=== PATIENT | female | born 2000 | race Caucasian/White ===

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

== ENCOUNTER 2023-08-15 12:39 | Inpatient (IN) | payer OTHER ==
--- NOTE | 2023-08-15 13:18 | ED ---
General Adult HPI - General Chief complaint: Psychiatric Symptoms Stated complaint: Mental Health Petition Time Seen by Provider: 08/15/23 12:48 Source: patient, police, RN notes reviewed Mode of arrival: ambulatory Limitations: no limitations - History of Present Illness Initial comments: Patient is a pleasant 23-year-old female presenting to the emergency department with concerns for mental health evaluation. Patient has petition. Patient admits to being depressed and has suicidal thoughts. Patient did have a sword under her bed, she is unclear what type of sort this was. No homicidal thoughts. No new physical complaints. Patient states she was forced to take time off her medication a month ago. She states the person she lives with would not give her money to get her medications because they thought the medications were making things worse. No alcohol or street drug use. - Related Data Previous Rx's Medication Instructions Recorded Ibuprofen 400 mg PO Q6H PRN #20 tablet 08/21/17 Allergies Allergy/AdvReac Type Severity Reaction Status Date / Time No Known Allergies Allergy Verified 08/21/17 21:32 Review of Systems ROS Statement: Those systems with pertinent positive or pertinent negative responses have been documented in the HPI. ROS Other: All systems not noted in ROS Statement are negative. 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 Absent: tenderness Extremities exam: Present: normal inspection Neurological exam: Present: alert Psychiatric exam: Present: flat affect Skin exam: Present: normal color Course Vital Signs 08/15/23 12:45 Temperature 99.0 F Pulse Rate 103 H Respiratory 18 Rate Blood Pressure 125/87 O2 Sat by Pulse 98 Oximetry Medical Decision Making - Medical Decision Making Was pt. sent in by a medical professional or institution ([facility] Vega, HAND SCREEN PRINTER, urgent care, hospital, or halfway...) When possible be specific @ -No Did you speak to anyone other than the patient for history (EMS, parent, family, police, friend...)? What history was obtained from this source @ -No Did you review nursing and triage notes (agree or disagree)? Why? @ -I reviewed and agree with nursing and triage notes Were old charts reviewed (outside hosp., previous admission, EMS record, old EKG, old radiological studies, urgent care reports/EKG's, halfway records)? Report findings @ -No old charts were reviewed Differential Diagnosis (chest pain, altered mental status, abdominal pain women, abdominal pain men, vaginal bleeding, weakness, fever, dyspnea, syncope, headache, dizziness, GI bleed, back pain, seizure, CVA, palpatations, mental health, musculoskeletal)? @ -Differential Mental Health Depression, anxiety, bipolar, psychosis, schizophrenia, borderline personality, situational depression, adjustment disorder, behavioral disorder, brain tumor, malingering, substance abuse, encephalopathy, medication reaction, dementia, hypothyroidism, degenerative neurologic disorder, lupus.... This is not meant to be all-inclusive list EKG interpreted by me (3pts min.). @ -As above X-rays interpreted by me (1pt min.). @ -None done CT interpreted by me (1pt min.). @ -None done U/S interpreted by me (1pt. min.). @ -None done What testing was considered but not performed or refused? (CT, X-rays, U/S, labs)? Why? @ -None What meds were considered but not given or refused? Why? @ -None Did you discuss the management of the patient with other professionals (professionals i.e. [facility] Vega, HAND SCREEN PRINTER, lab, RT, psych nurse, director social, textile technical officer, teacher, sheriff officer, telephonic case manager)? Give summary @ -Case was discussed with mental health worker with plans for admission. Was smoking cessation discussed for >3mins.? @ -No Was critical care preformed (if so, how long)? @ -No Were there social determinants of health that impacted care today? How? (Homelessness, low income, unemployed, alcoholism, drug addiction, transportation, low edu. Level, literacy, decrease access to med. care, [place] [facility], rehab)? @ -No Was there de-escalation of care discussed even if they declined (Discuss DNR or withdrawal of care, Hospice)? DNR status @ -No What co-morbidities impacted this encounter? (DM, HTN, Smoking, COPD, CAD, Cancer, CVA, ARF, Chemo, Hep., AIDS, mental health diagnosis, sleep apnea, morbid obesity)? @ -None Was patient admitted / discharged? Hospital course, mention meds given and route, prescriptions, significant lab abnormalities, going to OR and other pertinent info. @ -Patient presents with depression and suicidal thoughts. Sleeping with a sword under her bed. Patient seen by mental health with plans for admission Positive clinical certificate completed Undiagnosed new problem with uncertain prognosis? @ -No Drug Therapy requiring intensive monitoring for toxicity (Heparin, Nitro, Insulin, Cardizem)? @ -No Were any procedures done? @ -No Diagnosis/symptom? @ -Depression, suicidal ideation Acute, or Chronic, or Acute on Chronic? @ -Acute, acute Uncomplicated (without systemic symptoms) or Complicated (systemic symptoms)? @ -Default Side effects of treatment? @ -No Exacerbation, Progression, or Severe Exacerbation? @ -No Poses a threat to life or bodily function? How? (Chest pain, [place], [place], pneumonia, PE, COPD, DKA, ARF, appy, cholecystitis, CVA, Diverticulitis, Homicidal, Suicidal, threat to staff... and all critical care pts) @ -No Disposition Clinical Impression: Depression, Suicidal ideation Disposition: TRANSFER TO PSYCH HOSP/UNIT Is patient prescribed a controlled substance at d/c from ED?: No Referrals: Geovanni Augustin MD [Primary Care Provider] - 1-2 days Time of Disposition: 14:57
[2023-08-15 15:13] LABS: Amphetamine Screen,Urine Not Detected (NotDetected); Barbiturate Screen,Urine Not Detected (NotDetected); Benzodiazepines Screen,Urine Not Detected (NotDetected); Cocaine Screen,Urine Not Detected (NotDetected); Methadone Screen, Urine Not Detected (NotDetected); Opiate Screen,Urine Not Detected (NotDetected); Oxycodone Screen, Urine Not Detected (NotDetected); Phencyclidine Screen,Urine Not Detected (NotDetected); Tricyclic Antidepressant,Urine Not Detected (NotDetected); Urn Cannabinoid Scrn Not Detected (NotDetected)
[2023-08-15] MEDS ORDERED: MAGNESIUM HYDROXIDE 2,400 MG/30 ML CUP PO PRN (17:37)
[2023-08-15] MEDS ORDERED: LORazepam 1 MG TAB PO PRN (17:37)
[2023-08-15] MEDS ORDERED: IBUPROFEN 600 MG TAB PO PRN (17:37)
[2023-08-15] MEDS ORDERED: LORazepam 2 MG/ML INJ IM PRN (17:37)
[2023-08-15] MEDS ORDERED: MAG HYDROX/AL HYDROX/SIMETH 355 ML BOTTLE PO PRN (17:37)
[2023-08-15] MEDS ORDERED: haloperidoL 5 MG TAB PO PRN (17:37)
[2023-08-15] MEDS ORDERED: HALOPERIDOL LACTATE 5 MG/ML 1 ML VIAL IM PRN (17:37)
[2023-08-15 21:33] LABS: Appearance,Urine Cloudy (Clear); Bilirubin,Urine Negative (Negative); Blood,Urine Negative (Negative); Color,Urine Light Yellow; Glucose,Urine (UA) Negative (Negative); Ketones,Urine Negative (Negative); Leukocyte Esterase,Urine Negative (Negative); Mucus,Urine Occasional /hpf; Nitrite,Urine Negative (Negative); Protein,Urine Negative (Negative); Squamous Epithelial Cell,Urine 6 /hpf (0-4); Urobilinogen,Urine <2.0 mg/dL (<2.0); WBC,Urine 1 /hpf (0-5)
[2023-08-16 06:37] LABS: Basophils # (A) 0.1 k/uL (0-0.2); Basophils % (A) 2 %; Eosinophils # (A) 0.2 k/uL (0-0.7); Eosinophils % (A) 4 %; HCT 39.8 % (34.0-46.0); HGB 13.1 gm/dL (11.4-16.0); Lymphocytes # (A) 1.4 k/uL (1.0-4.8); Lymphocytes % (A) 29 %; MCH 30.1 pg (25.0-35.0); MCHC 32.9 g/dL (31.0-37.0); MCV 91.4 fL (80.0-100.0); Mean Platelet Volume 6.9; Monocytes # (A) 0.4 k/uL (0-1.0); Monocytes % (A) 7 %; Neutrophils # (A) 2.8 k/uL (1.3-7.7); Neutrophils % (A) 57 %; Platelet Count 308 k/uL (150-450); RBC 4.35 m/uL (3.80-5.40); RDW 12.8 % (11.5-15.5); WBC 4.9 k/uL (3.8-10.6)
[2023-08-16 07:00] LABS: ALT 13 U/L (4-34); AST 21 U/L (14-36); African American GFR (CKD) >90 (>60 ml/min/1.73 sqM); Albumin 3.8 g/dL (3.5-5.0); Alkaline Phosphatase 66 U/L (38-126); Anion Gap 7 mmol/L; Blood Urea Nitrogen 7 mg/dL (7-17); Calcium 9.2 mg/dL (8.4-10.2); Carbon Dioxide 21 mmol/L (22-30); Chloride 111 mmol/L (98-107); Glucose 86 mg/dL (74-99); Non-African American GFR(CKD) >90 (>60 ml/min/1.73 sqM); Potassium 4.6 mmol/L (3.5-5.1); Sodium 139 mmol/L (137-145); Total Bilirubin 0.7 mg/dL (0.2-1.3); Total Protein 6.5 g/dL (6.3-8.2)
[2023-08-16 13:28] LABS: Chol/HDL Ratio 2.34 Ratio; LDL Cholesterol,Calculated 56.1 mg/dL (0.0-131.0); VLDL Calculation 7.52 mg/dL (5.00-40.00)
--- NOTE | 2023-08-16 14:13 | P.MDCNMH ---
History of Present Illness H&P Date: 08/16/23 Chief Complaint: Mental health evaluation * 23-year-old patient with past medical history significant for depression presents to the emergency department for evaluation. Patient has been having suicidal thoughts and has been depressed. Patient has been complaining of interpersonal stressors and financial issues. Patient denies use of alcohol or illicit drugs * Workup at the time of presentation in ER included CBC which showed WBC of 4.9 hemoglobin 13.1 platelet count of 308 * serum chemistry obtained showed sodium 139 potassium 4.6 chloride 111, dioxide 21 BUN 7 creatinine 0.62 TSH of 2.250 * Urine analysis showed cloudy urine, negative for WBC * Urine toxicology negative for any illicit drugs * Patient tested negative for influenza COVID and RSV REVIEW OF SYSTEMS: Depressed mood suicidal ideation CONSTITUTIONAL: No fever, no malaise, no fatigue. HEENT: No recent visual problems or hearing problems. Denied any sore throat. CARDIOVASCULAR: No chest pain, orthopnea, PND, no palpitations, no syncope. PULMONARY: No shortness of breath, no cough, no hemoptysis. GASTROINTESTINAL: No diarrhea, no nausea, no vomiting, no abdominal pain. NEUROLOGICAL: No headaches, no weakness, no numbness. HEMATOLOGICAL: Denies any bleeding or petechiae. GENITOURINARY: Denies any burning micturition, frequency, or urgency. MUSCULOSKELETAL/RHEUMATOLOGICAL: Denies any joint pain, swelling, or any muscle pain. ENDOCRINE: Denies any polyuria or polydipsia. PHYSICAL EXAMINATION: GENERAL: The patient is alert and oriented x3, not in any acute distress. Well developed, well nourished. HEENT: Pupils are round and equally reacting to light. EOMI. CARDIOVASCULAR: S1 and S2 present. Tachycardia noted PULMONARY: Chest is clear to auscultation, no wheezing or crackles. ABDOMEN: Soft, nontender, nondistended, normoactive bowel sounds. No palpable organomegaly. MUSCULOSKELETAL: No joint swelling or deformity. EXTREMITIES: No cyanosis, clubbing, or pedal edema. NEUROLOGICAL: Gross neurological examination did not reveal any focal deficits. SKIN: No rashes. 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 History of Any Multi-Drug Resistant Organisms: None Reported Past Surgical History: No Surgical Hx Reported Smoking Status: Never smoker Past Alcohol Use History: None Reported Past Drug Use History: None Reported Medications and Allergies Home Medications Medication Instructions Recorded Confirmed Type No Known Home Medications 08/15/23 08/15/23 History Allergies Allergy/AdvReac Type Severity Reaction Status Date / Time No Known Allergies Allergy Verified 08/15/23 16:50 Physical Exam Vitals: Vital Signs Temp Pulse Pulse Resp BP BP Pulse Ox 08/15/23 18:41 98.4 F 115 H 20 131/72 98 08/15/23 12:45 99.0 F 103 H 18 125/87 98 Intake and Output 08/15/23 08/16/23 08/16/23 22:59 06:59 14:59 Other: Weight 54.686 kg Cranial Nerve Examination - Cranial Nerves Cranial Nerve I- Olfactory: Intact Cranial Nerve II- Optic: Intact Cranial Nerve III- Oculomotor: Intact Cranial Nerve IV- Trochlear: Intact Cranial Nerve V- Trigeminal: Intact Cranial Nerve - Abducens: Intact Cranial Nerve VII- Facial: Intact Cranial Nerve VIII- Auditory: Intact Cranial Nerve IX- Glossopharyngeal: Intact Cranial Nerve X- Vagus: Intact Cranial Nerve XI- Accessory: Intact Cranial Nerve XII- Hypoglossal: Intact Results CBC & Chem 7: 08/16/23 06:19 08/16/23 06:19 Labs: Abnormal Lab Results - Last 24 Hours (Table) 08/15/23 08/16/23 Range/Units 14:53 06:19 Chloride 111 H (98-107) mmol/L Carbon Dioxide 21 L (22-30) mmol/L Urine Appearance Cloudy H (Clear) Ur Squamous Epith Cells 6 H (0-4) /hpf Urine Mucus Occasional H (None) /hpf Assessment and Plan Assessment: Assessment and plan * Depression with suicidal ideation * Tachycardia rule out arrhythmia * Continue to maintain maximum safety precautions while admitted in behavioral health unit, management per psychiatry team * Internal medicine team will continue to follow along, blood work reviewed including TSH serum chemistry urinalysis toxicology * Continue to monitor vitals, noted to have tachycardia likely secondary to anxiety * Regards to tachycardia EKG ordered * CODE STATUS is full code Time with Patient: Greater than 30
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
[2023-08-16] MEDS: PALIPERIDONE 3 MG TAB.ER.24 PO SCH (20:33)
[2023-08-17] MEDS: DULoxetine HCL 30 MG CAPSULE.DR PO SCH (08:34)
--- NOTE | 2023-08-17 17:50 | P.PN ---
Progress Note - Text Progress Note Date: 08/17/23 Interval history: Patient was seen sitting in TV lounge but keeping to herself. She was directable and agreeable to speak with fiction writer, but appears somewhat guarded and withdrawn. She reports her mood is a "bit better" today. She slept 6+ hours last night and took a nap. Regarding hear eating habits and her weight loss, she denies binging or purging and denies intentionally restricting food for weight loss. She reports she lost weight because she lost her appetite due to depression and there was not much food in the house (lives with mother and uncle) due to finances. She states she has been eating since she was admitted and has reports she has gained 4 pounds. She denies any suicidal or homicidal ideation, intent or plan. She denies any auditory or visual hallucinations today, but there is concern she may be minimizing her symptoms. Patient denies any side effects from the medications and has been compliant with meds. Mental status exam: General Appearance: Patient appears to be stated age, underweight female. Behavior: No agitated behavior. Patient is calm and directable, appears guarded and withdrawn. Speech: Patient's speech is fluent and non-pressured. Mood/Affect: Mood is improving mildly, affect is congruent and constricted. Suicidality/Homicidality: Patient denies having any suicidal or homicidal ideation intent or plan. Perceptions: Patient denies any auditory or visual hallucinations, but there is concern she may be minimizing her symptoms. Though content/process: There is no evidence of any delusional thought content and thought process is linear and goal-directed. Memory and concentration: AOX3, grossly intact for the purposes of this session Judgment and insight: Improving mildly Assessment/Plan: Continue with current diagnosis. Patient continues to meet criteria for inpatient psychiatric admission for symptom stabilization and safety. Cymbalta 30 mg daily started this morning for depression/anxiety. Consider increasing as tolerated. Continue Invega 3 mg QHS for psychosis. Consider increasing as tolerated for psychosis. Monitor for medication compliance and for any psychotropic medication side effects. Will continue to monitor ongoing response to treatment. Encouraged participation in milieu.
[2023-08-18 10:35] VITALS: BMI 16.8
--- NOTE | 2023-08-18 12:03 | P.PN ---
Progress Note - Text Progress Note Date: 08/18/23 Interval history: Patient was seen in the hallway. She was directable and agreeable to speak with ticket writer if the office. She reports her mood is "stabilizing a bit" today. Patient is having a flight of ideas, rambling on about many different topics. Patient is going to groups, and she is sleeping well. Appetite is good. Patient was endorsing paranoia, illogical thought process. She denies any suicidal or homicidal ideation, intent or plan. She denies any auditory or visual hallucinations today, but there is concern she may be minimizing her symptoms. Patient denies any side effects from the medications and has been compliant with meds. Mental status exam: General Appearance: Patient appears to be stated age, underweight female. Behavior: No agitated behavior. Patient is calm and directable, appears guarded and withdrawn. Speech: Patient's speech is fluent and non-pressured. Mood/Affect: Mood is improving mildly, affect is congruent and constricted. Suicidality/Homicidality: Patient denies having any suicidal or homicidal ideation intent or plan. Perceptions: Patient denies any auditory or visual hallucinations, but there is concern she may be minimizing her symptoms. Though content/process: Patient is fairly delusional, endorsing paranoia, multiple loosely formed delusions. Disorganized at times. Memory and concentration: AOX3, grossly intact for the purposes of this session Judgment and insight: Improving mildly IMPRESSIONS: Schizoaffective disorder, depressive type Autism spectrum disorder r/o PTSD Charcot Monalisa Tooth disease by history Plan: -Patient continues to meet criteria for inpatient psychiatric admission for symptom stabilization and safety. Patient has signed adult voluntary form and medication consent and was placed in patient's chart. -Medications: increase Cymbalta 60 mg qd for depression/anxiety, d/c Invega, Risperdal 2mg qhs for psychosis/mood stabilization. -When necessary Ativan and Haldol for agitation/aggression. -NRT - not needed as patient does not smoke. -SW on board for discharge planning. Encouraged the patient to participate in milieu. []
[2023-08-18] MEDS: risperiDONE 2 MG TAB PO SCH (20:26)
[2023-08-19 07:16] VITALS: RESP 16
[2023-08-19] MEDS: DULoxetine HCL 60 MG CAPSULE.DR PO SCH (07:59)
[2023-08-19] MEDS ORDERED: ONDANSETRON 4 MG TAB PO PRN (10:26)
[2023-08-19] MEDS: ZIPRASIDONE 20 MG CAP PO SCH (11:02)
[2023-08-19] MEDS: FLUTICASONE 50MCG/SPRAY NASAL 16GM EA NOSTRIL SCH (11:03)
--- NOTE | 2023-08-19 11:29 | P.PN ---
Progress Note - Text Progress Note Date: 08/19/23 Interval history: Patient was seen in the hallway. She was directable and agreeable to speak with resume writer if the office. She states that she was feeling nauseated and states that she was having difficulty with the medication and was requesting to have it changed. She claims her mood and anxiety are "going up". Patient is going to groups, and she did not sleep well last night, and was awoken by nausea. Patient was asking for antinausea medication. We spoke about trying a different antipsychotic with mood stabilizing properties including Geodon and patient was agreeable to start this today. Appetite is good. Patient appears fairly guarded and withdrawn. She denies any suicidal or homicidal ideation, intent or plan. Patient was mildly less focused today on delusions and paranoia. she denies any auditory or visual hallucinations today, but there is concern she may be minimizing her symptoms. Patient denies any side effects from the medications and has been compliant with meds. Mental status exam: General Appearance: Patient appears to be stated age, underweight female. Behavior: No agitated behavior. Patient is calm and directable, appears guarded and withdrawn. Speech: Patient's speech is fluent and non-pressured. quiet tone. Mood/Affect: Mood is improving mildly, affect is congruent and constricted. Suicidality/Homicidality: Patient denies having any suicidal or homicidal ideation intent or plan. Perceptions: Patient denies any auditory or visual hallucinations, but there is concern she may be minimizing her symptoms. Though content/process: Today, there is no evidence of any delusional thought content and thought process is linear and goal-directed. Memory and concentration: AOX3, grossly intact for the purposes of this session Judgment and insight: Improving mildly IMPRESSIONS: Schizoaffective disorder, depressive type Autism spectrum disorder r/o PTSD Charcot Monalisa Tooth disease by history Plan: -Patient continues to meet criteria for inpatient psychiatric admission for symptom stabilization and safety. Patient has signed adult voluntary form and medication consent and was placed in patient's chart. -Medications: Cymbalta 60 mg qd for depression/anxiety, d/c Risperdal, replace with geodon 20 mg bid for psychosis/mood stabilization, zofran prn for nausea -When necessary Ativan and Haldol for agitation/aggression. -NRT - not needed as patient does not smoke. -SW on board for discharge planning. Encouraged the patient to participate in m ilieu. Likely discharge either versus Friday if patient improves psychiatrically. Will be discharged home.
--- NOTE | 2023-08-20 11:41 | P.PN ---
Progress Note - Text Progress Note Date: 08/20/23 Interval history: Patient was seen in the hallway. She was directable and agreeable to speak with show card writer if the office. She states she is feeling a bit better today. Her anxiety is a little bit present today, and her mood is more stable than yesterday. Appetite is good. Patient claims she slept very well last night. She states that the Geodon has been helping her feel more stable today. Patient still seems mildly guarded. She denies any suicidal or homicidal ideation, intent or plan. Patient was mildly less focused today on delusions and paranoia, improving. she denies any auditory or visual hallucinations today, but there is concern she may be minimizing her symptoms. Patient denies any side effects from the medications and has been compliant with meds. Mental status exam: General Appearance: Patient appears to be stated age, underweight female. Tall, wearing glasses, short hair. Behavior: No agitated behavior. Patient is calm and directable, appears guarded, mildly improving Speech: Patient's speech is fluent and non-pressured. quiet tone. Mood/Affect: Mood is improving mildly, affect is congruent and constricted. Suicidality/Homicidality: Patient denies having any suicidal or homicidal ideation intent or plan. Perceptions: Patient denies any auditory or visual hallucinations. Though content/process: Today, there is no evidence of any delusional thought content and thought process is linear and goal-directed. Less concrete today. Memory and concentration: AOX3, grossly intact for the purposes of this session Judgment and insight: Improving mildly IMPRESSIONS: Schizoaffective disorder, depressive type Autism spectrum disorder r/o PTSD Charcot Monalisa Tooth disease by history Plan: -Patient continues to meet criteria for inpatient psychiatric admission for symptom stabilization and safety. Patient has signed adult voluntary form and medication consent and was placed in patient's chart. -Medications: Cymbalta 60 mg qd for depression/anxiety, geodon 20 mg bid for psychosis/mood stabilization, consider increasing tomorrow if needed. zofran prn for nausea -Collision Worker reviewed EKG. -When necessary Ativan and Haldol for agitation/aggression. -NRT - not needed as patient does not smoke. -SW on board for discharge planning. Encouraged the patient to participate in milieu. Likely discharge Friday if patient continues to improve psychiatrically. Will be discharged home.
--- NOTE | 2023-08-21 10:01 | P.PN ---
Progress Note - Text Progress Note Date: 08/21/23 Interval history: Patient was seen in group. She was directable and agreeable to speak with magnetic tape typewriter operator if the office. She states she is feeling a bit a little financially anxious because of tax season right now. Patient claims her mood has been stable, and besides financial stresses, she feels good. She states that she is eating well, and sleeping well. She denies any suicidal or homicidal ideation, intent or plan. Spoke with patient about the discharge plan for tomorrow, patient agreeable. She denies any auditory or visual hallucinations today, but there is concern she may be minimizing her symptoms. Patient denies any side effects from the medications and has been compliant with meds. Mental status exam: General Appearance: Patient appears to be stated age, underweight female. Tall, wearing glasses, short hair. Behavior: No agitated behavior. Patient is calm and directable, appears guarded, improving Speech: Patient's speech is fluent and non-pressured. quiet tone. Improving mildly Mood/Affect: Mood is improving, affect is congruent and constricted. Improving mildly Suicidality/Homicidality: Patient denies having any suicidal or homicidal ideation intent or plan. Perceptions: Patient denies any auditory or visual hallucinations. Though content/process: Today, there is no evidence of any delusional thought content and thought process is linear and goal-directed. Memory and concentration: AOX3, grossly intact for the purposes of this session Judgment and insight: Improving mildly IMPRESSIONS: Schizoaffective disorder, depressive type Autism spectrum disorder r/o PTSD Charcot Monalisa Tooth disease by history Plan: -Patient continues to meet criteria for inpatient psychiatric admission for symptom stabilization and safety. Patient has signed adult voluntary form and medication consent and was placed in patient's chart. -Medications: Cymbalta 60 mg qd for depression/anxiety, geodon 20 mg bid for psychosis/mood stabilization, zofran prn for nausea -When necessary Ativan and Haldol for agitation/aggression. -NRT - not needed as patient does not smoke. -SW on board for discharge planning. Encouraged the patient to participate in milieu. Likely discharge tomorrow if patient continues to improve psychiatrically. Will be discharged home.
[2023-08-22 07:43] VITALS: BP 108/52; PULSE 85; TEMP 99.3
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
== END 2023-08-22 12:40 | disposition home or self-care (01) | DRG 885 ==
LOC: EC 12:39 → 3MHU 17:34
PROVIDERS: ADMIT Psychiatry & Neurology Psychiatry; ATTEND Psychiatry & Neurology Psychiatry
DX: F25.1 Schizoaffective disorder, depressive type (principal); R45.851 Suicidal ideations; Z68.1 Body mass index [BMI] 19.9 or less, adult; F43.10 Post-traumatic stress disorder, unspecified; G60.0 Hereditary motor and sensory neuropathy; F84.0 Autistic disorder; Z11.52 Encounter for screening for COVID-19; G89.29 Other chronic pain; R63.6 Underweight; Z91.51 Personal history of suicidal behavior; Z56.0 Unemployment, unspecified; Z71.51 Drug abuse counseling and surveillance of drug abuser; Z71.41 Alcohol abuse counseling and surveillance of alcoholic; Z63.72 Alcoholism and drug addiction in family; Z81.3 Family history of other psychoactive substance abuse and dependence; Z81.8 Family history of other mental and behavioral disorders
CPT/HCPCS: 80053; 80061; 80306; 81001; 81025; 82075; 83036; 84443; 85025; 87636; 93005; 99285

== ENCOUNTER 2023-10-19 20:37 | Emergency (ER) | payer MEDICAID, OTHER ==
[2023-10-19 21:22] VITALS: TEMP 98.6
--- NOTE | 2023-10-19 21:23 | ED ---
General Adult HPI - General Chief complaint: Allergic Reaction Stated complaint: possible allergic reaction Time Seen by Provider: 10/19/23 21:06 Source: patient Mode of arrival: ambulatory Limitations: no limitations - History of Present Illness Initial comments: Dictation was produced using [employer] dictation software. please excuse any grammatical, word or spelling errors. Chief Complaint: 23-year-old female presents to the emergency department with multiple complaints History of Present Illness: Patient 23-year-old female she has past medical hi story of psychiatric illness. Patient was admitted to psychiatric floor in July of this year. Patient has history of schizophrenia spectrum disorder, major depressive disorder. Patient after being admitted for few days was started on outpatient Geodon that she takes twice daily. Patient states that she started on this medication a month ago by her psychiatrist. Patient states that she has not followed up with a psychiatrist due to insurance change issues. States that since starting the medication she has had symptoms of photophobia, blurred vision and nausea. Patient also complains of nasal congestion and chest pain. Patient has no cardiac history. States pain does not radiate. Describes it as a sharp pain. The ROS documented in this emergency department record has been reviewed and confirmed by me. Those systems with pertinent positive or negative responses have been documented in the HPI. All other systems are other negative and/or noncontributory. - Related Data Previous Rx's Medication Instructions Recorded DULoxetine HCL [Cymbalta] 60 mg PO DAILY 30 Days #30 cap 08/22/23 Fluticasone Nasal [place] [Flonase 2 spray EA NOSTRIL DAILY #0 ml 08/22/23 Nasal [place]] Ibuprofen [Motrin] 600 mg PO Q6HR PRN tab 08/22/23 Ziprasidone [Geodon] 20 mg PO BID 30 Days #60 cap 08/22/23 Allergies Allergy/AdvReac Type Severity Reaction Status Date / Time No Known Allergies Allergy Verified 10/19/23 20:57 Review of Systems ROS Statement: Those systems with pertinent positive or pertinent negative responses have been documented in the HPI. ROS Other: All systems not noted in ROS Statement are negative. 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 History of Any Multi-Drug Resistant Organisms: None Reported Past Surgical History: No Surgical Hx Reported Past Anesthesia/Blood Transfusion Reactions: No Reported Reaction Past Psychological History: PTSD Smoking Status: Never smoker Past Alcohol Use History: None Reported Past Drug Use History: None Reported General Exam - General Exam Comments Initial Comments: PHYSICAL EXAM: General Impression: Alert and oriented x3, not in acute distress HEENT: Normocephalic atraumatic, extra-ocular movements intact, pupils equal and reactive to light bilaterally, mucous membranes moist. Cardiovascular: Heart regular rate and rhythm Chest: Able to complete full sentences, no retractions, no tachypnea Abdomen: abdomen soft, non-tender, non-distended, no organomegaly Musculoskeletal: Pulses present and equal in all extremities, no peripheral edema Motor: no focal deficits noted Neurological: CN II-XII grossly intact, no focal motor or sensory deficits noted Skin: Intact with no visualized rashes Psych: Normal affect and mood Limitations: no limitations Course Vital Signs 10/19/23 20:53 Temperature 98.6 F Pulse Rate 79 Respiratory 20 Rate Blood Pressure 127/75 O2 Sat by Pulse 99 Oximetry - Reevaluation(s) Reevaluation #1: 10/19/23 22:12 I requested that EPS evaluate the patient and make recommendations on patient's medications. Our EPS nurse stated that she did speak with her psychiatrist who recommended patient hold her nighttime dose and restart her medications tomorrow and follow-up. Medical Decision Making - Medical Decision Making Was pt. sent in by a medical professional or institution ([facility], [facility], urgent care, hospital, or long term...) When possible be specific @ -No Did you speak to anyone other than the patient for history (EMS, parent, family, police, friend...)? What history was obtained from this source @ -No Did you review nursing and triage notes (agree or disagree)? Why? @ -I reviewed and agree with nursing and triage notes Were old charts reviewed (outside hosp., previous admission, EMS record, old EKG, old radiological studies, urgent care reports/EKG's, long term records)? Report findings @ -No old charts were reviewed Differential Diagnosis (chest pain, altered mental status, abdominal pain women, abdominal pain men, vaginal bleeding, musculoskeletal, weakness, fever, dyspnea, syncope, headache, dizziness, GI bleed, back pain, seizure, CVA, palpatations, mental health)? @ -Differential Weakness: Hypoglycemia, shock, sepsis, hyponatremia, anemia, infection, [place], ETOH, adverse medicine reaction, overdose, stroke, this is not meant to be an all-inclusive list. EKG interpreted by me (3pts min.). @ -None done X-rays interpreted by me (1pt min.). @ -Two-view chest x-ray is nonacute CT interpreted by me (1pt min.). @ -None done U/S interpreted by me (1pt. min.). @ -None done What testing was considered but not performed or refused? (CT, X-rays, U/S, labs)? Why? @ -None What meds were considered but not given or refused? Why? @ -None Did you discuss the management of the patient with other professionals (professionals i.e. , PA, EN[employer] PATTERNMAKER, lab, RT, psych nurse, social and political studies professor, laundry presser, teacher, enforcement safety officer, casework specialist)? Give summary @ -See above Was smoking cessation discussed for >3mins.? @ -No Was critical care preformed (if so, how long)? @ -No Were there social determinants of health that impacted care today? How? (Homelessness, low income, unemployed, alcoholism, drug addiction, transportation, low edu. Level, literacy, decrease access to med. care, penitentiary, rehab)? @ -No Was there de-escalation of care discussed even if they declined (Discuss DNR or withdrawal of care, Hospice)? DNR status @ -No What co-morbidities impacted this encounter? (DM, HTN, Smoking, COPD, CAD, Cancer, CVA, ARF, Chemo, Hep., AIDS, mental health diagnosis, sleep apnea, morbid obesity)? @ -None Was patient admitted / discharged? Hospital course, mention meds given and route, prescriptions, significant lab abnormalities, going to OR and other pertinent info. @ -23-year-old female presents emergency department suspicious of adverse reactions to Geodon medications. Vital signs stable. Patient well-appearing at bedside. Labs unremarkable except for some mild hyperglycemia with a level 71. Patient denies any symptoms of hypoglycemia. She is well-appearing at the bedside. Patient given oral intake with improvement of glucose to 98. Testing negative. Patient evaluated EPS who spoke with psychiatrist recommended to her to hold her Geodon night dose today and to resume tomorrow. Patient otherwise discharged with follow-up with outpatient psychiatry. Undiagnosed new problem with uncertain prognosis? @ -No Drug Therapy requiring intensive monitoring for toxicity (Heparin, Nitro, Insulin, Cardizem)? @ -No Were any procedures done? @ -No Diagnosis/symptom? Acute, or Chronic, or Acute on Chronic? Uncomplicated (without systemic symptoms) or Complicated (systemic symptoms)? @ -Adverse reaction to medication Side effects of treatment? @ -No Exacerbation, Progression, or Severe Exacerbation? @ -No Poses a threat to life or bodily function? How? (Chest pain, [place], [place], pneumonia, PE, COPD, DKA, ARF, appy, cholecystitis, CVA, Diverticulitis, Homicidal, Suicidal, threat to staff... and all critical care pts) @ -No - Lab Data Result diagrams: 10/19/23 21:51 10/19/23 21:51 Lab Results 10/19/23 10/19/23 10/19/23 Range/Units 21:51 21:51 21:51 WBC 7.5 (3.8-10.6) k/uL RBC 4.71 (3.80-5.40) m/uL Hgb 13.9 (11.4-16.0) gm/dL Hct 42.9 (34.0-46.0) % MCV 91.2 (80.0-100.0) fL MCH 29.5 (25.0-35.0) pg MCHC 32.4 (31.0-37.0) g/dL RDW 12.3 (11.5-15.5) % Plt Count 321 (150-450) k/uL MPV 7.1 Neutrophils % 60 % Lymphocytes % 29 % Monocytes % 7 % Eosinophils % 2 % Basophils % 1 % Neutrophils # 4.5 (1.3-7.7) k/uL Lymphocytes # 2.1 (1.0-4.8) k/uL Monocytes # 0.5 (0-1.0) k/uL Eosinophils # 0.1 (0-0.7) k/uL Basophils # 0.1 (0-0.2) k/uL Sodium 143 (137-145) mmol/L Potassium 4.1 (3.5-5.1) mmol/L Chloride 108 H (98-107) mmol/L Carbon Dioxide 28 (22-30) mmol/L Anion Gap 7 mmol/L BUN 16 (7-17) mg/dL Creatinine 1.03 (0.52-1.04) mg/dL Est GFR (CKD-EPI)AfAm 88 (>60 ml/min/1.73 sqM) Est GFR (CKD-EPI)NonAf 76 (>60 ml/min/1.73 sqM) Glucose 71 L (74-99) mg/dL POC Glucose (mg/dL) (70-110) mg/dL POC Glu Digital Media Director ID Calcium 9.7 (8.4-10.2) mg/dL Influenza Type A (PCR) Not Detected (Not Detectd) Influenza Type B (PCR) Not Detected (Not Detectd) RSV (PCR) Not Detected (Not Detectd) SARS-CoV-2 (PCR) Not Detected (Not Detectd) 10/19/23 Range/Units 23:48 WBC (3.8-10.6) k/uL RBC (3.80-5.40) m/uL Hgb (11.4-16.0) gm/dL Hct (34.0-46.0) % MCV (80.0-100.0) fL MCH (25.0-35.0) pg MCHC (31.0-37.0) g/dL RDW (11.5-15.5) % Plt Count (150-450) k/uL MPV Neutrophils % % Lymphocytes % % Monocytes % % Eosinophils % % Basophils % % Neutrophils # (1.3-7.7) k/uL Lymphocytes # (1.0-4.8) k/uL Monocytes # (0-1.0) k/uL Eosinophils # (0-0.7) k/uL Basophils # (0-0.2) k/uL Sodium (137-145) mmol/L Potassium (3.5-5.1) mmol/L Chloride (98-107) mmol/L Carbon Dioxide (22-30) mmol/L Anion Gap mmol/L BUN (7-17) mg/dL Creatinine (0.52-1.04) mg/dL Est GFR (CKD-EPI)AfAm (>60 ml/min/1.73 sqM) Est GFR (CKD-EPI)NonAf (>60 ml/min/1.73 sqM) Glucose (74-99) mg/dL POC Glucose (mg/dL) 98 (70-110) mg/dL POC Glu Digital Media Director ID Calcium (8.4-10.2) mg/dL Influenza Type A (PCR) (Not Detectd) Influenza Type B (PCR) (Not Detectd) RSV (PCR) (Not Detectd) SARS-CoV-2 (PCR) (Not Detectd) Disposition Clinical Impression: Reaction, drug, adverse Disposition: HOME SELF-CARE Condition: Fair Instructions (If sedation given, give patient instructions): Non-diabetic Hypoglycemia (ED) Additional Instructions: follow up w psychiatrist Is patient prescribed a controlled substance at d/c from ED?: No Referrals: Geovanni Augustin MD [Primary Care Provider] - 1-2 days Time of Disposition: 00:03
--- NOTE | 2023-10-19 22:05 | XR ---
EXAMINATION TYPE: XR chest 2V DATE OF EXAM: 10/19/2023 COMPARISON: Chest x-ray March 16, 2016 HISTORY: Chest pain TECHNIQUE: Frontal and lateral views of the chest are obtained. FINDINGS: There is no suspicious focal air space opacity, pleural effusion, or pneumothorax seen. The cardiac silhouette size is stab le and within normal limits. The osseous structures are intact. Distended stomach with air-fluid le debbie noted. IMPRESSION: No acute cardiopulmonary process.
[2023-10-19 22:16] LABS: African American GFR (CKD) 88 (>60 ml/min/1.73 sqM); Anion Gap 7 mmol/L; Blood Urea Nitrogen 16 mg/dL (7-17); Calcium 9.7 mg/dL (8.4-10.2); Carbon Dioxide 28 mmol/L (22-30); Chloride 108 mmol/L (98-107); Glucose 71 mg/dL (74-99); Non-African American GFR(CKD) 76 (>60 ml/min/1.73 sqM); Potassium 4.1 mmol/L (3.5-5.1); Sodium 143 mmol/L (137-145)
[2023-10-19 22:30] LABS: Basophils # (A) 0.1 k/uL (0-0.2); Basophils % (A) 1 %; Eosinophils # (A) 0.1 k/uL (0-0.7); Eosinophils % (A) 2 %; HCT 42.9 % (34.0-46.0); HGB 13.9 gm/dL (11.4-16.0); Lymphocytes # (A) 2.1 k/uL (1.0-4.8); Lymphocytes % (A) 29 %; MCH 29.5 pg (25.0-35.0); MCHC 32.4 g/dL (31.0-37.0); MCV 91.2 fL (80.0-100.0); Mean Platelet Volume 7.1; Monocytes # (A) 0.5 k/uL (0-1.0); Monocytes % (A) 7 %; Neutrophils # (A) 4.5 k/uL (1.3-7.7); Neutrophils % (A) 60 %; Platelet Count 321 k/uL (150-450); RBC 4.71 m/uL (3.80-5.40); RDW 12.3 % (11.5-15.5); WBC 7.5 k/uL (3.8-10.6)
[2023-10-19 23:50] LABS: Glucose,Whole Blood 98 mg/dL (70-110)
[2023-10-20 02:11] VITALS: BP 117/76; PULSE 90; RESP 18
== END 2023-10-20 00:20 | disposition home or self-care (01) ==
LOC: EC 20:37
DX: H53.149 Visual discomfort, unspecified (principal); H53.8 Other visual disturbances; R11.0 Nausea; R09.81 Nasal congestion; R07.9 Chest pain, unspecified; T43.595A Adverse effect of other antipsychotics and neuroleptics, initial encounter; Z11.52 Encounter for screening for COVID-19
CPT/HCPCS: 36415; 71046; 80048; 85025; 87636; 93005; 99284

== ENCOUNTER 2023-10-25 11:50 | Inpatient (IN) | payer MEDICAID, OTHER ==
--- NOTE | 2023-10-25 12:38 | ED ---
General Adult HPI - General Chief complaint: Psychiatric Symptoms Stated complaint: Mental health eval Time Seen by Provider: 10/25/23 12:02 Source: patient, RN notes reviewed, old records reviewed Mode of arrival: ambulatory - History of Present Illness Initial comments: 23-year-old female presenting for psychiatric evaluation. Patient is not currently on any medication. She states she has racing thoughts and is unable to sleep. She is also having hallucination. Patient is accompanied by her mother. No suicidal or homicidal ideation. - Related Data Previous Rx's Medication Instructions Recorded DULoxetine HCL [Cymbalta] 60 mg PO DAILY 30 Days #30 cap 08/22/23 Fluticasone Nasal [place] [Flonase 2 spray EA NOSTRIL DAILY #0 ml 08/22/23 Nasal [place]] Ibuprofen [Motrin] 600 mg PO Q6HR PRN tab 08/22/23 Ziprasidone [Geodon] 20 mg PO BID 30 Days #60 cap 08/22/23 Allergies Allergy/AdvReac Type Severity Reaction Status Date / Time No Known Allergies Allergy Verified 10/19/23 20:57 Review of Systems ROS Statement: Those systems with pertinent positive or pertinent negative responses have been documented in the HPI. ROS Other: All systems not noted in ROS Statement are negative. 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 History of Any Multi-Drug Resistant Organisms: None Reported Past Surgical History: No Surgical Hx Reported, EPS Additional Past Surgical History / Comment(s): hx of suicidal thoughts, none recent Past Anesthesia/Blood Transfusion Reactions: No Reported Reaction Past Psychological History: PTSD Smoking Status: Never smoker Past Alcohol Use History: None Reported Past Drug Use History: None Reported General Exam General appearance: alert, in no apparent distress Head exam: Present: atraumatic, normocephalic Eye exam: Present: normal appearance, PERRL Respiratory exam: Present: normal lung sounds bilaterally. Absent: respiratory distress, wheezes Cardiovascular Exam: Present: regular rate, normal rhythm GI/Abdominal exam: Present: soft. Absent: distended, tenderness Extremities exam: Present: normal inspection, normal capillary refill Neurological exam: Present: alert, oriented X3, CN II-XII intact. Absent: motor sensory deficit Psychiatric exam: Present: flat affect, other (Patient standing in the room, paranoid, racing thoughts) Skin exam: Present: warm, dry, intact Course Vital Signs 10/25/23 11:51 Temperature 98 F Pulse Rate 89 Respiratory 18 Rate Blood Pressure 121/81 O2 Sat by Pulse 97 Oximetry Medical Decision Making - Medical Decision Making Was pt. sent in by a medical professional or institution ([facility], RECORDINGS LIBRARIAN, urgent care, hospital, or long-term...) When possible be specific @ -No Did you speak to anyone other than the patient for history (EMS, parent, family, police, friend...)? What history was obtained from this source @ -No Did you review nursing and triage notes (agree or disagree)? Why? @ -I reviewed and agree with nursing and triage notes Were old charts reviewed (outside hosp., previous admission, EMS record, old EKG, old radiological studies, urgent care reports/EKG's, long-term records)? Report findings @ -No old charts were reviewed Differential Mental Health Depression, anxiety, bipolar, psychosis, schizophrenia, borderline personality, situational depression, adjustment disorder, behavioral disorder, brain tumor, malingering, substance abuse, encephalopathy, medication reaction, dementia, hypothyroidism, degenerative neurologic disorder, lupus.... This is not meant to be all-inclusive list EKG interpreted by me (3pts min.). @ -As above X-rays interpreted by me (1pt min.). @ -None done CT interpreted by me (1pt min.). @ -None done U/S interpreted by me (1pt. min.). @ -None done What testing was considered but not performed or refused? (CT, X-rays, U/S, labs)? Why? @ -None What meds were considered but not given or refused? Why? @ -None Did you discuss the management of the patient with other professionals (professionals i.e. [facility], RECORDINGS LIBRARIAN, lab, RT, psych nurse, delinquency prevention social worker, senior instructional designer, teacher, medical officer, case work aide)? Give summary @ -No Was smoking cessation discussed for >3mins.? @ -No Was critical care preformed (if so, how long)? @ -No Were there social determinants of health that impacted care today? How? (Homelessness, low income, unemployed, alcoholism, drug addiction, transportation, low edu. Level, literacy, decrease access to med. care, shelter, rehab)? @ -No Was there de-escalation of care discussed even if they declined (Discuss DNR or withdrawal of care, Hospice)? DNR status @ -No What co-morbidities impacted this encounter? (DM, HTN, Smoking, COPD, CAD, Cancer, CVA, ARF, Chemo, Hep., AIDS, mental health diagnosis, sleep apnea, morbid obesity)? @ -None Was patient admitted / discharged? Hospital course, mention meds given and route, prescriptions, significant lab abnormalities, going to OR and other pertinent info. @Cleared for EPS awaiting disposition at 1230 Patient evaluated by EPS and will be admitted for further psychiatric care Undiagnosed new problem with uncertain prognosis? @ -No Drug Therapy requiring intensive monitoring for toxicity (Heparin, Nitro, Insulin, Cardizem)? @ -No Were any procedures done? @ -No Diagnosis/symptom? @Acute psychosis Acute, or Chronic, or Acute on Chronic? @ -Acute Uncomplicated (without systemic symptoms) or Complicated (systemic symptoms)? @ -Default Side effects of treatment? @ -No Exacerbation, Progression, or Severe Exacerbation? @ -No Poses a threat to life or bodily function? How? (Chest pain, [place], [place], pneumonia, PE, COPD, DKA, ARF, appy, cholecystitis, CVA, Diverticulitis, Homicidal, Suicidal, threat to staff... and all critical care pts) @ -No Disposition Clinical Impression: Acute psychosis Disposition: ADMITTED IP TO THIS HOSP Condition: Stable Is patient prescribed a controlled substance at d/c from ED?: No Referrals: None,Stated [Primary Care Provider] - 1-2 days Time of Disposition: 13:49
[2023-10-25] MEDS ORDERED: MAG HYDROX/AL HYDROX/SIMETH 355 ML BOTTLE PO PRN (15:02)
[2023-10-25] MEDS ORDERED: ACETAMINOPHEN TAB 325 MG TAB PO PRN (15:02)
[2023-10-25] MEDS ORDERED: MAGNESIUM HYDROXIDE 2,400 MG/30 ML CUP PO PRN (15:02)
[2023-10-25] MEDS ORDERED: IBUPROFEN 600 MG TAB PO PRN (15:02)
--- NOTE | 2023-10-25 18:49 | P.PN ---
Progress Note - Text Progress Note Date: 10/25/23 I did attempt to see this patient today, however, nursing informed me that upon informing the patient that I was there to evaluate the patient, patient refused to be seen by medical services at this time.
[2023-10-25 19:54] LABS: Appearance,Urine Cloudy (Clear); Bacteria,Urine Rare /hpf; Bilirubin,Urine Negative (Negative); Blood,Urine Negative (Negative); Calcium Oxalate Crystals,Urine Occasional /hpf; Color,Urine Light Yellow; Glucose,Urine (UA) Negative (Negative); Ketones,Urine Negative (Negative); Leukocyte Esterase,Urine Negative (Negative); Mucus,Urine Rare /hpf; Nitrite,Urine Negative (Negative); PH, Urine 5.5 (5.0-8.0); Protein,Urine Negative (Negative); Specific Gravity,Urine 1.026 (1.001-1.035); Squamous Epithelial Cell,Urine 12 /hpf (0-4); Urobilinogen,Urine <2.0 mg/dL (<2.0); WBC,Urine 8 /hpf (0-5)
[2023-10-25 20:03] LABS: Amphetamine Screen,Urine Not Detected (NotDetected); Barbiturate Screen,Urine Not Detected (NotDetected); Benzodiazepines Screen,Urine Not Detected (NotDetected); Cocaine Screen,Urine Not Detected (NotDetected); Methadone Screen, Urine Not Detected (NotDetected); Opiate Screen,Urine Not Detected (NotDetected); Oxycodone Screen, Urine Not Detected (NotDetected); Phencyclidine Screen,Urine Not Detected (NotDetected); Tricyclic Antidepressant,Urine Not Detected (NotDetected); Urn Cannabinoid Scrn Not Detected (NotDetected)
[2023-10-26] MEDS: LORazepam 1 MG TAB PO PRN (02:20)
[2023-10-26] MEDS: haloperidoL 5 MG TAB PO PRN (02:20)
[2023-10-26 07:25] LABS: Basophils # (A) 0.1 k/uL (0-0.2); Basophils % (A) 1 %; Eosinophils # (A) 0.2 k/uL (0-0.7); Eosinophils % (A) 3 %; HCT 40.5 % (34.0-46.0); HGB 13.1 gm/dL (11.4-16.0); Lymphocytes # (A) 1.9 k/uL (1.0-4.8); Lymphocytes % (A) 28 %; MCH 29.9 pg (25.0-35.0); MCHC 32.3 g/dL (31.0-37.0); MCV 92.4 fL (80.0-100.0); Mean Platelet Volume 6.9; Monocytes # (A) 0.4 k/uL (0-1.0); Monocytes % (A) 7 %; Neutrophils # (A) 3.9 k/uL (1.3-7.7); Neutrophils % (A) 60 %; Platelet Count 328 k/uL (150-450); RBC 4.38 m/uL (3.80-5.40); RDW 12.1 % (11.5-15.5); WBC 6.6 k/uL (3.8-10.6)
[2023-10-26 07:41] LABS: ALT 21 U/L (4-34); AST 38 U/L (14-36); African American GFR (CKD) >90 (>60 ml/min/1.73 sqM); Albumin 3.8 g/dL (3.5-5.0); Alkaline Phosphatase 60 U/L (38-126); Anion Gap 4 mmol/L; Bilirubin, Delta 0.3 mg/dL (0.0-0.2); Bilirubin,Unconjugated 0.6 mg/dL (0.0-1.1); Blood Urea Nitrogen 12 mg/dL (7-17); Calcium 9.4 mg/dL (8.4-10.2); Carbon Dioxide 28 mmol/L (22-30); Chloride 106 mmol/L (98-107); Glucose 80 mg/dL (74-99); Non-African American GFR(CKD) >90 (>60 ml/min/1.73 sqM); Potassium 4.6 mmol/L (3.5-5.1); Sodium 138 mmol/L (137-145); Total Bilirubin 0.9 mg/dL (0.2-1.3); Total Protein 6.3 g/dL (6.3-8.2)
[2023-10-26 13:29] VITALS: BMI 17.1
--- NOTE | 2023-10-26 14:22 | P.HP ---
Psychiatric H&P - . H&P Date: 10/26/23 History & Physical: IDENTIFYING DATA: Patient is a 23 year old female with history of Charcot-Monalisa Tooth Disease. HPI: Patient presented to the hospital on 10/25/23 and per ER note, "Patient is not currently on any medication. She states she has racing thoughts and is unable to sleep. She is also having hallucination. Patient is accompanied by her mother.". Per EPS note from 10/25/23, "Pt standing in the ED room pacing the entire assessment. Pts mother Tiffany in in the room with the pt. Pt agreeable to have mother present during the assessment. Pt alert and oriented able to state name, address and phone number and aware she is at [facility]. Pt reports she sees a virtual therapist who advised her 2 days ago to stop taking Geodon due to racing thoughts, light sensitivity and not being able to concentrate. Pt reports taking no other medications. Reports she has not slept in 2 days and has very high anxiety. Pt denies SI or HI. Reports hallucination this morning of being at a construction site. Pt feels she needs admission to the hospital for medications. Per Pts mother Tiffany, the pt needs admission and is concerned since pt has had suicidal thoughts in August of 2023. The mother states pt has been pacing for one week and is very concerned about safety due to decompensation, impulsivity, past suicidal thoughts and concern over keeping pt safe. 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 [address] called guardian p [phone] who advised they are guardians of pt. Jakob reports pt has been struggling and he is agreeable if pt is admitted to the [facility]." On my assessment, patient reports feeling restless, anxious, racing thoughts. On the morning of admission she was having auditory hallucinations of being at a construction site and there were two other people in her room doing construction. 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 Patient denies any suicidal or homicidal ideation, intent or plan. At this time patient denies any auditory or visual hallucinations. She denies paranoid ideations currently. She reports poor sleep last night, was awake at 2am pacing in the hallways, very anxious. She was given Haldol 5 mg po x 1 and Ativan 1 mg po x 1 and was able to return to sleep after that. She reports difficulty falling asleep and staying asleep at home because she "can't sit still". She stopped the Geodon 20 mg BID two days before presenting to the ER due to akathisia, double vision and light sensativity. The double vision and light sensativity have resolved since stopping the Geodon, however she still feels anxious and restless, feels "very anxious like a live wire" making it difficult to sleep and had several breakdowns. She reports she also stopped the Cymbalta a week after her last hospital discharge in 08/2023 due to insurance problems and not being able to afford the co-pay. Patient denies any flight of ideas, racing thoughts, and increased in goal directed behavior. Patient denies alcohol, drug or tobacco use. PAST PSYCHIATRIC HISTORY: Patient states that she is diagnosed with depression, PTSD, autism, psychosis, schizoaffective disorder-depressive type. Psychiatric medications: Invega, Risperdal, Geodon, Prestiq 100 mg daily (almost a year), Intuniv (?) (almost a year), Outpatient psychiatrist: [facility] (Yess[facility] ROBB); [facility] no longer accepts her insurance so she needs to find another provider; Daniel for therapy at [facility], EMDR Previous psychiatric hospitalizations: [facility] 08/2023 for psychosis and suicide attempt; [facility] in January 2020 for depression, suicide attempt (threw self down the stairs) Suicide attempts in the past: More than 5 times by throwing self down the stairs in 2019 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 SOCIAL HISTORY: Patient was born and raised in [place], [place]. Parents when she was 5 yo. Has a maternal half-brother and paternal step-brother. Not close with father. Lives with mother. Unemployed, trying to find another job. MENTAL STATUS EXAM: General Appearance: Patient appears to be stated age, tall slender female, acne, dressed in bright orange sweatshirt and black pants. Fair hygiene and grooming. Behavior: Patient is seated without any agitated behavior. Speech: Patient's speech is fluent and non-pressured. Mood/Affect: Patient reports their mood is "very anxious", affect is congruent and constricted. Suicidality/Homicidality: Patient denies having any homicidal ideation intent or plan. Denies any suicidal ideation, intent or plan. Perceptions: Patient denies any visual hallucinations and denies any auditory hallucinations now, but have AVH in the morning of admission.. Though content/process: There is no evidence of any delusional thought content and thought process is linear and goal-directed. Memory and concentration: AOX3, grossly intact for the purposes of this session. Can spell "WORLD" backwards Judgment and insight: fair STRENGTHS/WEAKNESSES: Strength is that patient is resilient. Weakness is that patient problems with insurance coverage. INTELLECT: Average IMPRESSIONS: Schizoaffective disorder, depressed type (provisional) Autism spectrum disorder PTSD PLAN: -Patient is admitted under voluntary status to MHU for stabilization of psychiatric symptoms and safety. Patient has signed adult voluntary form and medication consent and is placed in patient's chart. -Medications: Start Prestiq 50 mg daily in the morning for depression/anxiety. Start Seroquel 50 mg QHS for augmentation/psychosis/sleep. -Ativan and Haldol PRN for agitation/aggression -Patient was informed of the risks, benefits and side effects of the medication and patient verbally consented to taking the medications. Patient signed med consent form and was placed in chart. -Internal Medicine consult to perform medical evaluation and physical. -NRT - not needed - on board for discharge planning. Encourage patient to participate in groups to work on coping skills. Allergies Allergy/AdvReac Type Severity Reaction Status Date / Time No Known Allergies Allergy Verified 10/25/23 15:11 Vital Signs Temp 98.1 F 10/26/23 06:24 Pulse 92 10/26/23 06:24 Resp 18 10/26/23 06:24 BP 118/61 10/26/23 06:24 Pulse Ox 99 10/26/23 06:24 FiO2 Intake & Output 10/25/23 10/26/23 10/26/23 18:59 06:59 18:59 Weight 57.198 kg 57.198 kg Laboratory Last Values WBC 6.6 k/uL (3.8-10.6) 10/26/23 06:55 RBC 4.38 m/uL (3.80-5.40) 10/26/23 06:55 Hgb 13.1 gm/dL (11.4-16.0) 10/26/23 06:55 Hct 40.5 % (34.0-46.0) 10/26/23 06:55 MCV 92.4 fL (80.0-100.0) 10/26/23 06:55 MCH 29.9 pg (25.0-35.0) 10/26/23 06:55 MCHC 32.3 g/dL (31.0-37.0) 10/26/23 06:55 RDW 12.1 % (11.5-15.5) 10/26/23 06:55 Plt Count 328 k/uL (150-450) 10/26/23 06:55 MPV 6.9 10/26/23 06:55 Neutrophils % 60 % 10/26/23 06:55 Lymphocytes % 28 % 10/26/23 06:55 Monocytes % 7 % 10/26/23 06:55 Eosinophils % 3 % 10/26/23 06:55 Basophils % 1 % 10/26/23 06:55 Neutrophils # 3.9 k/uL (1.3-7.7) 10/26/23 06:55 Lymphocytes # 1.9 k/uL (1.0-4.8) 10/26/23 06:55 Monocytes # 0.4 k/uL (0-1.0) 10/26/23 06:55 Eosinophils # 0.2 k/uL (0-0.7) 10/26/23 06:55 Basophils # 0.1 k/uL (0-0.2) 10/26/23 06:55 Sodium 138 mmol/L (137-145) 10/26/23 06:55 Potassium 4.6 mmol/L (3.5-5.1) 10/26/23 06:55 Chloride 106 mmol/L (98-107) 10/26/23 06:55 Carbon Dioxide 28 mmol/L (22-30) 10/26/23 06:55 Anion Gap 4 mmol/L 10/26/23 06:55 BUN 12 mg/dL (7-17) 10/26/23 06:55 Creatinine 0.63 mg/dL (0.52-1.04) 10/26/23 06:55 Est GFR (CKD-EPI)AfAm >90 (>60 ml/min/1.73 sqM) 10/26/23 06:55 Est GFR (CKD-EPI)NonAf >90 (>60 ml/min/1.73 sqM) 10/26/23 06:55 Glucose 80 mg/dL (74-99) 10/26/23 06:55 Calcium 9.4 mg/dL (8.4-10.2) 10/26/23 06:55 Total Bilirubin 0.9 mg/dL (0.2-1.3) 10/26/23 06:55 Conjugated Bilirubin 0.0 mg/dL (0.0-0.3) 10/26/23 06:55 Unconjugated Bilirubin 0.6 mg/dL (0.0-1.1) 10/26/23 06:55 Delta Bilirubin 0.3 mg/dL (0.0-0.2) H 10/26/23 06:55 AST 38 U/L (14-36) H 10/26/23 06:55 ALT 21 U/L (4-34) 10/26/23 06:55 Alkaline Phosphatase 60 U/L (38-126) 10/26/23 06:55 Total Protein 6.3 g/dL (6.3-8.2) 10/26/23 06:55 Albumin 3.8 g/dL (3.5-5.0) 10/26/23 06:55 TSH 3.710 mIU/L (0.465-4.680) 10/26/23 06:55 Urine Color Light Yellow 10/25/23 19:43 Urine Appearance Cloudy (Clear) H 10/25/23 19:43 Urine pH 5.5 (5.0-8.0) 10/25/23 19:43 Ur Specific [place] 1.026 (1.001-1.035) 10/25/23 19:43 Urine Protein Negative (Negative) 10/25/23 19:43 Urine Glucose (UA) Negative (Negative) 10/25/23 19:43 Urine Ketones Negative (Negative) 10/25/23 19:43 Urine Blood Negative (Negative) 10/25/23 19:43 Urine Nitrite Negative (Negative) 10/25/23 19:43 Urine Bilirubin Negative (Negative) 10/25/23 19:43 Urine Urobilinogen <2.0 mg/dL (<2.0) 10/25/23 19:43 Ur Leukocyte Esterase Negative (Negative) 10/25/23 19:43 Urine WBC 8 /hpf (0-5) H 10/25/23 19:43 Ur Squamous Epith Cells 12 /hpf (0-4) H 10/25/23 19:43 Calcium Oxalate Crystal Occasional /hpf (None) H 10/25/23 19:43 Urine Bacteria Rare /hpf (None) H 10/25/23 19:43 Urine Mucus Rare /hpf (None) H 10/25/23 19:43 Urine HCG, Qual Not Detected (Not Detectd) 10/25/23 19:43 Urine Opiates Screen Not Detected (NotDetected) 10/25/23 19:35 Ur Oxycodone Screen Not Detected (NotDetected) 10/25/23 19:35 Urine Methadone Screen Not Detected (NotDetected) 10/25/23 19:35 Ur Barbiturates Screen Not Detected (NotDetected) 10/25/23 19:35 U Tricyclic Antidepress Not Detected (NotDetected) 10/25/23 19:35 Ur Phencyclidine Scrn Not Detected (NotDetected) 10/25/23 19:35 Ur Amphetamines Screen Not Detected (NotDetected) 10/25/23 19:35 U Methamphetamines Scrn Not Detected (NotDetected) 10/25/23 19:35 U Benzodiazepines Scrn Not Detected (NotDetected) 10/25/23 19:35 Urine Cocaine Screen Not Detected (NotDetected) 10/25/23 19:35 U Marijuana (THC) Screen Not Detected (NotDetected) 10/25/23 19:35 SARS-CoV-2 (PCR) Not Detected (Not Detectd) 10/25/23 13:55 10/26/23 13:46 10/26/23 13:51
[2023-10-26] MEDS: FLUTICASONE 50MCG/SPRAY NASAL 16GM EA NOSTRIL SCH (15:07)
[2023-10-26] MEDS: DESVENLAFAXINE SUCCINATE 50 MG TAB.ER.24H PO SCH (15:07)
[2023-10-26 16:40] LABS: Chol/HDL Ratio 2.11 Ratio; LDL Cholesterol,Calculated 61.4 mg/dL (0.0-131.0); VLDL Calculation 8.66 mg/dL (5.00-40.00)
[2023-10-26] MEDS: QUEtiapine 50 MG TAB PO SCH (20:13)
--- NOTE | 2023-10-27 11:17 | P.PN ---
Progress Note - Text Progress Note Date: 10/27/23 Interval History: Patient was seen wandering the hallways and was directable and agreeable to adriana khan with senior technical writer in the office. Patient states that she is "amped up" from anxiety, and that she cannot calm her brain down. She states that she slept well last night, but for the past few days, she has not gotten much sleep. She states that the Geodon was not helping her, and giving her alot of side effects, so she stopped taking it. She claims to have a fair appetite, and that she is going to groups. At this time patient denies any suicidal or homicidal ideations, intent or plan. Patient denies any auditory, visual hallucinations and denies any paranoia or delusions. Patient denies any side effects from the medications and has been compliant with meds. MENTAL STATUS EXAM: General Appearance: Patient appears to be stated age, tall slender female, acne, dressed in bright orange sweatshirt and black pants. Fair hygiene and grooming. Behavior: Patient is seated without any agitated behavior. Speech: Patient's speech is fluent and non-pressured. Mood/Affect: Patient reports their mood is "very anxious", affect is congruent and constricted. Suicidality/Homicidality: Patient denies having any homicidal ideation intent or plan. Denies any suicidal ideation, intent or plan. Perceptions: Patient denies any visual hallucinations and denies any auditory hallucinations Though content/process: There is no evidence of any delusional thought content and thought process is linear and goal-directed. focused on her sx. Memory and concentration: AOX3, grossly intact for the purposes of this session Judgment and insight: fair IMPRESSIONS: Schizoaffective disorder, depressed type (provisional) Autism spectrum disorder PTSD PLAN: -Patient is admitted under voluntary status to MHU for stabilization of psychiatric symptoms and safety. Patient has signed adult voluntary form and [facility] consent and is placed in patient's chart. -Medications: Prestiq 50 mg daily in the morning for depression/anxiety.Seroquel 50 mg QHS for augmentation/psychosis/sleep. add Buspar 10mg bid for anxiety. add seroquel 25mg daily for mood stabilization/anxiety. -NRT - not needed -SW on board for discharge planning. Encourage patient to participate in groups to work on coping skills.
[2023-10-27] MEDS: QUEtiapine 25 MG TAB PO SCH (12:43)
[2023-10-27] MEDS: busPIRone HCl 10 MG TAB PO SCH (12:43)
--- NOTE | 2023-10-28 11:01 | P.PN ---
Progress Note - Text Progress Note Date: 10/28/23 Interval History: Patient was seen wandering the hallways and was directable and agreeable to sp erin with press writer in the office. Patient states that she her anxiety is improving mildly, and that she feels "amped up" with energy. She states that she slept well last night. Patient states that she is "a live wire, and it is hard to focus and be calm" Upper [employer]aper spoke with patient about changing her medication regimen, patient agreeable. She claims to have a fair appetite, and that she is going to groups. At this time patient denies any suicidal or homicidal ideations, intent or plan. Patient denies any auditory, visual hallucinations and denies any paranoia or delusions. Patient denies any side effects from the medications and has been compliant with meds. MENTAL STATUS EXAM: General Appearance: Patient appears to be stated age, tall slender female, acne, dressed in bright orange sweatshirt and black pants. Fair hygiene and grooming. Behavior: Patient is seated without any agitated behavior. Speech: Patient's speech is fluent and non-pressured. Mood/Affect: Patient reports their mood is "very anxious", affect is congruent and constricted. Suicidality/Homicidality: Patient denies having any homicidal ideation intent or plan. Denies any suicidal ideation, intent or plan. Perceptions: Patient denies any visual hallucinations and denies any auditory hallucinations Though content/process: There is no evidence of any delusional thought content and thought process is linear and goal-directed. focused on her sx. Memory and concentration: AOX3, grossly intact for the purposes of this session Judgment and insight: fair IMPRESSIONS: Schizoaffective disorder, depressed type (provisional) Autism spectrum disorder PTSD PLAN: -Patient is admitted under voluntary status to MHU for stabilization of psychiatric symptoms and safety. Patient has signed adult voluntary form and [facility] consent and is placed in patient's chart. -Medications: d/c Prestiq, add Zoloft 50mg daily for depression/anxiety. Seroquel 50 mg QHS for augmentation/psychosis/sleep. increase Buspar 20mg bid for anxiety. seroquel 25mg daily for mood stabilization/anxiety. -NRT - not needed -SW on board for discharge planning. Encourage patient to participate in groups to work on coping skills.
[2023-10-28] MEDS: busPIRone HCl 10 MG TAB PO SCH (20:29)
[2023-10-29] MEDS: SERTRALINE 50 MG TAB PO SCH (08:23)
--- NOTE | 2023-10-29 11:46 | P.PN ---
Progress Note - Text Progress Note Date: 10/29/23 Interval History: Patient was seen wandering the hallways and was directable and agreeable to adriana khan with web content writer in the office. Patient states that her anxiety and mood are a lot better today. She is no longer feeling "amped up" and appears more calm today. She has been going to groups and participating as much as she can. She appears to be more future oriented today. Appetite is improving. Patient states that she is sleeping well at night time. At this time patient denies any suicidal or homicidal ideations, intent or plan. Patient denies any auditory, visual hallucinations and denies any paranoia or delusions. Patient denies any side effects from the medications and has been compliant with meds. MENTAL STATUS EXAM: General Appearance: Patient appears to be stated age, tall slender female, acne, dressed in bright orange sweatshirt and black pants. Fair hygiene and grooming. Behavior: Patient is seated without any agitated behavior. Proving mildly Speech: Patient's speech is fluent and non-pressured. Mood/Affect: Patient reports their mood is much better today, affect is co ngruent and constricted. Proving mildly Suicidality/Homicidality: Patient denies having any homicidal ideation intent or plan. Denies any suicidal ideation, intent or plan. Perceptions: Patient denies any visual hallucinations and denies any auditory hallucinations Though content/process: There is no evidence of any delusional thought content and thought process is linear and goal-directed. Improving mildly. Memory and concentration: AOX3, grossly intact for the purposes of this session Judgment and insight: fair IMPRESSIONS: Schizoaffective disorder, depressed type (provisional) Autism spectrum disorder PTSD PLAN: -Patient is admitted under voluntary status to MHU for stabilization of psychiatric symptoms and safety. Patient has signed adult voluntary form and medication consent and is placed in patient's chart. -Medications: Zoloft 50mg daily for depression/anxiety. Seroquel 50 mg QHS for augmentation/psychosis/sleep. Buspar 20mg bid for anxiety. seroquel 25mg daily for mood stabilization/anxiety. -NRT - not needed -SW on board for discharge planning. Encourage patient to participate in groups to work on coping skills. Likely discharge tomorrow, back home to her mother.
[2023-10-30 07:19] VITALS: BP 96/50; PULSE 87; RESP 14; TEMP 98
--- NOTE | 2023-10-30 10:18 | P.DS ---
Providers Date of admission: 10/25/23 14:46 Expected date of discharge: 10/30/23 Attending physician: Orlin Francis MD Consults: 10/25/23 15:02 Consult Physician Routine Consulting Provider: Matt Ward Consult Reason/Comments: history and physical Do you want consulting provider notified?: Yes Primary care physician: Stated None - Discharge Diagnosis(es) (1) Schizoaffective disorder, depressive type Current Visit: No Status: Acute Priority: High (2) Autism spectrum disorder Current Visit: No Status: Acute Priority: Medium (3) PTSD (post-traumatic stress disorder) Current Visit: No Status: Acute Priority: Medium Hospital Course: Admission HPI: Admission note was completed by Dr Ahmadi "[ Patient presented to the hospital on 10/25/23 and per ER note, "Patient is not currently on any medication. She states she has racing thoughts and is unable to sleep. She is also having hallucination. Patient is accompanied by her mother.". Per EPS note from 10/25/23, "Pt standing in the ED room pacing the entire assessment. Pts mother Tiffany in in the room with the pt. Pt agreeable to have mother present during the assessment. Pt alert and oriented able to state name, address and phone number and aware she is at [facility]. Pt reports she sees a virtual therapist who advised her 2 days ago to stop taking Geodon due to racing thoughts, light sensitivity and not being able to concentrate. Pt reports taking no other medications. Reports she has not slept i n 2 days and has very high anxiety. Pt denies SI or HI. Reports hallucination this morning of being at a construction site. Pt feels she needs admission to the hospital for medications. Per Pts mother Tiffany, the pt needs admission and is concerned since pt has had suicidal thoughts in August of 2023. The mother states pt has been pacing for one week and is very concerned about safety due to decompensation, impulsivity, past suicidal thoughts and concern over keeping pt safe. 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 [id number] called guardian justino [phone] who advised they are guardians of pt. Jakob reports pt has been struggling and he is agreeable if pt is admitted to the [facility]." On my assessment, patient reports feeling restless, anxious, racing thoughts. On the morning of admission she was having auditory hallucinations of being at a construction site and there were two other people in her room doing construction. 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 Patient denies any suicidal or homicidal ideation, intent or plan. At this time patient denies any auditory or visual hallucinations. She denies paranoid ideations currently. She reports poor sleep last night, was awake at 2am pacing in the hallways, very anxious. She was given Haldol 5 mg po x 1 and Ativan 1 mg po x 1 and was able to return to sleep after that. She reports difficulty falling asleep and staying asleep at home because she "can't sit still". She stopped the Geodon 20 mg BID two days before presenting to the ER due to akathisia, double vision and light sensativity. The double vision and light sensativity have resolved since stopping the Geodon, however she still feels anxious and restless, feels "very anxious like a live wire" making it difficult to sleep and had several breakdowns. She reports she also stopped the Cymbalta a week after her last hospital discharge in 08/2023 due to insurance problems and not being able to afford the co-pay. Patient denies any flight of ideas, racing thoughts, and increased in goal directed behavior. Patient denies alcohol, drug or tobacco use." Hospital course: Upon admission to the unit patient was directable and agreeable to commence treatment and signed adult voluntary form. Patient got along well with other patients on the unit and followed unit protocol. Patient was compliant with the medications and denied any side effects throughout hospital course. Patient was started on Zoloft 50 mg daily for mood/anxiety, Seroquel increased to dose of 50 mg daily + 75 mg qhs. BuSpar 30 mg twice daily for anxiety, melatonin 10 mg nightly for sleep. Patient spoke of her stressors and engaged in therapy both group and individual. Patient was also seen by medical team for history and physical exam. Throughout the course of the hospitalization patient gradually improved with regards to mood, anxiety, racing thoughts, suicidal thoughts, sleep and returned back to their baseline level of functioning. On the day of discharge patient denied any suicidal or homicidal ideations intent or plan denied any auditory or visual hallucinations. Patient endorsed wanting to live for her health and her family. The patient denied any access to guns or weapons. Patient denied any paranoia and did not endorse any delusions. Patient does not have a significant history of substance abuse and was counseled on abstaining from all substances including alcohol and marijuana. Patient was also counseled on the medications and need for regular compliance and was encouraged to follow-up with their outpatient appointment for mental health and also for primary care. Prior to discharge a family meeting will be arranged by social sciences department chair to answer any questions and ensure safety upon discharge. Mental status exam: General Appearance: Patient appears to be tall, thin, wearing glasses, stated age is alert, pleasant, and cooperative. Patient is in no acute distress and has improved hygiene and grooming Behavior: Patient is calmly seated without any agitated behavior. Speech: Patient's speech is fluent and nonpressured. Mood/Affect: Patient reports their mood is "good", affect is congruent and euthymic. Suicidality/Homicidality: Patient denies having any suicidal or homicidal ideation intent or plan. Perceptions: Patient denies any auditory or visual hallucinations. Though content/process: There is no evidence of any delusional thought content and thought process is linear and goal-directed. More future oriented Memory and concentration: AOX3, grossly intact for the purposes of this session. Can spell "WORLD" backwards correctly. Judgment and insight: improved with guarded prognosis Impression: Schizoaffective disorder, depressed type (provisional) Autism spectrum disorder PTSD Plan: -Continue with discharge today as patient has improved and stabilized psychiatrically and is not currently an imminent threat to herself and/or others. -Continue medications: Zoloft 50 mg daily for mood/anxiety, Seroquel 50 mg daily +75 mg nightly plus melatonin 10 mg nightly for sleep, BuSpar 30 mg twice daily for anxiety. -Patient was counseled on the need for medication compliance and appropriate follow-up at mental health and also primary care for medical issues. Patient verbalized understanding and agreed. -Social work to arrange for and conduct family meeting to ensure safety upon discharge and answer any questions/concerns. Social work also to arrange for patients follow up appointments for psychiatric care along with follow up with primary care provider. -Patient counseled on abstaining from recreational drugs and marijuana and alcohol. Was informed/educated on the adverse effects on their physical and mental health. Patient verbally agreed and understood. -Patient was instructed to return to the hospital or seek immediate medical care if their psychiatric or medical symptoms do worsen or reoccur. Allergies Allergy/AdvReac Type Severity Reaction Status Date / Time No Known Allergies Allergy Verified 10/25/23 15:11 Laboratory Results WBC 6.6 k/uL (3.8-10.6) 10/26/23 06:55 RBC 4.38 m/uL (3.80-5.40) 10/26/23 06:55 Hgb 13.1 gm/dL (11.4-16.0) 10/26/23 06:55 Hct 40.5 % (34.0-46.0) 10/26/23 06:55 MCV 92.4 fL (80.0-100.0) 10/26/23 06:55 MCH 29.9 pg (25.0-35.0) 10/26/23 06:55 MCHC 32.3 g/dL (31.0-37.0) 10/26/23 06:55 RDW 12.1 % (11.5-15.5) 10/26/23 06:55 Plt Count 328 k/uL (150-450) 10/26/23 06:55 MPV 6.9 10/26/23 06:55 Neutrophils % 60 % 10/26/23 06:55 Lymphocytes % 28 % 10/26/23 06:55 Monocytes % 7 % 10/26/23 06:55 Eosinophils % 3 % 10/26/23 06:55 Basophils % 1 % 10/26/23 06:55 Neutrophils # 3.9 k/uL (1.3-7.7) 10/26/23 06:55 Lymphocytes # 1.9 k/uL (1.0-4.8) 10/26/23 06:55 Monocytes # 0.4 k/uL (0-1.0) 10/26/23 06:55 Eosinophils # 0.2 k/uL (0-0.7) 10/26/23 06:55 Basophils # 0.1 k/uL (0-0.2) 10/26/23 06:55 Sodium 138 mmol/L (137-145) 10/26/23 06:55 Potassium 4.6 mmol/L (3.5-5.1) 10/26/23 06:55 Chloride 106 mmol/L (98-107) 10/26/23 06:55 Carbon Dioxide 28 mmol/L (22-30) 10/26/23 06:55 Anion Gap 4 mmol/L 10/26/23 06:55 BUN 12 mg/dL (7-17) 10/26/23 06:55 Creatinine 0.63 mg/dL (0.52-1.04) 10/26/23 06:55 Est GFR (CKD-EPI)AfAm >90 (>60 ml/min/1.73 sqM) 10/26/23 06:55 Est GFR (CKD-EPI)NonAf >90 (>60 ml/min/1.73 sqM) 10/26/23 06:55 Glucose 80 mg/dL (74-99) 10/26/23 06:55 Calcium 9.4 mg/dL (8.4-10.2) 10/26/23 06:55 Total Bilirubin 0.9 mg/dL (0.2-1.3) 10/26/23 06:55 Conjugated Bilirubin 0.0 mg/dL (0.0-0.3) 10/26/23 06:55 Unconjugated Bilirubin 0.6 mg/dL (0.0-1.1) 10/26/23 06:55 Delta Bilirubin 0.3 mg/dL (0.0-0.2) H 10/26/23 06:55 AST 38 U/L (14-36) H 10/26/23 06:55 ALT 21 U/L (4-34) 10/26/23 06:55 Alkaline Phosphatase 60 U/L (38-126) 10/26/23 06:55 Total Protein 6.3 g/dL (6.3-8.2) 10/26/23 06:55 Albumin 3.8 g/dL (3.5-5.0) 10/26/23 06:55 Triglycerides 43.30 mg/dL (0.00-149.00) 10/26/23 06:55 Cholesterol 133.00 mg/dL (0.00-200.00) 10/26/23 06:55 LDL Cholesterol, Calc 61.4 mg/dL (0.0-131.0) 10/26/23 06:55 VLDL Cholesterol, Calc 8.66 mg/dL (5.00-40.00) 10/26/23 06:55 HDL Cholesterol 62.90 mg/dL (40.00-60.00) H 10/26/23 06:55 Cholesterol/HDL Ratio 2.11 Ratio 10/26/23 06:55 TSH 3.710 mIU/L (0.465-4.680) 10/26/23 06:55 Urine Color Light Yellow 10/25/23 19:43 Urine Appearance Cloudy (Clear) H 10/25/23 19:43 Urine pH 5.5 (5.0-8.0) 10/25/23 19:43 Ur Specific [place] 1.026 (1.001-1.035) 10/25/23 19:43 Urine Protein Negative (Negative) 10/25/23 19:43 Urine Glucose (UA) Negative (Negative) 10/25/23 19:43 Urine Ketones Negative (Negative) 10/25/23 19:43 Urine Blood Negative (Negative) 10/25/23 19:43 Urine Nitrite Negative (Negative) 10/25/23 19:43 Urine Bilirubin Negative (Negative) 10/25/23 19:43 Urine Urobilinogen <2.0 mg/dL (<2.0) 10/25/23 19:43 Ur Leukocyte Esterase Negative (Negative) 10/25/23 19:43 Urine WBC 8 /hpf (0-5) H 10/25/23 19:43 Ur Squamous Epith Cells 12 /hpf (0-4) H 10/25/23 19:43 Calcium Oxalate Crystal Occasional /hpf (None) H 10/25/23 19:43 Urine Bacteria Rare /hpf (None) H 10/25/23 19:43 Urine Mucus Rare /hpf (None) H 10/25/23 19:43 Urine HCG, Qual Not Detected (Not Detectd) 10/25/23 19:43 Urine Opiates Screen Not Detected (NotDetected) 10/25/23 19:35 Ur Oxycodone Screen Not Detected (NotDetected) 10/25/23 19:35 Urine Methadone Screen Not Detected (NotDetected) 10/25/23 19:35 Ur Barbiturates Screen Not Detected (NotDetected) 10/25/23 19:35 U Tricyclic Antidepress Not Detected (NotDetected) 10/25/23 19:35 Ur Phencyclidine Scrn Not Detected (NotDetected) 10/25/23 19:35 Ur Amphetamines Screen Not Detected (NotDetected) 10/25/23 19:35 U Methamphetamines Scrn Not Detected (NotDetected) 10/25/23 19:35 U Benzodiazepines Scrn Not Detected (NotDetected) 10/25/23 19:35 Urine Cocaine Screen Not Detected (NotDetected) 10/25/23 19:35 U Marijuana (THC) Screen Not Detected (NotDetected) 10/25/23 19:35 SARS-CoV-2 (PCR) Not Detected (Not Detectd) 10/25/23 13:55 Vital Signs Temp 98 F 10/30/23 06:47 Pulse 87 10/30/23 06:47 Resp 14 10/30/23 06:47 BP 96/50 10/30/23 06:47 Pulse Ox 95 10/28/23 06:55 FiO2 Patient Condition at Discharge: Stable Plan - Discharge Summary Discharge Rx Participant: Yes New Discharge Prescriptions: New Fluticasone Nasal [place] [Flonase Nasal [place]] 2 spray EA NOSTRIL DAILY ml Melatonin 10 mg PO HS 30 Days #30 tab QUEtiapine [SEROquel] 75 mg PO HS 30 Days #90 tab Sertraline [Zoloft] 50 mg PO DAILY 30 Days #30 tab busPIRone HCL [Buspar] 30 mg PO BID 30 Days #60 tablet QUEtiapine [SEROquel] 25 mg PO DAILY 30 Days #30 tab Discharge Medication List Fluticasone Nasal [place] [Flonase Nasal [place]] 2 spray EA NOSTRIL DAILY ml 10/30/23 [Rx] Melatonin 10 mg PO HS 30 Days #30 tab 10/30/23 [Rx] QUEtiapine [SEROquel] 25 mg PO DAILY 30 Days #30 tab 10/30/23 [Rx] QUEtiapine [SEROquel] 75 mg PO HS 30 Days #90 tab 10/30/23 [Rx] Sertraline [Zoloft] 50 mg PO DAILY 30 Days #30 tab 10/30/23 [Rx] busPIRone HCL [Buspar] 30 mg PO BID 30 Days #60 tablet 10/30/23 [Rx] Follow up Appointment(s)/Referral(s): None,Stated [Primary Care Provider] - 1-2 days Activity/Diet/Wound Care/Special Instructions: Avoid the use of street drugs and alcohol. Take all medications as prescribed. When you are in need of refills on your medications, please contact your medical provider and/or outpatient psychiatrist/provider to have this done. Please go to your scheduled outpatient appointment for aftercare treatment. If symptoms return or become worse, call the crisis line at and/or go to the nearest emergency room for evaluation. National Suicide Hotline 988 Discharge Disposition: HOME SELF-CARE
== END 2023-10-30 13:40 | disposition home or self-care (01) | DRG 750 ==
LOC: EC 11:50 → 3MHU 14:46
PROVIDERS: ADMIT Psychiatry & Neurology Psychiatry; ATTEND Psychiatry & Neurology Psychiatry
DX: F25.1 Schizoaffective disorder, depressive type (principal); F31.9 Bipolar disorder, unspecified; R45.851 Suicidal ideations; F43.10 Post-traumatic stress disorder, unspecified; F84.0 Autistic disorder; H53.2 Diplopia; Z63.72 Alcoholism and drug addiction in family; Z76.5 Malingerer [conscious simulation]; Z81.3 Family history of other psychoactive substance abuse and dependence; Z91.51 Personal history of suicidal behavior; Z79.899 Other long term (current) drug therapy
CPT/HCPCS: 80053; 80061; 80306; 81001; 81025; 82075; 82248; 84443; 85025; 87635; 99285

== ENCOUNTER 2024-05-14 23:16 | Inpatient (IN) | payer MEDICAID, OTHER ==
--- NOTE | 2024-05-15 00:08 | ED ---
General Adult HPI - General Chief complaint: Psychiatric Symptoms Stated complaint: Mental health-petition Time Seen by Provider: 05/14/24 23:20 Source: patient, RN notes reviewed, old records reviewed Mode of arrival: ambulatory - History of Present Illness Initial comments: Patient is a 23-year-old female who presents emergency department for psychiatric evaluation. Does have a psychiatric history. Patient was petitioned by her mother as she states in the petition "extreme highs and lowsangervolatileslamming objects in roomnot taking medications." Patient does endorse having some mood swings lately and she has not been on her medications due to issues with insurance because of stressors in her getting terminated at her job. Does states she was slamming a door at home but no one was injured by the door. Understands that she is petitioning to be evaluation by psychiatry. Is cooperative at this time. Would like to be tested for possible cold-like sym ptoms with COVID and flu swab. Nasal congestion. Otherwise is cooperative and is in agreement the plan. Denies suicidal or homicidal ideations, attempts, plans. Denies hallucinations. - Related Data Previous Rx's Medication Instructions Recorded Fluticasone Nasal [place] [Flonase 2 spray EA NOSTRIL DAILY ml 10/30/23 Nasal [place]] Melatonin 10 mg PO HS 30 Days #30 tab 10/30/23 QUEtiapine [SEROquel] 25 mg PO DAILY 30 Days #30 tab 10/30/23 QUEtiapine [SEROquel] 75 mg PO HS 30 Days #90 tab 10/30/23 Sertraline [Zoloft] 50 mg PO DAILY 30 Days #30 tab 10/30/23 busPIRone HCL [Buspar] 30 mg PO BID 30 Days #60 tablet 10/30/23 Allergies Allergy/AdvReac Type Severity Reaction Status Date / Time No Known Allergies Allergy Verified 05/14/24 23:22 Review of Systems ROS Statement: Those systems with pertinent positive or pertinent negative responses have been documented in the HPI. Review of Systems: CONST: Denies fever EYES: Denies blurry vision ENT: Endorses nasal congestion C/V: Denies Chest pain RESP: Denies shortness of breath GI: Denies abdominal pain : Denies dysuria SKIN: Denies rash. MSK: Denies joint pain. NEURO: Denies headache ROS Other: All systems not noted in ROS Statement are negative. 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 History of Any Multi-Drug Resistant Organisms: None Reported Past Surgical History: EPS Additional Past Surgical History / Comment(s): hx of suicidal thoughts, none recent Past Anesthesia/Blood Transfusion Reactions: No Reported Reaction Past Psychological History: PTSD Smoking Status: Never smoker Past Alcohol Use History: None Reported Past Drug Use History: None Reported General Exam - General Exam Comments Initial Comments: General: Appears in no acute distress. HEAD: Normal with no signs of head trauma. EYES: EOMI. ENT: Hearing grossly intact. RESPIRATORY: No respiratory distress. Clear breath sounds bilaterally. No hypoxia. C/V: Regular rate and rhythm. ABD: Abdomen is nondistended. EXT: No obvious deformity. SKIN: No rashes or lesions observed on exposed skin. NEURO: Alert and oriented. Course Vital Signs 05/14/24 23:18 Temperature 98.4 F Pulse Rate 85 Respiratory 18 Rate Blood Pressure 143/82 O2 Sat by Pulse 97 Oximetry Medical Decision Making - Medical Decision Making Was pt. sent in by a medical professional or institution (, PA, PRECISION FARMING COORDINATOR, urgent care, hospital, or penitentiary...) When possible be specific @ -No Did you speak to anyone other than the patient for history (EMS, parent, family, police, friend...)? What history was obtained from this source @ -No Did you review nursing and triage notes (agree or disagree)? Why? @ -I reviewed and agree with nursing and triage notes Were old charts reviewed (outside hosp., previous admission, EMS record, old EKG, old radiological studies, urgent care reports/EKG's, penitentiary records)? Report findings @ -Reviewed patient's petition was completed by her mother. Differential Diagnosis (chest pain, altered mental status, abdominal pain women, abdominal pain men, vaginal bleeding, weakness, fever, dyspnea, syncope, headache, dizziness, GI bleed, back pain, seizure, CVA, palpatations, mental health, musculoskeletal)? @ -Differential Mental Health Depression, anxiety, bipolar, psychosis, schizophrenia, borderline personality, situational depression, adjustment disorder, behavioral disorder, brain tumor, malingering, substance abuse, encephalopathy, medication reaction, dementia, hypothyroidism, degenerative neurologic disorder, lupus.... This is not meant to be all-inclusive list EKG interpreted by me (3pts min.). @ -None done X-rays interpreted by me (1pt min.). @ -None done CT interpreted by me (1pt min.). @ -None done U/S interpreted by me (1pt. min.). @ -None done What testing was considered but not performed or refused? (CT, X-rays, U/S, labs)? Why? @ -None What meds were considered but not given or refused? Why? @ -None Did you discuss the management of the patient with other professionals (professionals i.e. , PA, PRECISION FARMING COORDINATOR, lab, RT, psych nurse, manager social services, cooler deliverer, te acher, loan review officer, family caseworker)? Give summary @ -EPS notified of the consult Was smoking cessation discussed for >3mins.? @ -No Was critical care preformed (if so, how long)? @ -No Were there social determinants of health that impacted care today? How? (Homelessness, low income, unemployed, alcoholism, drug addiction, transportation, low edu. Level, literacy, decrease access to med. care, mcc, rehab)? @ -No Was there de-escalation of care discussed even if they declined (Discuss DNR or withdrawal of care, Hospice)? DNR status @ -No What co-morbidities impacted this encounter? (DM, HTN, Smoking, COPD, CAD, Cancer, CVA, ARF, Chemo, Hep., AIDS, mental health diagnosis, sleep apnea, morbid obesity)? @ -Mental health Was patient admitted / discharged? Hospital course, mention meds given and route, prescriptions, significant lab abnormalities, going to OR and other pertinent info. @ -Patient presents to the emergency department petition for mental health evaluation by her mother. She is cooperative at this time. BAT is 0. UDS is pending. We will obtain Cepheid swab at her request. Vital signs within acceptable limits. At this time, patient is medically cleared for evaluation by psychiatry. Disposition pending psychiatric evaluation. EPS evaluated the patient. Determined that she does meet inpatient criteria for psychiatric admission. Clinical certificate completed by myself. COVID swab is negative. Undiagnosed new problem with uncertain prognosis? @ -No Drug Therapy requiring intensive monitoring for toxicity (Heparin, Nitro, Insulin, Cardizem)? @ -No Were any procedures done? @ -No Diagnosis/symptom? @ -Depression, medication noncompliance Acute, or Chronic, or Acute on Chronic? @ -Acute Uncomplicated (without systemic symptoms) or Complicated (systemic symptoms)? @ -Complicated Side effects of treatment? @ -None Exacerbation, Progression, or Severe Exacerbation] @ -No Poses a threat to life or bodily function? @ -Potentially, yes - Lab Data Lab Results 05/15/24 Range/Units 00:20 Influenza Type A (PCR) Not Detected (Not Detectd) Influenza Type B (PCR) Not Detected (Not Detectd) RSV (PCR) Not Detected (Not Detectd) SARS-CoV-2 (PCR) Not Detected (Not Detectd) Disposition Clinical Impression: Depression, Nonadherence to medication Disposition: TRANSFER TO PSYCH HOSP/UNIT Condition: Stable Referrals: None,Stated [Primary Care Provider] - 1-2 days Time of Disposition: 02:10
[2024-05-15] MEDS ORDERED: hydrOXYzine HCL 50 MG/ML 1 ML VIAL IM PRN (03:13)
[2024-05-15] MEDS ORDERED: MAG HYDROX/AL HYDROX/SIMETH 355 ML BOTTLE PO PRN (03:13)
[2024-05-15] MEDS ORDERED: IBUPROFEN 600 MG TAB PO PRN (03:13)
[2024-05-15] MEDS ORDERED: hydrOXYzine HCL 25 MG TAB PO PRN (03:13)
[2024-05-15] MEDS ORDERED: MAGNESIUM HYDROXIDE 2,400 MG/30 ML CUP PO PRN (03:13)
[2024-05-15 03:47] LABS: Amphetamine Screen,Urine Not Detected (NotDetected); Barbiturate Screen,Urine Not Detected (NotDetected); Benzodiazepines Screen,Urine Not Detected (NotDetected); Cocaine Screen,Urine Not Detected (NotDetected); Methadone Screen, Urine Not Detected (NotDetected); Opiate Screen,Urine Not Detected (NotDetected); Oxycodone Screen, Urine Not Detected (NotDetected); Phencyclidine Screen,Urine Not Detected (NotDetected); Tricyclic Antidepressant,Urine Not Detected (NotDetected); Urn Cannabinoid Scrn Not Detected (NotDetected)
[2024-05-15 08:07] LABS: Amorphous Sediment,Urine Occasional /hpf; Appearance,Urine Cloudy (Clear); Bilirubin,Urine Negative (Negative); Blood,Urine Negative (Negative); Color,Urine Colorless; Glucose,Urine (UA) Negative (Negative); Ketones,Urine Negative (Negative); Leukocyte Esterase,Urine Negative (Negative); Mucus,Urine Rare /hpf; Nitrite,Urine Negative (Negative); PH, Urine 6.5 (5.0-8.0); Protein,Urine Negative (Negative); RBC,Urine <1 /hpf (0-5); Specific Gravity,Urine 1.008 (1.001-1.035); Squamous Epithelial Cell,Urine 7 /hpf (0-4); Urobilinogen,Urine <2.0 mg/dL (<2.0); WBC,Urine 1 /hpf (0-5)
[2024-05-15] MEDS ORDERED: BENZOCAINE/MENTHOL LOZENG 1 EACH LOZENGE MUCOUS MEM PRN (08:32)
[2024-05-15] MEDS: NICOTINE 14MG/24HR PATCH TRANSDERM SCH (08:34)
[2024-05-15 08:36] VITALS: RESP 16
[2024-05-15] MEDS ORDERED: SERTRALINE 50 MG TAB PO SCH (10:00)
[2024-05-15] MEDS: SERTRALINE 25 MG TAB PO SCH (10:51)
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
[2024-05-15] MEDS: MELATONIN 5 MG TABLET PO SCH (20:16)
[2024-05-15] MEDS: QUEtiapine 50 MG TAB PO SCH (20:17)
--- NOTE | 2024-05-16 03:22 | P.CONS ---
History of Present Illness - Reason for Consult Consult date: 05/16/24 - History of Present Illness The patient is a 23-year-old female with a PMH of Hqjsugi-Mthzp-Hrijx disease type Ia, who had presented to the emergency room brought in by her mother for mood swings. The patient was admitted to mental health unit where she was seen and evaluated while accompanied by MHU RN. The patient reports that her PTSD was acting up due to her multiple stressors. She reports struggling with periph eral neuropathy and tremors as a result of her CMT. She denied any physical complaints at the time of interview. Denied experiencing chest discomfort, shortness of breath, fever, chills, cough, nausea, vomiting, abdominal pain, diarrhea. Denied alcohol, tobacco, or substance use. Review of systems: Pertinent positives and negatives as discussed in HPI, a complete review of systems was performed and all other systems are negative. Physical examination: General: non toxic, no distress, appears at stated age, normal weight Derm: no unusual rashes/lesions, no unusual ecchymoses, warm, dry Head: atraumatic, normocephalic, symmetric Eyes: EOMI, no lid lag, anicteric sclera ENT: Nose and ears atraumatic, no thrush, no pharyngeal erythema Neck: trachea midline, supple Mouth: no lip lesion, mucus membranes moist Cardiovascular: S1S2 reg, no murmur, no edema Lungs: CTA bilateral, no rhonchi, no rales , no accessory muscle use Abdominal: soft, nontender to palpation, no guarding Ext: no gross muscle atrophy, no contractures, Neuro: No gross focal neuro deficits noted Psych: Alert, oriented, appropriate affect Assessment: Charcot's Monalisa tooth disease, type Ia PTSD with bipolar disorder history Imaging: None performed Data Review: Reviewed with WBC count 6.6, hemoglobin 13.1, platelets 328, sodium 138, BUN 12, creatinine 0.63, urine toxicology and UA unremarkable with respiratory viral panel negative Plan: Patient does not take any medications for CMT Defer management of PTSD and bipolar disorder to primary psychiatry service Thank you for allowing us to participate in the care of this patient. We will follow peripherally. Do not hesitate to contact us with questions. Someone can be reached from the [facility] hospitalist group at all hours of the day at [phone]. 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 History of Any Multi-Drug Resistant Organisms: None Reported Past Surgical History: EPS Additional Past Surgical History / Comment(s): hx of suicidal thoughts, none recent Past Anesthesia/Blood Transfusion Reactions: No Reported Reaction Past Psychological History: PTSD Smoking Status: Never smoker Past Alcohol Use History: None Reported Past Drug Use History: None Reported Medications and Allergies Home Medications Medication Instructions Recorded Confirmed Type Fluticasone Nasal [place] [Flonase 2 spray EA NOSTRIL DAILY ml 10/30/23 Rx Nasal [place]] Melatonin 10 mg PO HS 30 Days #30 tab 10/30/23 Rx QUEtiapine [SEROquel] 25 mg PO DAILY 30 Days #30 tab 10/30/23 Rx QUEtiapine [SEROquel] 75 mg PO HS 30 Days #90 tab 10/30/23 Rx Sertraline [Zoloft] 50 mg PO DAILY 30 Days #30 tab 10/30/23 Rx busPIRone HCL [Buspar] 30 mg PO BID 30 Days #60 tablet 10/30/23 Rx Allergies Allergy/AdvReac Type Severity Reaction Status Date / Time No Known Allergies Allergy Verified 05/15/24 06:35 Physical Exam Vitals: Vital Signs Temp Pulse Resp BP Pulse Ox 05/15/24 08:35 97.8 F 106 H 16 116/58 05/15/24 04:37 98.7 F 75 18 122/80 99 Results Labs: Abnormal Lab Results - Last 24 Hours (Table) 05/15/24 Range/Units 03:15 Urine Appearance Cloudy H (Clear) Ur Squamous Epith Cells 7 H (0-4) /hpf Amorphous Sediment Occasional H (None) /hpf Urine Mucus Rare H (None) /hpf
--- NOTE | 2024-05-16 11:24 | P.PN ---
Progress Note - Text Progress Note Date: 05/16/24 Interval history: Patient was seen bedside and was directable and agreeable to speak with parts data writer. she is somewhat sedated and states that she slept well last night. She says that her mood is "okay ". She currently denies depression. Agreeable with increase in Zoloft. She reports tolerating medication well without any concerns. She endorses good appetite and energy. Denies any other concerns. At this time patient denies any suicidal or homicidal ideations intent or plan. Denies any Auditory or visual hallucinations. Patient denies any side effects from the medications and has been compliant with meds. Mental status exam: General Appearance: Patient appears to be stated age is alert, directable, and cooperative. Behavior: No agitated behavior. Patient is calm and directable Speech: Patient's speech is fluent and nonpressured. Mood/Affect: Mood is improving mildly, affect is congruent and constricted. Suicidality/Homicidality: Patient denies having any suicidal or homicidal ideation intent or plan. Perceptions: Patient denies any auditory or visual hallucinations. Though content/process: There is no evidence of any delusional thought content and thought process is linear and goal-directed. Memory and concentration: AOX3, grossly intact for the purposes of this session Judgment and insight: improving mildly Assessment/Plan: Continue with current diagnosis. Patient continues to meet criteria for inpatient psychiatric admission for symptom stabilization and safety. Increase Zoloft to 50 mg daily for depression. Monitor for medication compliance and for any psychotropic medication side effects. Will continue to monitor ongoing response to treatment. Encouraged participation in milieu.
[2024-05-16 12:24] LABS: Basophils # (A) 0.1 k/uL (0-0.2); Basophils % (A) 1 %; Eosinophils # (A) 0.2 k/uL (0-0.7); Eosinophils % (A) 3 %; HCT 43.8 % (34.0-46.0); HGB 13.9 gm/dL (11.4-16.0); Lymphocytes # (A) 1.5 k/uL (1.0-4.8); Lymphocytes % (A) 27 %; MCH 28.5 pg (25.0-35.0); MCHC 31.8 g/dL (31.0-37.0); MCV 89.4 fL (80.0-100.0); Mean Platelet Volume 6.8; Monocytes # (A) 0.4 k/uL (0-1.0); Monocytes % (A) 6 %; Neutrophils # (A) 3.4 k/uL (1.3-7.7); Neutrophils % (A) 61 %; Platelet Count 332 k/uL (150-450); WBC 5.7 k/uL (3.8-10.6)
[2024-05-16] MEDS: SERTRALINE 25 MG TAB PO ONE (12:26)
[2024-05-16 12:42] LABS: ALT 13 U/L (4-34); AST 18 U/L (14-36); African American GFR (CKD) >90 (>60 ml/min/1.73 sqM); Albumin 4.6 g/dL (3.5-5.0); Alkaline Phosphatase 70 U/L (38-126); Anion Gap 9 mmol/L; Bilirubin, Delta 0.1 mg/dL (0.0-0.2); Bilirubin,Unconjugated 0.7 mg/dL (0.0-1.1); Blood Urea Nitrogen 10 mg/dL (7-17); Carbon Dioxide 25 mmol/L (22-30); Chloride 104 mmol/L (98-107); Glucose 75 mg/dL (74-99); Non-African American GFR(CKD) >90 (>60 ml/min/1.73 sqM); Potassium 4.8 mmol/L (3.5-5.1); Sodium 138 mmol/L (137-145); Total Bilirubin 0.8 mg/dL (0.2-1.3); Total Protein 7.2 g/dL (6.3-8.2)
[2024-05-16 22:52] LABS: Chol/HDL Ratio 2.71 Ratio; LDL Cholesterol,Calculated 78.2 mg/dL (0.0-131.0)
[2024-05-17] MEDS: SERTRALINE 50 MG TAB PO SCH (08:01)
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
[2024-05-18] MEDS: ACETAMINOPHEN TAB 325 MG TAB PO PRN (14:16)
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
[2024-05-18] MEDS: QUEtiapine 25 MG TAB PO SCH (20:20)
--- NOTE | 2024-05-19 15:49 | P.PN ---
Progress Note - Text Progress Note Date: 05/19/24 Dictation was produced using [employer] dictation software. Please excuse any grammatical, word or spelling errors. Interval history: Patient states that she is tired with low energy, mood is "very good". Depression and anxiety are improving, denied any current SI/HI or AVH. Sleep, and appetite are good. Reported that she continue to be upset with her mother since she is causing most of her stress. Reported that she is worried about her uncle and reported that she contacted APS in the past however nobody came to assist him. She states that she is happy she is back on her medications since she stopped taking it for few months and she feels fine overall. She denied any current side effects, denied any muscle stiffness, rigidity, abnormal movement, or drooling. She states that she was able to speak with the strategic planner and reported that she is currently thinking about other option of placement since home seem to be most stress causing place for her. She reported that she is willing to follow-up with [facility] and reported that she used to follow-up with [facility] for PTSD. She has no other concerns at this time. MENTAL STATUS EXAM: General Appearance: Patient appears to be stated age is alert, directable, and attempts to cooperate. Patient appears to have fair hygiene and grooming. Behavior: Patient is seated without any agitated behavior. Speech: Patient's speech is fluent and nonpressured, hyperverbal, however directable. Mood/Affect: Patient reports their mood is "good", affect is congruent and constricted. Suicidality/Homicidality: Patient denies having any homicidal ideation intent or plan. Denies any suicidal ideations intent or plan Perceptions: Patient denies any visual hallucinations and denies any auditory hallucinations Though content/process: There is no evidence of any delusional thought content and thought process is tangential Memory and concentration: AOX3, grossly intact for the purposes of this session. Can spell "WORLD" backwards Judgment and insight: Patient has a limited insight into her current mental illness, judgment, impulse control are fair IMPRESSIONS: - Schizoaffective disorder, depressed type (provisional) - Rule out bipolar disorder, depressed - Autism spectrum disorder - PTSD PLAN: -Patient is admitted under voluntary status to MHU for stabilization of psychiatric symptoms and safety. Patient signed adult voluntary form and medication consent and is placed in patient's chart. -Medications : Continue Zoloft 50 mg daily for mood Continue Seroquel 75 mg qHS for sleep and mood stability Decrease melatonin to 5 mg p.o. at bedtime -Will continue to monitor the patient while in the unit and make medication adjustment as needed, the patient continued to meet criteria for inpatient hospitalization giving her current symptoms and mood instability, and will be needing medication adjustment - Vistaril PRN for anxiety/agitation -NRT- patch -Patient was counselled on substance abuse and desired to cut back on use. Motivational interviewing. -Psychoeducation was provided, the risks, benefits and side effects of the medication and patient verbally consented to taking the medications. Patient signed med consent form and was placed in chart. -Internal Medicine consult to perform medical evaluation and physical. -SW on board for discharge planning. Encourage patient to participate in groups to work on coping skills. The patient is tentative for discharge tomorrow if she continues to improve.
[2024-05-19] MEDS: MELATONIN 5 MG TABLET PO SCH (20:25)
[2024-05-20 08:17] VITALS: BP 121/80; PULSE 116; TEMP 98
--- NOTE | 2024-05-20 17:12 | P.DS ---
Providers Date of admission: 05/15/24 03:09 Expected date of discharge: 05/20/24 Attending physician: Ashley Avila MD Consults: 05/15/24 03:13 Consult Physician Routine Consulting Provider: Syd Strange Consult Reason/Comments: Medical H&P Do you want consulting provider notified?: Yes Primary care physician: Stated None - Discharge Diagnosis(es) (1) Schizoaffective disorder, depressive type Current Visit: Yes Status: Acute Priority: High (2) PTSD (post-traumatic stress disorder) Current Visit: Yes Status: Acute Priority: Medium (3) Autism spectrum disorder Current Visit: Yes Status: Acute Priority: Medium Hospital Course: Dictation was produced using [employer] dictation software. Please excuse any grammatical, word or spelling errors. Admission HPI: Patient presented to the ED with a petition from her mother stating "extreme highs and lowsangervolatileslamming objects and groomingnot taking medications". She reported noncompliance with meds due to insurance issues. Patient is cooperative on assessment and states that she is presenting due to stressors at home. She states that she believes management at her previous workplaces were discussing her and conspiring against her for reasons unknown. She spoke about her concerns with coworkers who substantiated her views and due to the troublesome work environment, she reports having quit work. She also states that she has been concerned about an uncle who has been coming more agitated and she is worried he is hostile towards his cat. She says this has made life at home difficult as well because she is unsure of how to handle the situation. Additionally, she also says she has been working on a title IX case against someone and this has been causing more anxiety and triggering her as well. She reports sleep has been occasionally difficult due to nightmares in relation to past trauma. She reports having occasional flashbacks. She endorses having more anxiety, trouble relaxing, feeling tense, and "difficult" mood. She endorses crying spells and at times becoming upset/yelling due to frustration with the stressors. She reports fair appetite and energy. She denies auditory or visual hallucinations. She denies suicidal ideation, intent or plan and denies homicidal ideation. She denies symptoms consistent with liu. She admits to noncompliance with medications. She was on Seroquel, Zoloft, and Buspar in the past and says these work well for her without concerns/side effects. She reports attending therapy regularly and "reality testing" by cross- checking her perceptions with others. She admits that she was doing better with medications. Admission note was completed by Pedrito Chen MD Hospital course: Upon admission to the unit patient was directable and agreeable to commence treatment and signed adult voluntary form. Patient got along well with other patients on the unit and followed unit protocol. Patient was compliant with the medications and denied any side effects throughout hospital course. Patient was started on Zoloft was titrated over her stay to 50 mg and Seroquel which was titrated to 75 mg over her stay. Patient spoke of her stressors and engaged in therapy both group and individual. Patient was also seen by medical team for history and physical exam. Throughout the course of the hospitalization patient gradually improved with regards to mood, anxiety, sleep and returned back to their baseline level of functioning, she became more future oriented with improved insight and judgment, reported that her main stressor is her relationship with her mother, reported that she will be working with her outpatient therapist to help with that. On the day of discharge patient denied any suicidal or homicidal ideations intent or plan denied any auditory or visual hallucinations. Patient endorsed wanting to live for their health and family. The patient denied any access to guns or weapons. Patient denied any paranoia and did not endorse any delusions. Patient does not have a significant history of substance abuse. Patient was also counseled on the medications and need for regular compliance and was encouraged to follow-up with their outpatient appointment for mental health and also for primary care. During her hospitalization the director of social services tried to get in contact with the patient mother however multiple voicemail was left. Patient reported that she is comfortable going back home, she denied having access to firearms or guns. O utpatient services scheduled for the patient with appointments coming up soon including mobile crisis unit. Patient also was provided with a list of shelters in the area needed. Agreed with discharge and reported she will be comfortable going back home. Mental status exam: General Appearance: Patient appears to be stated age is alert, directable, and attempts to cooperate. Patient appears to have fair hygiene and grooming. Behavior: Patient is seated without any agitated behavior. Speech: Patient's speech is fluent and nonpressured. Mood/Affect: Patient reports their mood is "good", affect is congruent Suicidality/Homicidality: Patient denies having any homicidal ideation intent or plan. Denies any suicidal ideations intent or plan Perceptions: Patient denies any visual hallucinations and denies any auditory hallucinations Though content/process: There is no evidence of any delusional thought content and thought process is tangential Memory and concentration: AOX3, grossly intact for the purposes of this session. Can spell "WORLD" backwards Judgment and insight:insight is fair and is improving, judgment, impulse control are fair Impression: - Schizoaffective disorder, depressed type (provisional) - Rule out bipolar disorder, depressed - Autism spectrum disorder - PTSD Plan: -Continue with discharge today as patient has improved and stabilized psychiatrically and is not currently an imminent threat to themself and/or others. Patient will remain at chronically elevated risk for harm to self and/or others due to their impulsivity and history. -Continue medications: Zoloft 50 mg daily (#30 with 0 refill) Seroquel 75 mg (#30 with 0 refill) -Patient was counseled on the need for medication compliance and appropriate follow-up at mental health and also primary care for medical issues. Patient verbalized understanding and agreed. -Social work to help coordinate patients discharge today, arrange for contacting the family to ensure safety upon discharge and answer any questions/concerns, also to ensure safe home environment that guns/weapons are either removed from the home or locked away. Social work also to arrange for patients follow up appointments with [facility] for psychiatric care along with follow up with primary care provider. -Patient counseled on abstaining from recreational drugs and marijuana and alcohol. Was informed/educated on the adverse effects on their physical and mental health. Patient verbally agreed and understood. -Patient was instructed to return to the hospital or seek immediate medical care if their psychiatric or medical symptoms do worsen or reoccur. Allergies Allergy/AdvReac Type Severity Reaction Status Date / Time No Known Allergies Allergy Verified 05/15/24 06:35 Laboratory Results WBC 5.7 k/uL (3.8-10.6) 05/16/24 10:23 RBC 4.90 m/uL (3.80-5.40) 05/16/24 10:23 Hgb 13.9 gm/dL (11.4-16.0) 05/16/24 10:23 Hct 43.8 % (34.0-46.0) 05/16/24 10:23 MCV 89.4 fL (80.0-100.0) 05/16/24 10:23 MCH 28.5 pg (25.0-35.0) 05/16/24 10:23 MCHC 31.8 g/dL (31.0-37.0) 05/16/24 10:23 RDW 13.0 % (11.5-15.5) 05/16/24 10:23 Plt Count 332 k/uL (150-450) 05/16/24 10:23 MPV 6.8 05/16/24 10:23 Neutrophils % 61 % 05/16/24 10:23 Lymphocytes % 27 % 05/16/24 10:23 Monocytes % 6 % 05/16/24 10:23 Eosinophils % 3 % 05/16/24 10:23 Basophils % 1 % 05/16/24 10:23 Neutrophils # 3.4 k/uL (1.3-7.7) 05/16/24 10:23 Lymphocytes # 1.5 k/uL (1.0-4.8) 05/16/24 10:23 Monocytes # 0.4 k/uL (0-1.0) 05/16/24 10:23 Eosinophils # 0.2 k/uL (0-0.7) 05/16/24 10:23 Basophils # 0.1 k/uL (0-0.2) 05/16/24 10:23 Sodium 138 mmol/L (137-145) 05/16/24 10:23 Potassium 4.8 mmol/L (3.5-5.1) 05/16/24 10:23 Chloride 104 mmol/L (98-107) 05/16/24 10:23 Carbon Dioxide 25 mmol/L (22-30) 05/16/24 10:23 Anion Gap 9 mmol/L 05/16/24 10:23 BUN 10 mg/dL (7-17) 05/16/24 10:23 Creatinine 0.72 mg/dL (0.52-1.04) 05/16/24 10:23 Est GFR (CKD-EPI)AfAm >90 (>60 ml/min/1.73 sqM) 05/16/24 10:23 Est GFR (CKD-EPI)NonAf >90 (>60 ml/min/1.73 sqM) 05/16/24 10:23 Glucose 75 mg/dL (74-99) 05/16/24 10:[address] Glu mg/dL 105 mg/dL 05/16/24 10:23 Hemoglobin A1c 5.3 % (<=6.0) 05/16/24 10:23 Calcium 10.0 mg/dL (8.4-10.2) 05/16/24 10:23 Total Bilirubin 0.8 mg/dL (0.2-1.3) 05/16/24 10:23 Conjugated Bilirubin 0.0 mg/dL (0.0-0.3) 05/16/24 10:23 Unconjugated Bilirubin 0.7 mg/dL (0.0-1.1) 05/16/24 10:23 Delta Bilirubin 0.1 mg/dL (0.0-0.2) 05/16/24 10:23 AST 18 U/L (14-36) 05/16/24 10:23 ALT 13 U/L (4-34) 05/16/24 10:23 Alkaline Phosphatase 70 U/L (38-126) 05/16/24 10:23 Total Protein 7.2 g/dL (6.3-8.2) 05/16/24 10:23 Albumin 4.6 g/dL (3.5-5.0) 05/16/24 10:23 Triglycerides 82.00 mg/dL (0.00-149.00) 05/16/24 10:23 Cholesterol 150.00 mg/dL (0.00-200.00) 05/16/24 10:23 LDL Cholesterol, Calc 78.2 mg/dL (0.0-131.0) 05/16/24 10:23 VLDL Cholesterol, Calc 16.40 mg/dL (5.00-40.00) 05/16/24 10:23 HDL Cholesterol 55.40 mg/dL (40.00-60.00) 05/16/24 10:23 Cholesterol/HDL Ratio 2.71 Ratio 05/16/24 10:23 TSH 1.360 mIU/L (0.465-4.680) 05/16/24 10:23 Urine Color Colorless 05/15/24 03:15 Urine Appearance Cloudy (Clear) H 05/15/24 03:15 Urine pH 6.5 (5.0-8.0) 05/15/24 03:15 Ur Specific [place] 1.008 (1.001-1.035) 05/15/24 03:15 Urine Protein Negative (Negative) 05/15/24 03:15 Urine Glucose (UA) Negative (Negative) 05/15/24 03:15 Urine Ketones Negative (Negative) 05/15/24 03:15 Urine Blood Negative (Negative) 05/15/24 03:15 Urine Nitrite Negative (Negative) 05/15/24 03:15 Urine Bilirubin Negative (Negative) 05/15/24 03:15 Urine Urobilinogen <2.0 mg/dL (<2.0) 05/15/24 03:15 Ur Leukocyte Esterase Negative (Negative) 05/15/24 03:15 Urine RBC <1 /hpf (0-5) 05/15/24 03:15 Urine WBC 1 /hpf (0-5) 05/15/24 03:15 Ur Squamous Epith Cells 7 /hpf (0-4) H 05/15/24 03:15 Amorphous Sediment Occasional /hpf (None) H 05/15/24 03:15 Urine Mucus Rare /hpf (None) H 05/15/24 03:15 Urine HCG, Qual Not Detected (Not Detectd) 05/15/24 03:15 Urine Opiates Screen Not Detected (NotDetected) 05/15/24 03:15 Ur Oxycodone Screen Not Detected (NotDetected) 05/15/24 03:15 Urine Methadone Screen Not Detected (NotDetected) 05/15/24 03:15 Ur Barbiturates Screen Not Detected (NotDetected) 05/15/24 03:15 U Tricyclic Antidepress Not Detected (NotDetected) 05/15/24 03:15 Ur Phencyclidine Scrn Not Detected (NotDetected) 05/15/24 03:15 Ur Amphetamines Screen Not Detected (NotDetected) 05/15/24 03:15 U Methamphetamines Scrn Not Detected (NotDetected) 05/15/24 03:15 U Benzodiazepines Scrn Not Detected (NotDetected) 05/15/24 03:15 Urine Cocaine Screen Not Detected (NotDetected) 05/15/24 03:15 U Marijuana (THC) Screen Not Detected (NotDetected) 05/15/24 03:15 Influenza Type A (PCR) Not Detected (Not Detectd) 05/15/24 00:20 Influenza Type B (PCR) Not Detected (Not Detectd) 05/15/24 00:20 RSV (PCR) Not Detected (Not Detectd) 05/15/24 00:20 SARS-CoV-2 (PCR) Not Detected (Not Detectd) 05/15/24 00:20 Vital Signs Temp 98.0 F 05/20/24 08:16 Pulse 116 H 05/20/24 08:16 Resp 16 05/20/24 08:16 BP 121/80 05/20/24 08:16 Pulse Ox 96 05/20/24 08:16 FiO2 Patient Condition at Discharge: Stable Plan - Discharge Summary Discharge Rx Participant: No New Discharge Prescriptions: New Melatonin 5 mg PO HS 30 Days #30 tab QUEtiapine [SEROquel] 75 mg PO HS 30 Days #30 tab Sertraline [Zoloft] 50 mg PO DAILY 30 Days #30 tab Continue Fluticasone Nasal [place] [Flonase Nasal Sumrall] 2 spray EA NOSTRIL DAILY ml Discontinued Melatonin 10 mg PO HS 30 Days #30 tab QUEtiapine [SEROquel] 75 mg PO HS 30 Days #90 tab Sertraline [Zoloft] 50 mg PO DAILY 30 Days #30 tab busPIRone HCL [Buspar] 30 mg PO BID 30 Days #60 tablet QUEtiapine [SEROquel] 25 mg PO DAILY 30 Days #30 tab Discharge Medication List Fluticasone Nasal [place] [Flonase Nasal [place]] 2 spray EA NOSTRIL DAILY ml 10/30/23 [Rx] Melatonin 5 mg PO HS 30 Days #30 tab 05/20/24 [Rx] QUEtiapine [SEROquel] 75 mg PO HS 30 Days #30 tab 05/20/24 [Rx] Sertraline [Zoloft] 50 mg PO DAILY 30 Days #30 tab 05/20/24 [Rx] Follow up Appointment(s)/Referral(s): [facility] [Outside] - 05/28/24 2:00 pm (05-28-24 at 2:00 with Simone Qureshi 05-31-24 at 11:[address] Banda) [facility] [REFERRING] - 1 Week Patient Instructions/Handouts: Schizoaffective Disorder (DC) Activity/Diet/Wound Care/Special Instructions: Avoid the use of street drugs and alcohol. Take all medications as prescribed. When you are in need of refills on your medications, please contact your medical provider and/or outpatient psychiatrist/provider to have this done. Please go to your scheduled outpatient appointment for aftercare treatment. If symptoms return or become worse, call the crisis line at and/or go to the nearest emergency room for evaluation. National Suicide Hotline 981 Follow up with PCP after discharge for Thyroid Ultra Sound. Mobile Crisis Unit is available 23/12 if needed [phone] [facility] [phone] [facility] Discharge Disposition: HOME SELF-CARE
== END 2024-05-20 14:00 | disposition home or self-care (01) | DRG 750 ==
LOC: EC 23:16 → 3MHU 05-15 03:09
PROVIDERS: ADMIT Psychiatry & Neurology Psychiatry; ATTEND Psychiatry & Neurology Psychiatry
DX: F25.1 Schizoaffective disorder, depressive type (principal); F43.10 Post-traumatic stress disorder, unspecified; F84.0 Autistic disorder; G60.0 Hereditary motor and sensory neuropathy; F31.9 Bipolar disorder, unspecified; F41.9 Anxiety disorder, unspecified; G89.29 Other chronic pain; Z91.51 Personal history of suicidal behavior; Z79.899 Other long term (current) drug therapy; Z91.148 Patient's other noncompliance with medication regimen for other reason; Z56.0 Unemployment, unspecified
CPT/HCPCS: 80053; 80061; 80306; 81001; 81025; 82075; 82248; 83036; 84443; 85025; 87636; 99285

== ENCOUNTER 2024-06-25 20:18 | Inpatient (IN) | payer MEDICAID, OTHER ==
--- NOTE | 2024-06-25 21:32 | ED ---
General Adult HPI - General Chief complaint: Psychiatric Symptoms Stated complaint: Petition Time Seen by Provider: 06/25/24 21:05 Source: patient, police, RN notes reviewed, old records reviewed Mode of arrival: ambulatory Limitations: no limitations - History of Present Illness Initial comments: Patient is a 24-year-old female presents emergency department for psychiatric evaluation. Patient had a court order pickup. There is a 1 petition for the patient, there is concern she is not taking her medications. She has been discussing things that may not be happening. She is paranoid with delusions. Presents for further evaluation. Patient states she has been taking her medications and was surprised at the court order pickup and does not cooperate the story and the potation however as patient has petition we will have psychiatry evaluate the patient. Denies suicidal or homicidal ideations. Denies any plans or attempts. Denies hallucinations. Has no other acute complaints. - Related Data Previous Rx's Medication Instructions Recorded Fluticasone Nasal [place] [Flonase 2 spray EA NOSTRIL DAILY ml 10/30/23 Nasal [place]] Melatonin 5 mg PO HS 30 Days #30 tab 05/20/24 QUEtiapine [SEROquel] 75 mg PO HS 30 Days #30 tab 05/20/24 Sertraline [Zoloft] 50 mg PO DAILY 30 Days #30 tab 05/20/24 Allergies Allergy/AdvReac Type Severity Reaction Status Date / Time No Known Allergies Allergy Verified 05/15/24 06:35 Review of Systems ROS Statement: Those systems with pertinent positive or pertinent negative responses have been documented in the HPI. Review of Systems: CONST: Denies fever EYES: Denies blurry vision ENT: Denies nasal congestion C/V: Denies Chest pain RESP: Denies shortness of breath GI: Denies abdominal pain : Denies dysuria SKIN: Denies rash. MSK: Denies joint pain. NEURO: Denies headache ROS Other: All systems not noted in ROS Statement are negative. 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 History of Any Multi-Drug Resistant Organisms: None Reported Past Surgical History: EPS Additional Past Surgical History / Comment(s): hx of suicidal thoughts, none recent Past Anesthesia/Blood Transfusion Reactions: No Reported Reaction Past Psychological History: Depression, PTSD, Schizoaffective Disorder Smoking Status: Never smoker Past Alcohol Use History: None Reported Past Drug Use History: None Reported General Exam - General Exam Comments Initial Comments: General: Appears in no acute distress. HEAD: Normal with no signs of head trauma. EYES: EOMI. ENT: Hearing grossly intact. RESPIRATORY: No respiratory distress. C/V: Regular rate and rhythm. ABD: Abdomen is nondistended. EXT: No obvious deformity. SKIN: No rashes or lesions observed on exposed skin. NEURO: Alert and oriented. Limitations: no limitations Course Vital Signs 06/25/24 20:22 Temperature 98.8 F Pulse Rate 102 H Respiratory 20 Rate Blood Pressure 139/90 O2 Sat by Pulse 95 Oximetry Medical Decision Making - Medical Decision Making Was pt. sent in by a medical professional or institution (, PA, [facility] [employer], urgent care, hospital, or long-term...) When possible be specific @ -No Did you speak to anyone other than the patient for history (EMS, parent, family, police, friend...)? What history was obtained from this source @ -No Did you review nursing and triage notes (agree or disagree)? Why? @ -I reviewed and agree with nursing and triage notes Were old charts reviewed (outside hosp., previous admission, EMS record, old EKG, old radiological studies, urgent care reports/EKG's, long-term records)? Report findings @ -Reviewed court ordered petition. Differential Diagnosis (chest pain, altered mental status, abdominal pain women, abdominal pain men, vaginal bleeding, weakness, fever, dyspnea, syncope, headache, dizziness, GI bleed, back pain, seizure, CVA, palpatations, mental health, musculoskeletal)? @ -Differential Mental Health Depression, anxiety, bipolar, psychosis, schizophrenia, borderline personality, situational depression, adjustment disorder, behavioral disorder, brain tumor, malingering, substance abuse, encephalopathy, medication reaction, dementia, hypothyroidism, degenerative neurologic disorder, lupus.... This is not meant to be all-inclusive list EKG interpreted by me (3pts min.). @ -None done X-rays interpreted by me (1pt min.). @ -None done CT interpreted by me (1pt min.). @ -None done U/S interpreted by me (1pt. min.). @ -None done What testing was considered but not performed or refused? (CT, X-rays, U/S, labs)? Why? @ -None What meds were considered but not given or refused? Why? @ -None Did you discuss the management of the patient with other professionals (professionals i.e. , PA, [employer], lab, RT, psych nurse, perinatal social worker, corporate lawyer, teacher, correctional security officer, case finisher)? Give summary @ -EPS notified of the consult Was smoking cessation discussed for >3mins.? @ -No Was critical care preformed (if so, how long)? @ -No Were there social determinants of health that impacted care today? How? (Homelessness, low income, unemployed, alcoholism, drug addiction, transportation, low edu. Level, literacy, decrease access to med. care, skilled nursing, rehab)? @ -No Was there de-escalation of care discussed even if they declined (Discuss DNR or withdrawal of care, Hospice)? DNR status @ -No What co-morbidities impacted this encounter? (DM, HTN, Smoking, COPD, CAD, Cancer, CVA, ARF, Chemo, Hep., AIDS, mental health diagnosis, sleep apnea, morbid obesity)? @ -Mental health Was patient admitted / discharged? Hospital course, mention meds given and route, prescriptions, significant lab abnormalities, going to OR and other pertinent info. @ -Patient presents emergency department for mental health evaluation with court order petition and pickup. Vitals are within acceptable limits. Patient is cooperative. BAT is 0. UDS is pending. Patient is medically cleared for evaluation at this time. Sitter ordered. Disposition pending psychiatric evaluation. EPS notified of the consult. Patient was evaluated by EPS and determined that she does meet inpatient criteria. Clinical certificate completed by myself. Patient admitted to inpatient psychiatry. Undiagnosed new problem with uncertain prognosis? @ -No Drug Therapy requiring intensive monitoring for toxicity (Heparin, Nitro, Insulin, Cardizem)? @ -No Were any procedures done? @ -No Diagnosis/symptom? @ -Psychosis NOS Acute, or Chronic, or Acute on Chronic? @ -Acute Uncomplicated (without systemic symptoms) or Complicated (systemic symptoms)? @ -Complicated Side effects of treatment? @ -None Exacerbation, Progression, or Severe Exacerbation] @ -No Poses a threat to life or bodily function? @ -Yes - Lab Data Lab Results 06/25/24 Range/Units 21:45 Urine Opiates Screen Not Detected (NotDetected) Ur Oxycodone Screen Not Detected (NotDetected) Urine Methadone Screen Not Detected (NotDetected) Ur Barbiturates Screen Not Detected (NotDetected) U Tricyclic Antidepress Not Detected (NotDetected) Ur Phencyclidine Scrn Not Detected (NotDetected) Ur Amphetamines Screen Not Detected (NotDetected) U Methamphetamines Scrn Not Detected (NotDetected) U Benzodiazepines Scrn Not Detected (NotDetected) Urine Cocaine Screen Not Detected (NotDetected) U Marijuana (THC) Screen Not Detected (NotDetected) Disposition Clinical Impression: Unspecified psychosis Disposition: TRANSFER TO PSYCH HOSP/UNIT Condition: Stable Referrals: None,Stated [Primary Care Provider] - 1-2 days Time of Disposition: 23:00
[2024-06-25 22:07] LABS: Amphetamine Screen,Urine Not Detected (NotDetected); Barbiturate Screen,Urine Not Detected (NotDetected); Benzodiazepines Screen,Urine Not Detected (NotDetected); Cocaine Screen,Urine Not Detected (NotDetected); Methadone Screen, Urine Not Detected (NotDetected); Opiate Screen,Urine Not Detected (NotDetected); Oxycodone Screen, Urine Not Detected (NotDetected); Phencyclidine Screen,Urine Not Detected (NotDetected); Tricyclic Antidepressant,Urine Not Detected (NotDetected); Urn Cannabinoid Scrn Not Detected (NotDetected)
[2024-06-26] MEDS ORDERED: haloperidoL 5 MG TAB PO PRN (03:02)
[2024-06-26] MEDS ORDERED: MAGNESIUM HYDROXIDE 2,400 MG/30 ML CUP PO PRN (03:02)
[2024-06-26] MEDS ORDERED: LORazepam 2 MG/ML INJ IM PRN (03:02)
[2024-06-26] MEDS ORDERED: HALOPERIDOL LACTATE 5 MG/ML 1 ML VIAL IM PRN (03:02)
[2024-06-26] MEDS: NICOTINE 14MG/24HR PATCH TRANSDERM SCH (11:22)
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
[2024-06-26] MEDS: SERTRALINE 50 MG TAB PO SCH (15:38)
[2024-06-26] MEDS: FLUTICASONE NASAL 50MCG/SPRAY 16GM BTL EA NOSTRIL SCH (15:38)
--- NOTE | 2024-06-26 17:29 | P.MDCNMH ---
History of Present Illness H&P Date: 06/26/24 Chief Complaint: medical consultation 24-year-old woman with reported medical history of Charcot Monalisa tooth disease presenting for evaluation for mental health. Medicine was consulted for medical evaluation. Patient has no complaints at this time. She reports that in ref erence to her Ppxkkei-Ogpvr-Wcwxy disease, she is to [facility], but was lost to follow-up after COVID. She says that she is largely self sustained with this disease and does not presently have symptoms of neuropathic pain. Review of systems is otherwise negative. Patient is hemodynamically stable. Urine tox screen is negative COVID was n egative. Gen: In NAD, non-toxic HEENT: normocephalic, atraumatic, hearing acuity is intant, mucous membranes moist CVS: perfusing all extremities well, no pitting edema, Respiratory: symmetric chest expansion, no accessory muscle use, GI: soft, NTTP, ND, : no suprapubic tenderness, no CVA tenderness MSK/Derm: no rashes, cyanosis Neuro: CN II-XII intact, no motor weakness, Psych: cooperative, euthymic mood, judgment and insight is intact Assessment/plan: Charcot Monalisa tooth disease -I recommend she continue follow-up with [facility] physician who is seeing her prior to this. 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 History of Any Multi-Drug Resistant Organisms: None Reported Past Surgical History: EPS Additional Past Surgical History / Comment(s): hx of suicidal thoughts, none recent Past Anesthesia/Blood Transfusion Reactions: No Reported Reaction Smoking Status: Never smoker Medications and Allergies Home Medications Medication Instructions Recorded Confirmed Type Fluticasone Nasal [place] [Flonase 2 spray EA NOSTRIL DAILY ml 10/30/23 05/20/24 Rx Nasal [place]] Melatonin 5 mg PO HS 30 Days #30 tab 05/20/24 Rx QUEtiapine [SEROquel] 75 mg PO HS 30 Days #30 tab 05/20/24 Rx Sertraline [Zoloft] 50 mg PO DAILY 30 Days #30 tab 12/19/24 Rx Allergies Allergy/AdvReac Type Severity Reaction Status Date / Time No Known Allergies Allergy Verified 05/15/24 06:35 Physical Exam Osteopathic Statement: *. No significant issues noted on an osteopathic structural exam other than those noted in the History and Physical/Consult. Vitals: Vital Signs Temp Pulse Resp BP Pulse Ox 06/25/24 20:22 98.8 F 102 H 20 139/90 95 Intake and Output 06/26/24 06/26/24 06/26/24 06:59 14:59 22:59 Other: Weight 65.856 kg Cranial Nerve Examination - Cranial Nerves Cranial Nerve II- Optic: Intact Cranial Nerve III- Oculomotor: Intact Cranial Nerve IV- Trochlear: Intact Cranial Nerve V- Trigeminal: Intact Cranial Nerve - Abducens: Intact Cranial Nerve VII- Facial: Intact Cranial Nerve VIII- Auditory: Intact Cranial Nerve IX- Glossopharyngeal: Intact Cranial Nerve X- Vagus: Intact Cranial Nerve XI- Accessory: Intact Cranial Nerve XII- Hypoglossal: Intact
[2024-06-26] MEDS: PALIPERIDONE 3 MG TAB.ER.24 PO SCH (20:32)
[2024-06-26] MEDS: MELATONIN 5 MG TABLET PO SCH (20:32)
[2024-06-26] MEDS ORDERED: QUEtiapine 25 MG TAB PO SCH (21:00)
[2024-06-27 10:13] LABS: Basophils % (A) 1 %; Eosinophils # (A) 0.1 k/uL (0-0.7); Eosinophils % (A) 3 %; HGB 13.3 gm/dL (11.4-16.0); Lymphocytes # (A) 1.6 k/uL (1.0-4.8); Lymphocytes % (A) 32 %; MCH 28.7 pg (25.0-35.0); MCHC 32.5 g/dL (31.0-37.0); MCV 88.3 fL (80.0-100.0); Mean Platelet Volume 6.5; Monocytes # (A) 0.3 k/uL (0-1.0); Monocytes % (A) 6 %; Neutrophils # (A) 2.8 k/uL (1.3-7.7); Neutrophils % (A) 57 %; Platelet Count 316 k/uL (150-450); RBC 4.64 m/uL (3.80-5.40); RDW 12.8 % (11.5-15.5)
[2024-06-27 10:46] LABS: ALT 13 U/L (4-34); AST 20 U/L (14-36); African American GFR (CKD) >90 (>60 ml/min/1.73 sqM); Albumin 4.4 g/dL (3.5-5.0); Alkaline Phosphatase 59 U/L (38-126); Anion Gap 14 mmol/L; Bilirubin, Delta 0.2 mg/dL (0.0-0.2); Bilirubin,Unconjugated 0.5 mg/dL (0.0-1.1); Blood Urea Nitrogen 6 mg/dL (7-17); Calcium 9.9 mg/dL (8.4-10.2); Carbon Dioxide 22 mmol/L (22-30); Chloride 105 mmol/L (98-107); Glucose 85 mg/dL (74-99); Non-African American GFR(CKD) >90 (>60 ml/min/1.73 sqM); Sodium 141 mmol/L (137-145); Total Bilirubin 0.7 mg/dL (0.2-1.3); Total Protein 6.9 g/dL (6.3-8.2)
--- NOTE | 2024-06-27 11:42 | P.PN ---
Progress Note - Text Progress Note Date: 06/27/24 Interval history: Patient was seen laying in bed today and was directable and agreeable to speak with lead technical writer. She claims that she felt a bit tired this morning slept in. States that she has been eating well, was more calm and cooperative today, fairly concrete with lead technical writer. She did appear to be more pleasant today less argumentative. Not endorsing any paranoia or delusions today. Claims that she has been taking the medications not reporting any side effects or problems. States that she slept fairly last night, denies any depression or anxiety today. At this time patient denies any suicidal or homicidal ideations intent or plan. Denies any Auditory or visual hallucinations. Patient denies any side effects from the medications and has been compliant with meds. Mental status exam: General Appearance: Patient appears to be tall, thin, stated age is alert, directable, and cooperative. Behavior: No agitated behavior. Patient is calm and directable attempts to cooperate Speech: Patient's speech is fluent and nonpressured. Mood/Affect: Mood is improving mildly, affect is congruent Suicidality/Homicidality: Patient denies having any suicidal or homicidal ideation intent or plan. Perceptions: Patient denies any auditory or visual hallucinations. Though content/process: There is no evidence of any delusional thought content and thought process is linear and goal-directed. [place] Memory and concentration: AOX3, grossly intact for the purposes of this session Judgment and insight: Poor, improving mildly Assessment/Plan: Continue with current diagnosis. Patient continues to meet criteria for inpatient psychiatric admission for symptom stabilization and safety. Patient will be maintained on current psychotropic medication regimen, discontinue melatonin, change Zoloft dosing to nightly. Monitor for medication compliance and for any psychotropic medication side effects. Will continue to monitor ongoing response to treatment. Encouraged participation in milieu.
[2024-06-27] MEDS: SERTRALINE 50 MG TAB PO SCH (21:18)
[2024-06-28 06:59] LABS: Chol/HDL Ratio 2.64 Ratio; LDL Cholesterol,Calculated 75.1 mg/dL (0.0-131.0); VLDL Calculation 10.56 mg/dL (5.00-40.00)
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
[2024-06-28] MEDS: PALIPERIDONE 6 MG TAB.ER.24 PO SCH (20:16)
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
[2024-06-29] MEDS: ONDANSETRON 4 MG/2 ML VIAL IM PRN (15:40)
[2024-06-29] MEDS: ACETAMINOPHEN TAB 325 MG TAB PO PRN (17:21)
[2024-06-29] MEDS: IBUPROFEN 600 MG TAB PO PRN (19:33)
[2024-06-30] MEDS: MAG HYDROX/AL HYDROX/SIMETH 355 ML BOTTLE PO PRN (08:18)
[2024-06-30] MEDS: ONDANSETRON ODT 4 MG TAB PO PRN (09:32)
[2024-06-30] MEDS: LORazepam 1 MG TAB PO PRN (10:24)
[2024-06-30] MEDS: ONDANSETRON ODT 4 MG TAB PO STA (11:19)
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
[2024-06-30] MEDS: PALIPERIDONE 3 MG TAB.ER.24 PO SCH (20:26)
[2024-06-30] MEDS: MELATONIN 5 MG TABLET PO SCH (20:26)
--- NOTE | 2024-07-01 13:25 | P.PN ---
Progress Note - Text Progress Note Date: 07/01/24 Interval History: Patient was seen wandering the hallways and was directable and agreeable to adriana khan with director underwriter sales in the office. She reports significant improvement in her nausea with discontinuing the Zoloft. She continues to report good sleep and appetite, stating she has been able to keep her food down. Patient continues to express paranoid delusions however she is now developing some insight into this, questioning the disconnect with her experience and the reality of her being readmitted to the hospital. She feels as though [facility] is the best plan for her so that she does not become nonadherent with her medications. At this time patient denies any suicidal or homicidal ideations, intent or plan. Patient denies any auditory, visual hallucinations. Patient denies any side effects from the medications and has been compliant with meds. Mental Status Exam: General Appearance: Patient appears to be stated age is alert, directable, and cooperative. He is tall and wears glasses Behavior: Patient is calmly seated without any agitated behavior. Speech: Patient's speech is fluent and nonpressured. Mood/Affect: Mood is improving mildly, affect is congruent and constricted. Suicidality/Homicidality: Patient denies having any suicidal or homicidal ideation intent or plan. Perceptions: Patient denies any visual hallucinations and denies any auditory hallucinations Though content/process: There is evidence of paranoid delusions however patient is developing more insight into this Memory and concentration: AOX3, grossly intact for the purposes of this session Judgment and insight: Improving mildly Assessment Schizoaffective disorder, depressed type Autism spectrum disorder PTSD Noncompliance with medication regimen Plan: -Patient continues to meet criteria for inpatient psychiatric admission for symptom stabilization and safety. Patient has not signed adult voluntary form and medication consent and was placed in patient's chart. -Medications: Invega Sustenna 234 mg IM to be given today with the second loading dose of 156 mg IM to be given over the weekend. Continue oral Invega 9 mg at bedtime in the interim, melatonin 10 mg at bedtime for insomnia -When necessary Ativan and Haldol for agitation/aggression. -Labs: EKG revealed normal sinus rhythm, QTc 430 -SW on board for discharge planning. Encouraged the patient to participate in milieu. Patient signed deferral yesterday. Anticipate discharge back home with mom early next week
[2024-07-01] MEDS: PALIPERIDONE IM 234 MG/1.5 ML SYG IM ONE (14:09)
[2024-07-01] MEDS: ONDANSETRON ODT 8 MG TAB.RAPDIS PO PRN (18:52)
--- NOTE | 2024-07-02 10:32 | P.PN ---
Progress Note - Text Progress Note Date: 07/02/24 Interval History: Patient was seen laying in bed and was directable and agreeable to speak with sports book writer in the room. She states feeling tired today and reports some arm soreness after receiving the shot yesterday. She reports sleeping well however and denied any restlessness, abnormal movements. She states her nausea is better as well. At this time patient denies any suicidal or homicidal ideations, intent or plan. Patient denies any auditory, visual hallucinations and denies any paranoia or delusions. Patient has been compliant with meds. Mental Status Exam: General Appearance: Patient appears to be stated age is fatigued but directable, and cooperative. Behavior: Patient is calmly laying without any agitated behavior. Speech: Patient's speech is fluent and nonpressured, brief. Mood/Affect: Mood is improving mildly, affect is congruent and constricted. Suicidality/Homicidality: Patient denies having any suicidal or homicidal ideation intent or plan. Perceptions: Patient denies any visual hallucinations and denies any auditory hallucinations Though content/process: There is no evidence of any delusional thought content and thought process is linear. Memory and concentration: AOX3, grossly intact for the purposes of this session Judgment and insight: Improving mildly Assessment Schizoaffective disorder, depressed type Autism spectrum disorder PTSD Noncompliance with medication regimen Plan: -Patient continues to meet criteria for inpatient psychiatric admission for symptom stabilization and safety. Patient has not signed adult voluntary form and medication consent and was placed in patient's chart. -Medications: Continue Invega 9 mg at bedtime for the next 2 nights then discontinue. Patient received first loading dose of Invega Sustenna 234 mg IM yesterday, second loading dose of 156 mg IM to be given on Friday. -When necessary Ativan and Haldol for agitation/aggression. -Labs: EKG revealed NSR, QTc 430 -SW on board for discharge planning. Encouraged the patient to participate in milieu. Anticipate discharge back home on Friday back home with mom. Patient signed deferral on Friday.
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
[2024-07-04 12:11] VITALS: RESP 20
[2024-07-04] MEDS: PALIPERIDONE IM 156 MG/ML SYG IM ONE (13:35)
[2024-07-04 18:33] LABS: Influenza A Not Detected (Not Detectd); Influenza B Not Detected (Not Detectd); RSV Not Detected (Not Detectd)
[2024-07-05 06:58] VITALS: BP 112/70; PULSE 82; TEMP 97.9
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
== END 2024-07-05 12:58 | disposition home or self-care (01) | DRG 761 ==
LOC: EC 20:18 → 3MHU 06-26 02:57
PROVIDERS: ADMIT Psychiatry & Neurology Psychiatry; ATTEND Psychiatry & Neurology Psychiatry
DX: F25.1 Schizoaffective disorder, depressive type (principal); F41.9 Anxiety disorder, unspecified; F43.10 Post-traumatic stress disorder, unspecified; F84.0 Autistic disorder; G60.0 Hereditary motor and sensory neuropathy; G89.29 Other chronic pain; Z79.899 Other long term (current) drug therapy; Z91.148 Patient's other noncompliance with medication regimen for other reason; Z91.410 Personal history of adult physical and sexual abuse; Z56.0 Unemployment, unspecified; Z59.82 Transportation insecurity; Z91.51 Personal history of suicidal behavior
CPT/HCPCS: 80053; 80061; 80306; 82075; 82248; 83036; 84443; 85025; 87635; 87636; 93005; 99285

== ENCOUNTER 2024-08-01 08:33 | Inpatient (IN) | payer MEDICAID, OTHER ==
--- NOTE | 2024-08-01 09:27 | ED ---
General Adult HPI - General Chief complaint: Psychiatric Symptoms Stated complaint: Suicidal ideations Time Seen by Provider: 08/01/24 08:50 Source: patient, EMS, RN notes reviewed, old records reviewed Mode of arrival: EMS Limitations: no limitations - History of Present Illness Initial comments: This is a 24-year-old female who presents to the emergency department stating over the last 3 days she is having more more suicidal thoughts. Patient states she thinks what set it off was 3 days ago they sold her car that was repossessed and she was hoping to get back someday. Patient states the medication she is on is decreased her psychosis but has not really helped that much with her depression. Patient has attempted suicide in the past she states and is worried that she will attempt it again. Patient denies any fever chills or cough. Patient denies any abdominal pain patient has nausea vomiting diarrhea. Patient denies any drinking or drug use. Patient denies that there is any chance she could be . - Related Data Previous Rx's Medication Instructions Recorded Fluticasone Nasal [place] [Flonase 2 spray EA NOSTRIL DAILY ml 10/30/23 Nasal [place]] Melatonin 10 mg PO HS 30 Days #0 tab 07/05/24 Paliperidone IM [Invega Sustenna] 156 mg IM QMONTHLY 30 Days #1 each 07/05/24 Allergies Allergy/AdvReac Type Severity Reaction Status Date / Time No Known Allergies Allergy Verified 08/01/24 08:48 Review of Systems ROS Statement: Those systems with pertinent positive or pertinent negative responses have been documented in the HPI. ROS Other: All systems not noted in ROS Statement are negative. 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 History of Any Multi-Drug Resistant Organisms: None Reported Past Surgical History: EPS Additional Past Surgical History / Comment(s): hx of suicidal thoughts, none recent Past Anesthesia/Blood Transfusion Reactions: No Reported Reaction Past Psychological History: Depression, PTSD, Schizoaffective Disorder Smoking Status: Never smoker Past Alcohol Use History: None Reported Past Drug Use History: None Reported General Exam - General Exam Comments Initial Comments: GENERAL: Patient is well-developed and well-nourished. Patient is nontoxic and well- hydrated and is in no acute distress. ENT: Neck is soft and supple. No significant lymphadenopathy is noted. Oropharynx is clear. Moist mucous membranes. Neck has full range of motion without eliciting any pain. EYES: The sclera were anicteric and conjunctiva were pink and moist. Extraocular movements were intact and pupils were equal round and reactive to light. Ey elids were unremarkable. PULMONARY: Unlabored respirations. Good breath sounds bilaterally. No audible rales rhonchi or wheezing was noted. CARDIOVASCULAR: There is a regular rate and rhythm without any murmurs gallops or rubs. ABDOMEN: Soft and nontender with normal bowel sounds. SKIN: Skin is clear with no lesions or rashes and otherwise unremarkable. NEUROLOGIC: Patient is alert and oriented x3. Cranial nerves II through XII are grossly intact. Motor and sensory are also intact. Normal speech, volume and content. Symmetrical smile. MUSCULOSKELETAL: Normal extremities with adequate strength and full range of motion. LYMPHATICS: No significant lymphadenopathy is noted PSYCHIATRIC: Patient states she is suicidal and she fears that she might make an attempt. Limitations: no limitations Course Vital Signs 08/01/24 08/01/24 08:41 12:00 Temperature 98.7 F 98.3 F Pulse Rate 90 92 Respiratory 18 16 Rate Blood Pressure 132/76 112/67 O2 Sat by Pulse 98 97 Oximetry Medical Decision Making - Medical Decision Making Was pt. sent in by a medical professional or institution (, PA, PLASTIC EXTRUSION OPERATOR, urgent care, hospital, or long-term...) When possible be specific @ -No Did you speak to anyone other than the patient for history (EMS, parent, family, police, friend...)? What history was obtained from this source @ -No Did you review nursing and triage notes (agree or disagree)? Why? @ -I reviewed and agree with nursing and triage notes Were old charts reviewed (outside hosp., previous admission, EMS record, old EKG, old radiological studies, urgent care reports/EKG's, long-term records)? Report findings @ -No old charts were reviewed Differential Diagnosis? @ -Differential Mental Health Depression, anxiety, bipolar, psychosis, schizophrenia, borderline personality, situational depression, adjustment disorder, behavioral disorder, brain tumor, malingering, substance abuse, encephalopathy, medication reaction, dementia, hypothyroidism, degenerative neurologic disorder, lupus.... This is not meant to be all-inclusive list EKG interpreted by me (3pts min.). @ -As above X-rays interpreted by me (1pt min.). @ -None done CT interpreted by me (1pt min.). @ -None done U/S interpreted by me (1pt. min.). @ -None done What testing was considered but not performed or refused? (CT, X-rays, U/S, labs)? Why? @ -None What meds were considered but not given or refused? Why? @ -None Did you discuss the management of the patient with other professionals (professionals i.e. , PA, PLASTIC EXTRUSION OPERATOR, lab, RT, psych nurse, social services assistant, production supply equipment tender, teacher, conservation enforcement officer, housing case manager)? Give summary @ -EPS evaluated the patient and I spoke with them after they spoke with the psychiatrist Was smoking cessation discussed for >3mins.? @ -No Was critical care preformed (if so, how long)? @ -No Were there social determinants of health that impacted care today? How? (Homelessness, low income, unemployed, alcoholism, drug addiction, transportation, low edu. Level, literacy, decrease access to med. care, intermediate, rehab)? @ -No Was there de-escalation of care discussed even if they declined (Discuss DNR or withdrawal of care, Hospice)? DNR status @ -No What co-morbidities impacted this encounter? (DM, HTN, Smoking, COPD, CAD, Cancer, CVA, ARF, Chemo, Hep., AIDS, mental health diagnosis, sleep apnea, morbid obesity)? @ -None Was patient admitted / discharged? Hospital course, mention meds given and route, prescriptions, significant lab abnormalities, going to OR and other pertinent info. @ -Patient decided to sign herself in and EPS agreed that she needed to be admitted as well as a psychiatrist agreeing that she need to be admitted Undiagnosed new problem with uncertain prognosis? @ -No Drug Therapy requiring intensive monitoring for toxicity (Heparin, Nitro, Insulin, Cardizem)? @ -No Were any procedures done? @ -No Diagnosis/symptom? @ -Depression, suicidal ideations Acute, or Chronic, or Acute on Chronic? @ -Acute Uncomplicated (without systemic symptoms) or Complicated (systemic symptoms)? @ -Complicated Side effects of treatment? @ -No Exacerbation, Progression, or Severe Exacerbation? @ -No Poses a threat to life or bodily function? How? (Chest pain, [place], [place], pneumonia, PE, COPD, DKA, ARF, appy, cholecystitis, CVA, Diverticulitis, Homicidal, Suicidal, threat to staff... and all critical care pts) @ -Yes this can lead to suicide and - Lab Data Lab Results 08/01/24 Range/Units 09:16 Urine Opiates Screen Not Detected (NotDetected) Ur Oxycodone Screen Not Detected (NotDetected) Urine Methadone Screen Not Detected (NotDetected) Ur Barbiturates Screen Not Detected (NotDetected) U Tricyclic Antidepress Not Detected (NotDetected) Ur Phencyclidine Scrn Not Detected (NotDetected) Ur Amphetamines Screen Not Detected (NotDetected) U Methamphetamines Scrn Not Detected (NotDetected) U Benzodiazepines Scrn Not Detected (NotDetected) Urine Cocaine Screen Not Detected (NotDetected) U Marijuana (THC) Screen Not Detected (NotDetected) Disposition Clinical Impression: Suicidal ideation, Depression Disposition: ADMITTED IP TO THIS HOSP Referrals: None,Stated [Primary Care Provider] - 1-2 days Time of Disposition: 15:48
[2024-08-01 10:10] LABS: Amphetamine Screen,Urine Not Detected (NotDetected); Barbiturate Screen,Urine Not Detected (NotDetected); Benzodiazepines Screen,Urine Not Detected (NotDetected); Cocaine Screen,Urine Not Detected (NotDetected); Methadone Screen, Urine Not Detected (NotDetected); Opiate Screen,Urine Not Detected (NotDetected); Oxycodone Screen, Urine Not Detected (NotDetected); Phencyclidine Screen,Urine Not Detected (NotDetected); Tricyclic Antidepressant,Urine Not Detected (NotDetected); Urn Cannabinoid Scrn Not Detected (NotDetected)
[2024-08-01] MEDS ORDERED: HALOPERIDOL LACTATE 5 MG/ML 1 ML VIAL IM PRN (17:26)
[2024-08-01] MEDS ORDERED: MAGNESIUM HYDROXIDE 2,400 MG/30 ML CUP PO PRN (17:26)
[2024-08-01] MEDS ORDERED: ACETAMINOPHEN TAB 325 MG TAB PO PRN (17:26)
[2024-08-01] MEDS ORDERED: MAG HYDROX/AL HYDROX/SIMETH 355 ML BOTTLE PO PRN (17:26)
[2024-08-01] MEDS ORDERED: LORazepam 2 MG/ML INJ IM PRN (17:26)
[2024-08-01 18:46] LABS: Amorphous Sediment,Urine Many /hpf; Appearance,Urine Turbid (Clear); Bilirubin,Urine Negative (Negative); Blood,Urine Negative (Negative); Color,Urine Light Yellow; Glucose,Urine (UA) Negative (Negative); Ketones,Urine Negative (Negative); Leukocyte Esterase,Urine Negative (Negative); Mucus,Urine Occasional /hpf; Nitrite,Urine Negative (Negative); PH, Urine 7.5 (5.0-8.0); Protein,Urine Negative (Negative); Specific Gravity,Urine 1.018 (1.001-1.035); Squamous Epithelial Cell,Urine 10 /hpf (0-4); Urobilinogen,Urine <2.0 mg/dL (<2.0)
[2024-08-01] MEDS: LORazepam 1 MG TAB PO PRN (20:26)
[2024-08-02] MEDS: haloperidoL 5 MG TAB PO PRN (08:37)
[2024-08-02 08:40] VITALS: RESP 16
[2024-08-02 10:28] LABS: Basophils # (A) 0.1 k/uL (0-0.2); Basophils % (A) 1 %; Eosinophils # (A) 0.1 k/uL (0-0.7); Eosinophils % (A) 1 %; HGB 13.6 gm/dL (11.4-16.0); Lymphocytes % (A) 11 %; MCH 28.6 pg (25.0-35.0); MCHC 30.9 g/dL (31.0-37.0); MCV 92.4 fL (80.0-100.0); Mean Platelet Volume 6.4; Monocytes # (A) 0.4 k/uL (0-1.0); Monocytes % (A) 4 %; Neutrophils # (A) 7.8 k/uL (1.3-7.7); Neutrophils % (A) 82 %; Platelet Count 368 k/uL (150-450); RBC 4.76 m/uL (3.80-5.40); RDW 12.6 % (11.5-15.5); WBC 9.5 k/uL (3.8-10.6)
[2024-08-02 10:50] LABS: ALT 16 U/L (4-34); AST 19 U/L (14-36); African American GFR (CKD) >90 (>60 ml/min/1.73 sqM); Albumin 4.4 g/dL (3.5-5.0); Alkaline Phosphatase 68 U/L (38-126); Anion Gap 11 mmol/L; Blood Urea Nitrogen 11 mg/dL (7-17); Calcium 9.8 mg/dL (8.4-10.2); Carbon Dioxide 25 mmol/L (22-30); Chloride 103 mmol/L (98-107); Glucose 101 mg/dL (74-99); Non-African American GFR(CKD) >90 (>60 ml/min/1.73 sqM); Potassium 4.1 mmol/L (3.5-5.1); Sodium 139 mmol/L (137-145); Total Bilirubin 0.7 mg/dL (0.2-1.3); Total Protein 7.2 g/dL (6.3-8.2)
[2024-08-02] MEDS: FLUoxetine HCL 20 MG CAP PO SCH (12:20)
--- NOTE | 2024-08-02 13:41 | P.HP ---
Psychiatric H&P - . H&P Date: 08/02/24 History & Physical: Allergies Allergy/AdvReac Type Severity Reaction Status Date / Time No Known Allergies Allergy Verified 08/01/24 17:07 Vital Signs Temp 97.4 F L 08/02/24 09:59 Pulse 113 H 08/02/24 09:59 Resp 16 08/02/24 09:59 BP 122/78 08/02/24 09:59 Pulse Ox 97 08/02/24 09:59 FiO2 Intake & Output 08/01/24 08/02/24 08/02/24 18:59 06:59 18:59 Weight 71.1 kg Laboratory Last Values WBC 9.5 k/uL (3.8-10.6) 08/02/24 09:49 RBC 4.76 m/uL (3.80-5.40) 08/02/24 09:49 Hgb 13.6 gm/dL (11.4-16.0) 08/02/24 09:49 Hct 44.0 % (34.0-46.0) 08/02/24 09:49 MCV 92.4 fL (80.0-100.0) 08/02/24 09:49 MCH 28.6 pg (25.0-35.0) 08/02/24 09:49 MCHC 30.9 g/dL (31.0-37.0) L 08/02/24 09:49 RDW 12.6 % (11.5-15.5) 08/02/24 09:49 Plt Count 368 k/uL (150-450) 08/02/24 09:49 MPV 6.4 08/02/24 09:49 Neutrophils % 82 % 08/02/24 09:49 Lymphocytes % 11 % 08/02/24 09:49 Monocytes % 4 % 08/02/24 09:49 Eosinophils % 1 % 08/02/24 09:49 Basophils % 1 % 08/02/24 09:49 Neutrophils # 7.8 k/uL (1.3-7.7) H 08/02/24 09:49 Lymphocytes # 1.0 k/uL (1.0-4.8) 08/02/24 09:49 Monocytes # 0.4 k/uL (0-1.0) 08/02/24 09:49 Eosinophils # 0.1 k/uL (0-0.7) 08/02/24 09:49 Basophils # 0.1 k/uL (0-0.2) 08/02/24 09:49 Sodium 139 mmol/L (137-145) 08/02/24 09:49 Potassium 4.1 mmol/L (3.5-5.1) 08/02/24 09:49 Chloride 103 mmol/L (98-107) 08/02/24 09:49 Carbon Dioxide 25 mmol/L (22-30) 08/02/24 09:49 Anion Gap 11 mmol/L 08/02/24 09:49 BUN 11 mg/dL (7-17) 08/02/24 09:49 Creatinine 0.80 mg/dL (0.52-1.04) 08/02/24 09:49 Est GFR (CKD-EPI)AfAm >90 (>60 ml/min/1.73 sqM) 08/02/24 09:49 Est GFR (CKD-EPI)NonAf >90 (>60 ml/min/1.73 sqM) 08/02/24 09:49 Glucose 101 mg/dL (74-99) H 08/02/24 09:49 Calcium 9.8 mg/dL (8.4-10.2) 08/02/24 09:49 Total Bilirubin 0.7 mg/dL (0.2-1.3) 08/02/24 09:49 AST 19 U/L (14-36) 08/02/24 09:49 ALT 16 U/L (4-34) 08/02/24 09:49 Alkaline Phosphatase 68 U/L (38-126) 08/02/24 09:49 Total Protein 7.2 g/dL (6.3-8.2) 08/02/24 09:49 Albumin 4.4 g/dL (3.5-5.0) 08/02/24 09:49 TSH 1.520 mIU/L (0.465-4.680) 08/02/24 09:49 Urine Color Light Yellow 08/01/24 09:16 Urine Appearance Turbid (Clear) H 08/01/24 09:16 Urine pH 7.5 (5.0-8.0) 08/01/24 09:16 Ur Specific [place] 1.018 (1.001-1.035) 08/01/24 09:16 Urine Protein Negative (Negative) 08/01/24 09:16 Urine Glucose (UA) Negative (Negative) 08/01/24 09:16 Urine Ketones Negative (Negative) 08/01/24 09:16 Urine Blood Negative (Negative) 08/01/24 09:16 Urine Nitrite Negative (Negative) 08/01/24 09:16 Urine Bilirubin Negative (Negative) 08/01/24 09:16 Urine Urobilinogen <2.0 mg/dL (<2.0) 08/01/24 09:16 Ur Leukocyte Esterase Negative (Negative) 08/01/24 09:16 Ur Squamous Epith Cells 10 /hpf (0-4) H 08/01/24 09:16 Amorphous Sediment Many /hpf (None) H 08/01/24 09:16 Urine Mucus Occasional /hpf (None) H 08/01/24 09:16 Urine HCG, Qual Not Detected (Not Detectd) 08/01/24 09:16 Urine Opiates Screen Not Detected (NotDetected) 08/01/24 09:16 Ur Oxycodone Screen Not Detected (NotDetected) 08/01/24 09:16 Urine Methadone Screen Not Detected (NotDetected) 08/01/24 09:16 Ur Barbiturates Screen Not Detected (NotDetected) 08/01/24 09:16 U Tricyclic Antidepress Not Detected (NotDetected) 08/01/24 09:16 Ur Phencyclidine Scrn Not Detected (NotDetected) 08/01/24 09:16 Ur Amphetamines Screen Not Detected (NotDetected) 08/01/24 09:16 U Methamphetamines Scrn Not Detected (NotDetected) 08/01/24 09:16 U Benzodiazepines Scrn Not Detected (NotDetected) 08/01/24 09:16 Urine Cocaine Screen Not Detected (NotDetected) 08/01/24 09:16 U Marijuana (THC) Screen Not Detected (NotDetected) 08/01/24 09:16 SARS-CoV-2 (PCR) Not Detected (Not Detectd) 08/01/24 16:30 08/02/24 13:32 IDENTIFYING DATA: Patient is a 24-year-old female, unemployed and living with mom CHIEF COMPLAINT: SI HPI: Patient presented to the hospital with suicidal thoughts. Per EPS, " pt states, "I been suicidal for a few days, but I think it's external factors." pt reports that she has had difficulty finding a job, recently received word that the car she had had repossessed was sold, and she is due for her invega injection tomorrow. pt states that she has been suicidal, but that it has worsened significantly the past couple of days. pt denies current SI and denies that she had had a plan. However, pt had required room change while in ER due to pt coming out to nurse's station and stating that she was going to stab herself per ER staff. pt denies HI and hallucinations. No delusional thoughts verbalized. pt cooperative with assessment." Patient seen and evaluated on the unit and was agreeable with speaking to pattern chart writer in office. She states she has been feeling suicidal for the past few days. Ongoing stressors include her losing her job and having her car repossessed. She states losing her car due to missed payments. She states things are well at home between her and her mother however she still wishes to eventually be independent and move out of her mom's house. She has been following up with [facility], taking her medications as prescribed. She mentions to previous paranoia regarding the smear campaign has gone away and she has not able to realized that was a factor of her previous psychosis and was not legitimate. She was on board with getting her Invega Sustenna shot today. Patient denies any sleep or appetite changes, anhedonia, energy changes. She does report anxiety. Patient denies any suicidal or homicidal ideations intent or plan. At this time patient denies any auditory or visual hallucinations. Patient denies any flight of ideas racing thoughts and increased in goal directed behavior. Patient admits to using no substances. PAST PSYCHIATRIC HISTORY: Patient has a history of schizoaffective disorder, autism spectrum disorder, PTSD. Patient is currently prescribed Invega Sustenna 156 mg IM every 4 weeks, last given on 07/04/2024 and next due on 08/01/2024, melatonin 10 mg at bedtime. Patient has tried Zoloft previously however reports adverse effects. Patient reports 4 previous inpatient hospitalizations, last being at this facility back in July 2024. Patient follows with [facility] and sees Dr. Banda. Patient reports >5 suicide attempts, most recent being in 2019. PMH: as per ER note ALLERGIES: as per EMR SUBSTANCE USE HISTORY: Denies FAMILY PSYCHIATRIC/SUBSTANCE USE HISTORY: Patient states her grandmother had depression and that depression runs on her father side of the family. She reports her father's aunt completed suicide. SOCIAL HISTORY: Patient was born and raised in [place]. She is unemployed, living with her mom, single with no kids. MENTAL STATUS EXAM: General Appearance: Patient appears to be stated age is alert, directable, and attempts to cooperate. Patient appears to have fair hygiene and grooming. She is tall, wears glasses Behavior: Patient is seated without any agitated behavior. Speech: Patient's speech is fluent and nonpressured. Mood/Affect: Patient reports their mood is depressed, affect is congruent and constricted. Suicidality/Homicidality: Patient denies having any homicidal ideation intent or plan. Denies any suicidal ideations intent or plan Perceptions: Patient denies any visual hallucinations and denies any auditory hallucinations Though content/process: There is no evidence of any delusional thought content and thought process is linear. Memory and concentration: AOX3, grossly intact for the purposes of this session. Can spell "WORLD" backwards Judgment and insight: Fair STRENGTHS/WEAKNESSES: strength is that patient is resilient, family support, adherence with medications. Weakness is that patient has poor judgment and is impulsive INTELLECT: Average IMPRESSIONS: Schizoaffective disorder, depressed type Autism spectrum disorder PTSD Adjustment disorder with depressed mood PLAN: -Patient is admitted under deferral status to [facility] for stabilization of psychiatric symptoms and safety. Patient has not signed adult voluntary form and medication consent and is placed in patient's chart. -Medications : Patient to receive Invega Sustenna 156 mg IM today, next dose being due on 08/30/24. Start Prozac 20 mg daily for depression, melatonin 10 mg at bedtime for insomnia -Ativan and Haldol PRN for agitation/aggression -Patient was informed of the risks, benefits and side effects of the medication and patient verbally consented to taking the medications. Patient signed med consent form and was placed in chart. -Internal Medicine consult to perform medical evaluation and physical. -NRT -not needed as patient does not smoke -SW on board for discharge planning. Encourage patient to participate in groups to work on coping skills. Patient deferral that expires 12/27/2024 08/02/24 13:38
[2024-08-02] MEDS ORDERED: PALIPERIDONE IM 156 MG/ML SYG IM ONE (14:00)
[2024-08-02] MEDS: PALIPERIDONE IM 156 MG/ML SYG IM ONE (16:12)
[2024-08-02] MEDS: IBUPROFEN 600 MG TAB PO PRN (16:16)
[2024-08-02 16:32] LABS: Chol/HDL Ratio 2.47 Ratio; LDL Cholesterol,Calculated 86.8 mg/dL (0.0-131.0); VLDL Calculation 16.06 mg/dL (5.00-40.00)
[2024-08-02] MEDS: MELATONIN 5 MG TABLET PO SCH (21:29)
--- NOTE | 2024-08-03 03:23 | P.MDCNMH ---
History of Present Illness H&P Date: 08/03/24 20-year-old male with history of past medical and for evaluation of suicidal ideation patient denies any suicidal ideation he reports that he is going through difficult social time lost his girlfriend and job and he decided to move out of state however one of his family members was concerned about his wellbeing notified police and brought him to the hospital for evaluation RN indicated that patient has history of autism otherwise it was difficult to obtain any history from the patient review of systems Pertinent positives as noted in HPI. All other systems were reviewed and are negative on exam Constitutional: No acute distress, Eyes: Anicteric sclerae, moist conjunctiva, Pupils equal round reactive to light Lungs: Clear to auscultation Clear to percussion Normal respiratory effort, no accessory muscle use Cardiovascular: Heart regular in rate and rhythm, No murmurs, gallops, or rubs No peripheral edema Abdominal: Soft Nontender, no guarding, rebound or rigidity Abdomen moving with respiration Normoactive bowel sounds Psychiatric: Alert and cooperative Neuro Muscles Strength 5/5 in all 4 extremities Suicidal ideation Management per psych Stable otherwise from medical standpoint Blood work reviewed overall unremarkable Thank you for this consultation 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 History of Any Multi-Drug Resistant Organisms: None Reported Past Surgical History: EPS Additional Past Surgical History / Comment(s): hx of suicidal thoughts, none recent Past Anesthesia/Blood Transfusion Reactions: No Reported Reaction Past Psychological History: Depression, PTSD, Schizoaffective Disorder Smoking Status: Never smoker Past Alcohol Use History: None Reported Past Drug Use History: None Reported Medications and Allergies Home Medications Medication Instructions Recorded Confirmed Type Paliperidone IM [Invega Sustenna] 156 mg IM QMONTHLY 30 Days #1 each 07/05/24 08/01/24 Rx Allergies Allergy/AdvReac Type Severity Reaction Status Date / Time No Known Allergies Allergy Verified 08/01/24 17:07 Physical Exam Vitals: Vital Signs Temp Pulse Resp BP Pulse Ox 08/02/24 09:59 97.4 F L 113 H 16 122/78 97 08/02/24 08:39 113 H 16 122/78 95 Cranial Nerve Examination - Cranial Nerves Cranial Nerve II- Optic: Intact Cranial Nerve III- Oculomotor: Intact Cranial Nerve IV- Trochlear: Intact Cranial Nerve V- Trigeminal: Intact Cranial Nerve - Abducens: Intact Cranial Nerve VII- Facial: Intact Cranial Nerve VIII- Auditory: Intact Cranial Nerve IX- Glossopharyngeal: Intact Cranial Nerve X- Vagus: Intact Cranial Nerve XI- Accessory: Intact Cranial Nerve XII- Hypoglossal: Intact Results CBC & Chem 7: 08/02/24 09:49 08/02/24 09:49 Labs: Abnormal Lab Results - Last 24 Hours (Table) 08/02/24 08/02/24 Range/Units 09:49 09:49 MCHC 30.9 L (31.0-37.0) g/dL Neutrophils # 7.8 H (1.3-7.7) k/uL Glucose 101 H (74-99) mg/dL HDL Cholesterol 70.10 H (40.00-60.00) mg/dL
--- NOTE | 2024-08-03 13:20 | P.PN ---
Progress Note - Text Progress Note Date: 08/03/24 Interval History: Patient was seen in bed and was directable and agreeable to speak with underwriter solicitation director in the office. She reported some abdominal pain however is unsure if it is due to the medications or her starting her menstrual cycle. She does report some arm soreness from the LEON yesterday but otherwise is tolerating it well. She reports low depression and anxiety today however does report suicidal ideations described as coming and going, no plan or intent. She denied any paranoia. At this time patient denies any homicidal ideations, intent or plan. Patient denies any auditory, visual hallucinations and denies any paranoia or delusions. Patient denies any side effects from the medications and has been compliant with meds. Spoke to patient's mother Tiffany who feels as though patient was doing well up until a week and a half ago when she noticed patient was pacing more, expressing suicidal thoughts. She feels as though patient's shot was starting to wear off and was agreeable with changing the frequency to every 3 weeks given her possible fast metabolism. Mother otherwise was on board with patient returning home with her, supportive. Mental Status Exam: General Appearance: Patient appears to be stated age is alert, directable, and cooperative. She is tall, wears glasses Behavior: Patient is calmly seated without any agitated behavior. Speech: Patient's speech is fluent and nonpressured. Mood/Affect: Mood is improving mildly, affect is congruent and constricted. Suicidality/Homicidality: Patient denies having any homicidal ideation intent or plan. She reports suicidal ideations, coming and going Perceptions: Patient denies any visual hallucinations and denies any auditory hallucinations Though content/process: There is no evidence of any delusional thought content and thought process is linear and logical. Memory and concentration: AOX3, grossly intact for the purposes of this session Judgment and insight: Improving mildly Assessment Schizoaffective disorder, depressed type Autism spectrum disorder PTSD Adjustment disorder with depressed mood Plan: -Patient continues to meet criteria for inpatient psychiatric admission for symptom stabilization and safety. Patient has not signed adult voluntary form and medication consent and was placed in patient's chart. Patient currently on a deferral that ends 12/27/2024 -Medications: Continue Prozac 20 mg daily for depression, Invega Sustenna 156 mg IM given yesterday, Q 3 weeks next dose being due on 08/23/2024 -When necessary Ativan and Haldol for agitation/aggression. -Labs: Reviewed -SW on board for discharge planning. Encouraged the patient to participate in milieu. Anticipate discharge back home with mom on
[2024-08-04] MEDS: FLUoxetine HCL 10 MG CAP PO SCH (08:10)
--- NOTE | 2024-08-04 11:40 | P.PN ---
Progress Note - Text Progress Note Date: 08/04/24 Interval History: Patient was seen in her room and was directable and agreeable to speak with wr iter in the office. Patient reports feeling "anxious" regarding her recent employment. She mentions working at this place for 2 months however was let go due to issues with timeliness. Patient was encouraged to learn from this experience and continue to apply for new jobs to which she states she has filled out several applications. Patient otherwise reports low depression, has been reading as a coping skill, sleeping well. At this time patient denies any suicidal or homicidal ideations, intent or plan. Patient denies any auditory, visual hallucinations and denies any paranoia or delusions. Patient denies any side effects from the medications and has been compliant with meds. Mental Status Exam: General Appearance: Patient appears to be stated age is alert, directable, and cooperative. She is tall, thin and wears glasses Behavior: Patient is calmly seated without any agitated behavior. Speech: Patient's speech is fluent and nonpressured. Mood/Affect: Mood is improving mildly, affect is congruent and constricted. Suicidality/Homicidality: Patient denies having any suicidal or homicidal ideation intent or plan. Perceptions: Patient denies any visual hallucinations and denies any auditory hallucinations Though content/process: There is no evidence of any delusional thought content and thought process is linear and goal-directed. Memory and concentration: AOX3, grossly intact for the purposes of this session Judgment and insight: Improving mildly Assessment Schizoaffective disorder, depressed type Autism spectrum disorder PTSD Adjustment disorder with depressed mood Plan: -Patient continues to meet criteria for inpatient psychiatric admission for symptom stabilization and safety. Patient has signed adult voluntary form and medication consent and was placed in patient's chart. -Medications: Increase Prozac to 30 mg daily today for depression, continue Invega Sustenna 156 mg IM every 3 weeks, last given on 08/02/2024 and next due on 08/23/2024 -When necessary Ativan and Haldol for agitation/aggression. -Labs: Reviewed -SW on board for discharge planning. Encouraged the patient to participate in milieu. Anticipate discharge back home with mom tomorrow
--- NOTE | 2024-08-05 02:55 | P.MDCNMH ---
History of Present Illness H&P Date: 08/03/24 24-year-old female with no significant past medical coming in for evaluation of suicidal ideation patient denies any suicidal ideation at this time she reports that he is going through difficult social events . she does not provide much history otherwise, denies any auditory or visual hallucination RN indicated that patient has history of autism otherwise it was difficult to obtain any history from the patient review of systems Pertinent positives as noted in HPI. All other systems were reviewed and are negative on exam Constitutional: No acute distress, Eyes: Anicteric sclerae, moist conjunctiva, Pupils equal round reactive to light Lungs: Clear to auscultation Clear to percussion Normal respiratory effort, no accessory muscle use Cardiovascular: Heart regular in rate and rhythm, No murmurs, gallops, or rubs No peripheral edema Abdominal: Soft Nontender, no guarding, rebound or rigidity Abdomen moving with respiration Normoactive bowel sounds Psychiatric: Alert and cooperative Neuro Muscles Strength 5/5 in all 4 extremities Suicidal ideation Management per psych Stable otherwise from medical standpoint Blood work reviewed overall unremarkable Thank you for this consultation 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 History of Any Multi-Drug Resistant Organisms: None Reported Past Surgical History: EPS Additional Past Surgical History / Comment(s): hx of suicidal thoughts, none recent Past Anesthesia/Blood Transfusion Reactions: No Reported Reaction Past Psychological History: Depression, PTSD, Schizoaffective Disorder Smoking Status: Never smoker Past Alcohol Use History: None Reported Past Drug Use History: None Reported Medications and Allergies Home Medications Medication Instructions Recorded Confirmed Type Paliperidone IM [Invega Sustenna] 156 mg IM QMONTHLY 30 Days #1 each 07/05/24 08/01/24 Rx Allergies Allergy/AdvReac Type Severity Reaction Status Date / Time No Known Allergies Allergy Verified 08/01/24 17:07 Physical Exam Vitals: Vital Signs Temp Pulse Resp BP Pulse Ox 08/04/24 22:40 98.2 F 67 16 100/62 97 08/04/24 08:12 97.3 F L 76 16 107/71 98 Cranial Nerve Examination - Cranial Nerves Cranial Nerve II- Optic: Intact Cranial Nerve III- Oculomotor: Intact Cranial Nerve IV- Trochlear: Intact Cranial Nerve V- Trigeminal: Intact Cranial Nerve - Abducens: Intact Cranial Nerve VII- Facial: Intact Cranial Nerve VIII- Auditory: Intact Cranial Nerve IX- Glossopharyngeal: Intact Cranial Nerve X- Vagus: Intact Cranial Nerve XI- Accessory: Intact Cranial Nerve XII- Hypoglossal: Intact Results CBC & Chem 7: 08/02/24 09:49 08/02/24 09:49
[2024-08-05 08:16] VITALS: BP 109/71; PULSE 118; TEMP 97.2
--- NOTE | 2024-08-05 11:43 | P.DS ---
Providers Date of admission: 08/01/24 17:20 Expected date of discharge: 08/05/24 Attending physician: Ashley Avila MD Consults: 08/01/24 17:26 Consult Physician Routine Consulting Provider: Syd Strange Consult Reason/Comments: H&P and medical Do you want consulting provider notified?: Yes Primary care physician: Stated None - Discharge Diagnosis(es) (1) Schizoaffective disorder, depressive type Current Visit: Yes Status: Acute Priority: High (2) Adjustment disorder with depressed mood Current Visit: Yes Status: Acute Priority: High (3) PTSD (post-traumatic stress disorder) Current Visit: Yes Status: Acute Priority: Low (4) Autism spectrum disorder Current Visit: Yes Status: Chronic Priority: Low Hospital Course: Admission HPI: Admission note was completed by typewriter mechanic "Patient presented to the hospital with suicidal thoughts. Per EPS, " pt states, "I been suicidal for a few days, but I think it's external factors." pt reports that she has had difficulty finding a job, recently received word that the car she had had repossessed was sold, and she is due for her invega injection tomorrow. pt states that she has been suicidal, but that it has worsened significantly the past couple of days. pt denies current SI and denies that she had had a plan. However, pt had required room change while in ER due to pt coming out to nurse's station and stating that she was going to stab herself per ER staff. pt denies HI and hallucinations. No delusional thoughts verbalized. pt cooperative with assessment." Patient seen and evaluated on the unit and was agreeable with speaking to typewriter mechanic in office. She states she has been feeling suicidal for the past few days. Ongoing stressors include her losing her job and having her car repossessed. She states losing her car due to missed payments. She states things are well at home between her and her mother however she still wishes to eventually be independent and move out of her mom's house. She has been following up with [facility], taking her medications as prescribed. She mentions to previous paranoia regarding the smear campaign has gone away and she has not able to realized that was a factor of her previous psychosis and was not legitimate. She was on board with getting her Invega Sustenna shot today. Patient denies any sleep or appetite changes, anhedonia, energy changes. She does report anxiety. Patient denies any suicidal or homicidal ideations intent or plan. At this time patient denies any auditory or visual hallucinations. Patient denies any flight of ideas racing thoughts and increased in goal directed behavior. Patient admits to using no substances." Hospital course: Upon admission to the unit patient was directable and agreeable to commence treatment and signed adult voluntary form.. Patient got along well with other patients on the unit and followed unit protocol. Patient was compliant with the medications and denied any side effects throughout hospital course. Patient was started on Prozac and this was increased to 30 mg daily for depression, Invega Sustenna 156 mg IM was continued however frequency was adjusted to every 3 weeks, last given on 08/02/2024 and next due on 08/23/2024. Patient spoke of her stressors and engaged in therapy both group and individual. Patient was also seen by medical team for history and physical exam. Throughout the course of the hospitalization patient gradually improved with regards to mood, anxiety, sleep and returned back to their baseline level of functioning. On the day of discharge patient denied any suicidal or homicidal ideations intent or plan denied any auditory or visual hallucinations. The patient denied any access to guns or weapons. Patient denied any paranoia and did not endorse any delusions. Patient does not have a significant history of substance abuse and was counseled on abstaining from all substances including alcohol and marijuana. Patient was also counseled on the medications and need for regular compliance and was encouraged to follow-up with their outpatient appointment for mental health and also for primary care. Prior to discharge a family meeting will be arranged by social media marketing manager to answer any questions and ensure safety upon discharge including making sure that guns/weapons are either removed from the home or locked away. Patient to be discharged back home with mom and will follow-up with [facility]. Mental status exam: General Appearance: Patient appears to be stated age is alert, pleasant, and cooperative. Patient is in no acute distress and has fair hygiene and grooming Behavior: Patient is calmly seated without any agitated behavior. Speech: Patient's speech is fluent and nonpressured. Mood/Affect: Patient reports their mood is "good", affect is congruent and euthymic. Suicidality/Homicidality: Patient denies having any suicidal or homicidal ideation intent or plan. Perceptions: Patient denies any auditory or visual hallucinations. Though content/process: There is no evidence of any delusional thought content and thought process is linear and goal-directed. Memory and concentration: AOX3, grossly intact for the purposes of this session. Can spell "WORLD" backwards correctly. Judgment and insight: Fair Impression: Schizoaffective disorder, depressed type Autism spectrum disorder PTSD Adjustment disorder with depressed mood Plan: -Continue with discharge today as patient has improved and stabilized psychiatrically and is not currently an imminent threat to themself and/or others. -Continue medications: Prozac 30 mg daily, Invega Sustenna 156 mg IM every 3 weeks, last given on 08/02/2024 and next due on 08/23/2024 -Patient was counseled on the need for medication compliance and appropriate follow-up at mental health and also primary care for medical issues. Patient verbalized understanding and agreed. -Social work to help coordinate patients discharge today arrange for and conduct family meeting to ensure safety upon discharge and answer any questi ons/concerns. also to ensure safe home environment that guns/weapons are either removed from the home or locked away. Social work also to arrange for patients follow up appointments with [facility] for psychiatric care along with follow up with primary care provider. -Patient counseled on abstaining from recreational drugs and marijuana and alcohol. Was informed/educated on the adverse effects on their physical and mental health. Patient verbally agreed and understood. -Patient was instructed to return to the hospital or seek immediate medical care if their psychiatric or medical symptoms do worsen or reoccur. Abnormal Labs 08/01/24 08/02/24 08/02/24 09:16 09:49 09:49 MCHC 30.9 L Neutrophils # 7.8 H Glucose 101 H HDL Cholesterol 70.10 H Urine Appearance Turbid H Ur Squamous Epith Cells 10 H Amorphous Sediment Many H Urine Mucus Occasional H Vital Signs Temp 97.2 F L 08/05/24 08:15 Pulse 118 H 08/05/24 08:15 Resp 16 08/05/24 08:15 BP 109/71 08/05/24 08:15 Pulse Ox 97 08/05/24 08:15 FiO2 Allergies Allergy/AdvReac Type Severity Reaction Status Date / Time No Known Allergies Allergy Verified 08/01/24 17:07 Patient Condition at Discharge: Stable Plan - Discharge Summary Discharge Rx Participant: No New Discharge Prescriptions: New FLUoxetine HCL [PROzac] 30 mg PO DAILY 30 Days #90 cap Continue Paliperidone IM [Invega Sustenna] 156 mg IM QMONTHLY 21 Days #1 each Discharge Medication List FLUoxetine HCL [PROzac] 30 mg PO DAILY 30 Days #90 cap 08/05/24 [Rx] Paliperidone IM [Invega Sustenna] 156 mg IM QMONTHLY 21 Days #1 each 08/05/24 [Rx] Follow up Appointment(s)/Referral(s): [facility] [Outside] - 08/09/24 1:00 pm (08/09 at 1pm with Simone Qureshi 08/18 at 1:30pm with Dr. Banda) [facility] [REFERRING] - 1 Week Patient Instructions/Handouts: Depression (DC), Schizoaffective Disorder (DC), Autism Spectrum Disorder (GEN) Activity/Diet/Wound Care/Special Instructions: [facility] Discharge Info Avoid the use of street drugs and alcohol. Take all medications as prescribed. When you are in need of refills on your medications, please contact your outpatient medical provider and/or outpatient psychiatrist. Please go to your scheduled outpatient appointments for aftercare treatment. If symptoms return or become worse, call the crisis line at or and/or visit the nearest emergency room for assistance. National Suicide and Crisis Lifeline - call or text 988 Discharge Disposition: HOME SELF-CARE
== END 2024-08-05 11:58 | disposition home or self-care (01) | DRG 761 ==
LOC: EC 08:33 → 3MHU 17:20
PROVIDERS: ADMIT Psychiatry & Neurology Psychiatry; ATTEND Psychiatry & Neurology Psychiatry
DX: F25.1 Schizoaffective disorder, depressive type (principal); R45.851 Suicidal ideations; F43.21 Adjustment disorder with depressed mood; F43.10 Post-traumatic stress disorder, unspecified; F41.9 Anxiety disorder, unspecified; F84.0 Autistic disorder; Z56.0 Unemployment, unspecified; Z91.51 Personal history of suicidal behavior; Z79.899 Other long term (current) drug therapy
CPT/HCPCS: 80053; 80061; 80306; 81001; 81025; 83036; 84443; 85025; 87635; 99285

== ENCOUNTER 2024-08-21 16:45 | Observation (INO) | payer OTHER ==
--- NOTE | 2024-08-21 17:05 | ED ---
Psych HPI - General Source: patient, RN notes reviewed Mode of arrival: ambulatory Limitations: no limitations <Bogdan Medeiros - Last Filed: 08/21/24 17:03> <Cory Wang - Last Filed: 08/22/24 03:31> - General Source: patient, RN notes reviewed, old records reviewed Mode of arrival: ambulatory Limitations: no limitations - History of Present Illness MD Complaint: suicidal ideation, feels depressed -: days(s) Associated Psychiatric Symptoms: depression, suicidal ideation History of same: Yes Quality: constant, getting worse Improves With: none Associated Symptoms: denies other symptoms Treatments Prior to Arrival: placed on mental health hold If Self Harm: admits thoughts of self harm <Thompson Odom - Last Filed: 08/29/24 18:51> - General Stated Complaint: Petition Time Seen by Provider: 08/21/24 16:57 - History of Present Illness Initial Comments: Quick note: This is a 24-year-old female with history of MDD and schizoaffective disorder presenting with PD for suicidal ideation x 3 days. Patient states she dreamed of cutting herself with no action taken place. Endorses history of attempts including throwing self down stairs. Patient states she is currently taking psychiatric medication and talk to a counselor, which she states is helping. Denies alcohol/drug use or homicidal ideation. (Bogdan Medeiros) This is a 24 male to ER for evaluation of suicidal ideation x 3 days, no history of cutting but does have thoughts of cutting or self and thoughts of jumping or throwing down a flight of stairs. Denies recent alcohol or drug use (Thompson Odom) - Related Data Home Medications Medication Instructions Recorded Confirmed Paliperidone IM [Invega Sustenna] 156 mg IM Q21D 08/22/24 08/22/24 Previous Rx's Medication Instructions Recorded FLUoxetine HCL [PROzac] 40 mg PO DAILY 15 Days #30 cap 08/24/24 Allergies Allergy/AdvReac Type Severity Reaction Status Date / Time No Known Allergies Allergy Verified 08/22/24 09:29 Review of Systems ROS Other: All systems not noted in ROS Statement are negative. <Bogdan Medeiros - Last Filed: 08/21/24 17:03> ROS Other: All systems not noted in ROS Statement are negative. <Atul Wangsse Andree - Last Filed: 08/22/24 03:31> ROS Other: All systems not noted in ROS Statement are negative. <Thompson Odom - Last Filed: 08/29/24 18:51> ROS Statement: Those systems with pertinent positive or pertinent negative responses have been documented in the HPI. 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 History of Any Multi-Drug Resistant Organisms: None Reported Past Surgical History: EPS Additional Past Surgical History / Comment(s): hx of suicidal thoughts, none recent Past Anesthesia/Blood Transfusion Reactions: No Reported Reaction Past Psychological History: Depression, PTSD, Schizoaffective Disorder Smoking Status: Never smoker Past Alcohol Use History: None Reported Past Drug Use History: None Reported <WaldemarBogdan - Last Filed: 08/21/24 17:03> General Exam <WaldemarBogdan - Last Filed: 08/21/24 17:03> General appearance: alert, in no apparent distress Head exam: Present: atraumatic, normocephalic, normal inspection Eye exam: Present: normal appearance, PERRL, EOMI. Absent: scleral icterus, conjunctival injection, periorbital swelling ENT exam: Present: normal exam, mucous membranes moist Neck exam: Present: normal inspection. Absent: tenderness, meningismus, lymphadenopathy Respiratory exam: Present: normal lung sounds bilaterally. Absent: respiratory distress, wheezes, rales, rhonchi, stridor Cardiovascular Exam: Present: regular rate, normal rhythm, normal heart sounds. Absent: systolic murmur, diastolic murmur, rubs, gallop, clicks GI/Abdominal exam: Present: soft, normal bowel sounds. Absent: distended, tenderness, guarding, rebound, rigid Extremities exam: Present: normal inspection, full ROM, normal capillary refill. Absent: tenderness, pedal edema, joint swelling, calf tenderness Back exam: Present: normal inspection Neurological exam: Present: alert, oriented X3, CN II-XII intact Psychiatric exam: Present: normal affect, normal mood Skin exam: Present: warm, dry, intact, normal color. Absent: rash <Thompson Odom - Last Filed: 08/29/24 18:51> - General Exam Comments Initial Comments: Visual Physical Exam Vital signs reviewed General: Well-appearing, nontoxic, no acute distress. Head: Normocephalic, atraumatic Eyes: PERRLA, EOMI ENT: Airway patent Chest: Nonlabored breathing Skin: No visual rash, normal skin tone Neuro: Alert and oriented 3. Flat affect Musculoskeletal: No gross abnormalities (Bogdan Medeiros) Course <Thompson Odom - Last Filed: 08/29/24 18:51> Vital Signs 08/21/24 08/21/24 08/22/24 16:57 22:33 05:11 Temperature 98.0 F 97.9 F 98.2 F Pulse Rate 83 85 92 Respiratory 17 17 18 Rate Blood Pressure 114/74 104/63 108/54 O2 Sat by Pulse 97 97 99 Oximetry 08/22/24 08/22/24 08/22/24 14:44 16:13 17:50 Temperature 98.4 F Pulse Rate 90 Respiratory 16 15 15 Rate Blood Pressure 115/77 O2 Sat by Pulse 98 Oximetry 08/23/24 08/23/24 08/23/24 06:42 13:19 17:55 Temperature 98.5 F Pulse Rate 100 91 75 Respiratory 18 18 16 Rate Blood Pressure 100/66 114/74 100/63 O2 Sat by Pulse 98 96 95 Oximetry 08/24/24 08/24/24 08/24/24 01:01 06:03 07:39 Temperature 98.7 F 98.4 F Pulse Rate 82 71 78 Respiratory 14 16 16 Rate Blood Pressure 112/76 102/61 114/66 O2 Sat by Pulse 99 97 97 Oximetry 08/24/24 15:25 Temperature Pulse Rate 78 Respiratory 18 Rate Blood Pressure 122/78 O2 Sat by Pulse 99 Oximetry - Reevaluation(s) Reevaluation #1: 08/21/24 18:24 Medical records reviewed (Thompson Odom) Reevaluation #2: 08/21/24 18:24 Cleared for psychiatric evaluation (Thompson Odom) Reevaluation #3: Was pt. sent in by a medical professional or institution (, PA, SEED TESTER, urgent care, hospital, or [place] [facility] [place] facility...) When possible be specific @ -no Did you speak to anyone other than the patient for history (EMS, parent, family, police, friend...)? What history was obtained from this source @ -no Did you review nursing and triage notes (agree or disagree)? Why? @ -agree Are old charts reviewed (outside hosp., previous admission, EMS record, old EKG, old radiological studies, urgent care reports/EKG's, [place] [facility] [place] records)? Report findings @ -yes Differential Diagnosis (chest pain, altered mental status, abdominal pain women, abdominal pain men, vaginal bleeding, weakness, fever, dyspnea, syncope, headache, dizziness, GI bleed, back pain, seizure, CVA, palpatations, mental health, musculoskeletal)? @ -prior EKG interpreted by me (3pts min.). @ -no X-rays interpreted by me (1pt min.). @ -no CT interpreted by me (1pt min.). @ -no U/S interpreted by me (1pt. min.). @ -no What testing was considered but not performed or refused? (CT, X-rays, U/S, labs)? Why? @ -none What meds were considered but not given or refused? Why? @ -none Did you discuss the management of the patient with other professionals (professionals i.e. , PA, SEED TESTER, lab, RT, psych nurse, social service agency director, natural science manager, teacher, aoc airspace control officer, case operator)? Give summary @ -no Was smoking cessation discussed for >3mins.? @ -no Was critical care preformed (if so, how long)? @ -no Were there social determinants of health that impacted care today? How? (Homelessness, low income, unemployed, alcoholism, drug addiction, transportation, low edu. Level, literacy, decrease access to med. care, retirement, rehab)? @ -none Was there de-escalation of care discussed even if they declined (Discuss DNR or withdrawal of care, Hospice)? DNR status @ -no What co-morbidities impacted this encounter? (DM, HTN, Smoking, COPD, CAD, Cancer, CVA, ARF, Chemo, Hep., AIDS, mental health diagnosis, sleep apnea, morbid obesity)? @ -none Was patient admitted / discharged? Hospital course, mention meds given and route, prescriptions, significant lab abnormalities, going to OR and other pertinent info. @ -24 female to ER will be admitted for psychiatric evaluation Undiagnosed new problem with uncertain prognosis? @ -no Drug Therapy requiring intensive monitoring for toxicity (Heparin, Nitro, Insulin, Cardizem)? @ -no Were any procedures done? @ -no Diagnosis/symptom? @ -Mood disorder Acute, or Chronic, or Acute on Chronic? @ -Acute Uncomplicated (without systemic symptoms) or Complicated (systemic symptoms)? @ -Complicated Side effects of treatment? @ -no Exacerbation, Progression, or Severe Exacerbation? @ -exacerbation Poses a threat to life or bodily function? How? (Chest pain, USA, NE, pneumonia, PE, COPD, DKA, ARF, appy, cholecystitis, CVA, Diverticulitis, Homicidal, Suicidal, threat to staff... and all critical care pts) @ -no (Thompson Odom) Reevaluation #4: Differential Mental Health Depression, anxiety, bipolar, psychosis, schizophrenia, borderline personality, situational depression, adjustment disorder, behavioral disorder, brain tumor, malingering, substance abuse, encephalopathy, medication reaction, dementia, hypothyroidism, degenerative neurologic disorder, lupus.... This is not meant to be all-inclusive list (Thompson Odom) Medical Decision Making <Bogdan Medeiros - Last Filed: 08/21/24 17:03> <Cory Wang - Last Filed: 08/22/24 03:31> - Lab Data Result diagrams: 08/22/24 09:43 <Thompson Odom - Last Filed: 08/29/24 18:51> - Medical Decision Making I completed the quick note portion of this chart signed GILDARDO Cisneros (Bogdan Medeiros) Patient care signed out to me by previous shift physician, Dr. Herrera. Briefly, patient is a 24-year-old female presents to the emergency department with suicidal ideation. Plan at signout was to follow-up with EPS recommendations. Patient divided by EPS recommended hospital admission. Clinical certification completed. COVID test pending. Diagnosis/symptom? @ -Suicidal ideation Acute, or Chronic, or Acute on Chronic? @ -Default Uncomplicated (without systemic symptoms) or Complicated (systemic symptoms)? @ -Default Side effects of treatment? @ -None Exacerbation, Progression, or Severe Exacerbation] @ -No Poses a threat to life or bodily function? @ -yes (Cory Wang) - Lab Data Lab Results 08/21/24 08/22/24 Range/Units 18:04 05:11 Urine Opiates Screen Not Detected (NotDetected) Ur Oxycodone Screen Not Detected (NotDetected) Urine Methadone Screen Not Detected (NotDetected) Ur Barbiturates Screen Not Detected (NotDetected) U Tricyclic Antidepress Not Detected (NotDetected) Ur Phencyclidine Scrn Not Detected (NotDetected) Ur Amphetamines Screen Not Detected (NotDetected) U Methamphetamines Scrn Not Detected (NotDetected) U Benzodiazepines Scrn Not Detected (NotDetected) Urine Cocaine Screen Not Detected (NotDetected) U Marijuana (THC) Screen Not Detected (NotDetected) SARS-CoV-2 (PCR) Detected A (Not Detectd) Disposition <Bogdan Medeiros - Last Filed: 08/21/24 17:03> <Cory Wang - Last Filed: 08/22/24 03:31> <Thompson Odom - Last Filed: 08/29/24 18:51> Clinical Impression: Suicidal ideation Disposition: TRANSFER TO PSYCH HOSP/UNIT Condition: Stable
[2024-08-21 18:31] LABS: Amphetamine Screen,Urine Not Detected (NotDetected); Barbiturate Screen,Urine Not Detected (NotDetected); Benzodiazepines Screen,Urine Not Detected (NotDetected); Cocaine Screen,Urine Not Detected (NotDetected); Methadone Screen, Urine Not Detected (NotDetected); Opiate Screen,Urine Not Detected (NotDetected); Oxycodone Screen, Urine Not Detected (NotDetected); Phencyclidine Screen,Urine Not Detected (NotDetected); Tricyclic Antidepressant,Urine Not Detected (NotDetected); Urn Cannabinoid Scrn Not Detected (NotDetected)
[2024-08-22] MEDS ORDERED: NALOXONE 0.4 MG/ML 1 ML VIAL IV PRN (06:00)
[2024-08-22 10:13] LABS: Basophils # (A) 0.1 k/uL (0-0.2); Basophils % (A) 1 %; Eosinophils # (A) 0.2 k/uL (0-0.7); Eosinophils % (A) 2 %; HCT 45.5 % (34.0-46.0); HGB 14.7 gm/dL (11.4-16.0); Lymphocytes # (A) 1.1 k/uL (1.0-4.8); Lymphocytes % (A) 13 %; MCH 29.2 pg (25.0-35.0); MCHC 32.3 g/dL (31.0-37.0); MCV 90.4 fL (80.0-100.0); Mean Platelet Volume 6.9; Monocytes # (A) 0.3 k/uL (0-1.0); Monocytes % (A) 4 %; Neutrophils # (A) 6.6 k/uL (1.3-7.7); Neutrophils % (A) 80 %; Platelet Count 367 k/uL (150-450); RBC 5.03 m/uL (3.80-5.40); RDW 12.6 % (11.5-15.5); WBC 8.3 k/uL (3.8-10.6)
[2024-08-22 10:24] LABS: Acetaminophen <10.0 ug/mL; Magnesium 2.1 mg/dL (1.6-2.3); Salicylate <1.0 mg/dL
[2024-08-22 10:50] LABS: Amorphous Sediment,Urine Moderate /hpf; Appearance,Urine Turbid (Clear); Bilirubin,Urine Negative (Negative); Blood,Urine Negative (Negative); Color,Urine Colorless; Glucose,Urine (UA) Negative (Negative); Ketones,Urine Negative (Negative); Leukocyte Esterase,Urine Negative (Negative); Mucus,Urine Rare /hpf; Nitrite,Urine Negative (Negative); PH, Urine 7.5 (5.0-8.0); Protein,Urine Negative (Negative); RBC,Urine 2 /hpf (0-5); Specific Gravity,Urine 1.015 (1.001-1.035); Squamous Epithelial Cell,Urine 6 /hpf (0-4); Urobilinogen,Urine <2.0 mg/dL (<2.0)
--- NOTE | 2024-08-22 11:56 | P.HPIM ---
History of Present Illness H&P Date: 08/22/24 Patient initially admitted to inpatient psychiatric unit and while awaiting to be transferred upstairs her COVID PCR came back positive. Patient to be admitted to inpatient medicine team and to be transferred to inpatient mental health unit once cleared per their COVID regulations/policy. History of Presenting Illness: Patient is a 24-year-old female with a past medical history of autism spectrum disorder, schizoaffective disorder, depression, and PTSD. She presented to the emergency department on 08/21/2024 with a chief complaint of depression and suicidal ideations stating she has been having thoughts of cutting herself over the past 3 days as well as thoughts of jumping or throwing herself down a flight of stairs. On arrival to our facility, patient underwent evaluation in the emergency department. Vital signs upon arrival show blood pressure 114/74, heart rate 83, respiratory rate 17, temp 98.0 F, and SpO2 of 97% on room and urine drug screen completed in the emergency department was negative. Patient was awaiting available bed for inpatient admission to mental health unit when she incidentally tested positive for COVID. Patient transferred under our services for inpatient admission and to be transferred to inpatient mental health unit once cleared by psychiatry per their units COVID regulations/policy. Patient seen and fully evaluated at the bedside. She is currently calm and co operative continues to endorse having suicidal ideations with reports of feeling as though she wants to cut herself or throw herself down a flight of stairs. Patient does report history of attempts of harming herself by throwing herself down the stairs in the past. She reports following outpatient with [facility] and taking psychiatric medications which has helped in the past but states currently depression and suicidal ideations continue to worsen and she is not longer able to control these thoughts. Patient denied having any homicidal ideations, denies having any visual/auditory/tactile hallucinations. Denies drug or alcohol use. She denies having any signs/symptoms of COVID including headache, lightheadedness, dizziness, cough, shortness of breath, or nasal congestion. Patient denies body aches or chills and denies any recent fevers. Review of systems: Pertinent positives and negatives as discussed in HPI, a complete review of systems was performed and all other systems are negative. Physical exam: Vital signs reviewed and stable. General: Nontoxic, no distress and appears stated age. Derm: Skin warm and dry, normal coloration for ethnicity. Head: Atraumatic, normocephalic and symmetric. Eyes: EOM's intact, no lid lag, and anicteric sclera Mouth: no lip lesions, mucus membranes moist Cardiovascular: regular rate and rhythm with normal S1S2, no murmur, positive posterior tibial pulses bilaterally, and cap refill < 2 seconds. Lungs: Respirations even, regular, and unlabored on room air. Lungs CTA bilaterally, no rhonchi, no rales, no wheezing, and no accessory muscle usage. Abdominal: soft, nontender to palpation, no guarding, no appreciable organomegaly Ext: ROM intact. No gross muscle atrophy, no edema, no contractures Neuro: Speech clear, face symmetrical and CN II-XII grossly intact with no noted focal neuro deficits Psych: Alert and oriented to person, place, time, and situation. Appropriate and pleasant affect. Assessment and Plan of Care: Depression with suicidal ideations with expressed thoughts of cutting herself and/or throwing herself down a flight of stairs Autism spectrum disorder Schizoaffective disorder PTSD Anxiety with depression -Patient initially admitted to inpatient mental health unit and was awaiting bed assignment when she incidentally tested positive for COVID-19 virus. Patient admitted to inpatient medicine per psychiatric unit as COVID regulation/lindsey delines. -Suicide precautions in place. -Patient to have continuous one-on-one sitter until further recommendations are provided by psychiatrist. -Home psychiatric medications will be reordered once verified. -Orders placed for CBC, TSH with reflex free T4, magnesium level, acetaminophen level, salicylate level, urine drug screen, urinalysis, and urine hCG. COVID-19 virus detected -Patient currently asymptomatic. Provide supportive and symptomatic care. Data reviewed: -Labs completed and reviewed. CBC unremarkable. Magnesium normal findings at 2.1. TSH 1.030. Urinalysis contaminated specimen but not concerning for infection. Urine hCG was negative. Salicylate level less than 1.0 acetaminophen level less than 10.0. Urine drug screen negative. COVID PCR positive. CMP remains pending. -Vitals reviewed. Blood pressure 108/54, heart rate 92, respiratory rate 18, temp 98.2 F, and SpO2 of 99% on room air. The patient is admitted with an anticipated greater than 2 midnight stay for evaluation of suicidal ideations and COVID positive. CODE STATUS Full Code Discussed with: ED physician, Pt and RN Anticipated discharge date: Pending clinical course Anticipated discharge place: Psychiatric Unit Patient was seen independently by Nurse Practitioner. This document was prepared using [employer] dictation software. Please allow for errors in die caster while rare they do occur. Souleymane Chapa NP rendered care for this patient independently, reviewed the findings and plan as documented in the note above and agree with plan. I did not physically speak with or examine the patient on this date.s 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 History of Any Multi-Drug Resistant Organisms: None Reported Past Surgical History: EPS Additional Past Surgical History / Comment(s): hx of suicidal thoughts, none recent Past Anesthesia/Blood Transfusion Reactions: No Reported Reaction Past Psychological History: Depression, PTSD, Schizoaffective Disorder Smoking Status: Never smoker Past Alcohol Use History: None Reported Past Drug Use History: None Reported Medications and Allergies Home Medications Medication Instructions Recorded Confirmed Type FLUoxetine HCL [PROzac] 30 mg PO DAILY 30 Days #90 cap 08/05/24 08/22/24 Rx Paliperidone IM [Invega Sustenna] 156 mg IM Q21D 08/22/24 08/22/24 History Allergies Allergy/AdvReac Type Severity Reaction Status Date / Time No Known Allergies Allergy Verified 08/22/24 09:29 Physical Exam Vitals: Vital Signs Temp Pulse Resp BP Pulse Ox 08/22/24 05:11 98.2 F 92 18 108/54 99 08/21/24 22:33 97.9 F 85 17 104/63 97 08/21/24 16:57 98.0 F 83 17 114/74 97 Intake and Output 08/21/24 08/22/24 08/22/24 22:59 06:59 14:59 Other: Weight 63.503 kg Results CBC & Chem 7: 08/22/24 09:43 Labs: Abnormal Lab Results - Last 24 Hours (Table) 08/22/24 Range/Units 05:11 SARS-CoV-2 (PCR) Detected A (Not Detectd)
--- NOTE | 2024-08-22 17:15 | P.CN ---
Psychiatric Consult - . Consult date: 08/22/24 Consult:: 08/22/24 17:01 IDENTIFYING DATA: This patient is a 24-year-old female REASON FOR REFERRAL: Psychiatry was consulted for HISTORY OF PRESENT ILLNESS: The patient presented to the hospital with a petition from police, stating "Jerry told me she was having suicidal thoughts for a few days. She planned on cutting her wrists or jumping into traffic". Patient is on the medical floor due to being positive for COVID-19. Patient states that she has been feeling significantly frustrated after losing her job due to psychosis and being unsuccessful in her current job search. As result of this frustration, she endorses having vivid dreams about self-harm and suicidal ideation. She reports she has been contemplating wanting to cut her wrist with a knife. She reported to others that she is considering jumping down stairs or in front of traffic. In psychiatric review of systems, patient reports good sleep, good appetite, fair energy, and good concentration. She denies symptoms consistent with liu. She reports being compliant with her psychotropic medications and states that they have been significantly helpful for her psychotic symptoms. At this time patient denies any suicidal or homicidal ideations, intent or plan. Patient denies any auditory, visual hallucinations and denies any paranoia or delusions. Patients denies using any substances. PAST PSYCHIATRIC HISTORY: Patient has a history of schizoaffective disorder, autism spectrum disorder, PTSD. Patient is currently prescribed Invega Sustenna 156 mg IM every 3 weeks and prozac 30 mg daily. Patient reports 5 previous inpatient hospitalizations, last being at this facility back in July 2024 (discharged on 08/05/24). Patient follows with [facility] and sees Dr. Banda. Patient reports >5 suicide attempts, most recent being in 2019. PAST MEDICAL HISTORY: Past Medical History: No Reported History Additional Past Medical History / Comment(s): Charcot Monalisa Tooth Type 1A History of Any Multi-Drug Resistant Organisms: None Reported Past Surgical History: EPS Additional Past Surgical History / Comment(s): hx of suicidal thoughts, none recent Past Anesthesia/Blood Transfusion Reactions: No Reported Reaction Past Psychological History: Depression, PTSD, Schizoaffective Disorder Smoking Status: Never smoker Past Alcohol Use History: None Reported Past Drug Use History: None Reported ALLERGIES: as per EMR. CHEMICAL DEPENDENCY HISTORY: Denies FAMILY PSYCHIATRIC/SUBSTANCE USE HISTORY: Maternal grandmother- depression Mother - "nothing diagnosed" Maternal aunts and uncles - alcohol and drug addiction Father's aunt- completed suicide Schizophrenia and depression runs in father's family. SOCIAL HISTORY: Patient was born and raised in [place]. She is unemployed, living with her mom and uncle, single with no kids. Parents when she was 5 yo. Has a maternal half-brother and paternal step-brother. Not close with father. 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 MENTAL STATUS EXAM: General Appearance: Patient appears to be stated age is alert, directable, and attempts to cooperate. Patient appears to have fair hygiene and grooming. She is tall, wears glasses Behavior: Patient is seated without any agitated behavior. Speech: Patient's speech is fluent and nonpressured. Mood/Affect: Patient reports their mood is depressed, affect is congruent and constricted. Suicidality/Homicidality: Patient denies having any homicidal ideation intent or plan. Denies any suicidal ideations intent or plan Perceptions: Patient denies any visual hallucinations and denies any auditory hallucinations Though content/process: There is no evidence of any delusional thought content and thought process is linear. Memory and concentration: AOX3, grossly intact for the purposes of this session. Can spell "WORLD" backwards Judgment and insight: Fair IMPRESSIONS: Schizoaffective disorder, depressed type Autism spectrum disorder PTSD Adjustment disorder with depressed mood PLAN: -At this time patient DOES meet criteria for inpatient psychiatric admission. -Would recommend the following medication changes/additions: Administer Invega Sustenna q3w 156 mg tomorrow, with next being due on 09/13/24 Increase Prozac to 40 mg daily for low mood -Continue 1:1 sitter for safety -Cannot leave AMA at this time. Patient will need a petition and certification if attempting to leave AMA. -dry cure worker to provide patient with outpatient mental health/psychiatry resources for appropriate follow up upon discharge -When medically stable, patient is eligible for transfer to a psych bed when available. Unable to be transferred currently due to being positive for COVID-19 -Will continue to follow along -Please contact with any questions.
[2024-08-23] MEDS: FLUoxetine HCL 20 MG CAP PO SCH (08:31)
[2024-08-23] MEDS: PALIPERIDONE IM 156 MG/ML SYG IM SCH (12:01)
--- NOTE | 2024-08-23 16:59 | P.PN ---
Subjective Progress Note Date: 08/23/24 Hospital course Patient is a 24-year-old female with a past medical history of autism spectrum disorder, schizoaffective disorder, depression, and PTSD. She presented to the emergency department on 08/21/2024 with a chief complaint of depression and suicidal ideations stating she has been having thoughts of cutting herself over the past 3 days as well as thoughts of jumping or throwing herself down a flight of stairs. On arrival to our facility, patient underwent evaluation in the emergency department. Vital signs upon arrival show blood pressure 114/74, heart rate 83, respiratory rate 17, temp 98.0 F, and SpO2 of 97% on room and urine drug screen completed in the emergency department was negative. Patient was awaiting available bed for inpatient admission to mental health unit when she incidentally tested positive for COVID. Patient transferred under our services for inpatient admission and to be transferred to inpatient mental health unit once cleared by psychiatry per their units COVID regulations/policy. Physical exam: Patient seen and fully evaluated at bedside. She reports feeling anxious and continues to report depression today. Psychiatry did see patient yesterday Vital signs reviewed and stable. General: Nontoxic, no distress and appears stated age. Derm: Skin warm and dry, normal coloration for ethnicity. Head: Atraumatic, normocephalic and symmetric. Eyes: EOM's intact, no lid lag, and anicteric sclera Mouth: no lip lesions, mucus membranes moist Cardiovascular: regular rate and rhythm with normal S1S2, no murmur, positive posterior tibial pulses bilaterally, and cap refill < 2 seconds. Lungs: Respirations even, regular, and unlabored on room air. Lungs CTA bilatera lly, no rhonchi, no rales, no wheezing, and no accessory muscle usage. Abdominal: soft, nontender to palpation, no guarding, no appreciable organomegaly Ext: ROM intact. No gross muscle atrophy, no edema, no contractures Neuro: Speech clear, face symmetrical and CN II-XII grossly intact with no noted focal neuro deficits Psych: Alert and oriented to person, place, time, and situation. Appropriate and pleasant affect. Assessment and Plan of Care: Depression with suicidal ideations with expressed thoughts of cutting herself and/or throwing herself down a flight of stairs Autism spectrum disorder Schizoaffective disorder PTSD Anxiety with depression -Patient initially admitted to inpatient mental health unit and was awaiting bed assignment when she incidentally tested positive for COVID-19 virus. Patient admitted to inpatient medicine per psychiatric unit as COVID regulation/guidelines. -Suicide precautions in place. -Patient to have continuous one-on-one sitter until further recommendations are provided by psychiatrist. -Home psychiatric medications will be reordered once verified. -Psychiatrist evaluated increasing patient's Prozac to 40 mg daily and increasing her on Invega 156 mg IM q. 21 days. COVID-19 virus detected -Patient currently asymptomatic. Provide supportive and symptomatic care. Data reviewed: -Labs completed and reviewed. CBC unremarkable. Magnesium 2.1. TSH 1.030. Urinalysis negative for infection urine hCG negative. Salicylates negative at less than 1.0 acetaminophen less than 10.0. Urine drug screen negative. -Vitals reviewed. Blood pressure 115/77, heart rate 90, respiratory rate 15, temp 98.4 F, and SpO2 of 98% on room air. The patient is admitted with an anticipated greater than 2 midnight stay for evaluation of suicidal ideations and COVID positive. CODE STATUS Full Code Discussed with: ED physician, Pt and RN Anticipated discharge date: Pending clinical course Anticipated discharge place: Psychiatric Unit Patient was seen independently by Nurse Practitioner. This document was prepared using [employer] dictation software. Please allow for errors in shoe trimmer while rare they do occur. Souleymane Chapa NP rendered care for this patient independently, reviewed the findings and plan as documented in the note above and agree with plan. I did not physically speak with or examine the patient on this date. Objective - Vital Signs Vital signs: Vital Signs Temp 98.4 F 08/22/24 16:13 Pulse 100 08/23/24 06:42 Resp 18 08/23/24 06:42 BP 100/66 08/23/24 06:42 Pulse Ox 98 08/23/24 06:42 FiO2 - Labs CBC & Chem 7: 08/22/24 09:43 Labs: Abnormal Lab Results - Last 24 Hours (Table) 08/22/24 Range/Units 10:00 Urine Appearance Turbid H (Clear) Ur Squamous Epith Cells 6 H (0-4) /hpf Amorphous Sediment Moderate H (None) /hpf Urine Mucus Rare H (None) /hpf
[2024-08-24 07:40] VITALS: PULSE 78; TEMP 98.4
--- NOTE | 2024-08-24 14:59 | P.DS ---
Providers Date of admission: 08/22/24 06:01 Expected date of discharge: 08/24/24 Attending physician: Sascha Steele Consults: 08/22/24 06:00 Consult Physician Routine Consulting Provider: Psychiatry - [facility] Psychiatry Consult Reason/Comments: suicidal Do you want consulting provider notified?: Yes Primary care physician: Stated None Hospital Course: Discharge Diagnosis: Depression with suicidal ideations with expressed thoughts of cutting herself and/or throwing herself down a flight of stairs. Psychiatrist evaluated increasing patient's Prozac to 40 mg daily and increasing her on Invega 156 mg IM q. 21 days. Patient underwent continued monitoring and currently reports feeling great stating depression has improved and she is no longer having thoughts of hurting herself. Psychiatry reevaluated clearing patient from their perspective stating patient no longer meets inpatient criteria. Recommending discharging patient home on 2-week prescription for increased dose of Prozac and patient to follow-up with [facility] for continued prescription. Autism spectrum disorder Schizoaffective disorder. PTSD Anxiety with depression COVID-19 virus detected -Patient currently asymptomatic. Provide supportive and symptomatic care. Hospital course Patient is a 24-year-old female with a past medical history of autism spectrum disorder, schizoaffective disorder, depression, and PTSD. She presented to the emergency department on 08/21/2024 with a chief complaint of depression and suicidal ideations stating she has been having thoughts of cutting herself over the past 3 days as well as thoughts of jumping or throwing herself down a flight of stairs. On arrival to our facility, patient underwent evaluation in the emergency department. Vital signs upon arrival show blood pressure 114/74, heart rate 83, respiratory rate 17, temp 98.0 F, and SpO2 of 97% on room and urine drug screen completed in the emergency department was negative. Patient was awaiting available bed for inpatient admission to mental health unit when she incidentally tested positive for COVID. Patient transferred under our services for inpatient admission and to be transferred to inpatient mental [facility] unit once cleared by psychiatry per their units COVID regulations/policy.Psychiatrist evaluated increasing patient's Prozac to 40 mg daily and increasing her on Invega 156 mg IM q. 21 days. Patient underwent continued monitoring and currently reports feeling great stating depression has improved and she is no longer having thoughts of hurting herself. Patient denies having any suicidal, homicidal ideations and denies having any visual/auditory/tactile hallucinations. Psychiatry reevaluated clearing patient from their perspective stating patient no longer meets inpatient criteria. Rec ommending discharging patient home on 2-week prescription for increased dose of Prozac and patient to follow-up with [facility] for continued prescription. Patient is medically optimized from medical standpoint and as stated above cleared from psychiatry standpoint and is stable for discharge home with family at this time. A safety contract was signed by patient with mental health EPS nurse. Physical exam: Vital signs reviewed and stable. General: Nontoxic, no distress and appears stated age. Derm: Skin warm and dry, normal coloration for ethnicity. Head: Atraumatic, normocephalic and symmetric. Eyes: EOM's intact, no lid lag, and anicteric sclera Mouth: no lip lesions, mucus membranes moist Cardiovascular: regular rate and rhythm with normal S1S2, no murmur, positive posterior tibial pulses bilaterally, and cap refill < 2 seconds. Lungs: Respirations even, regular, and unlabored on room air. Lungs CTA bilaterally, no rhonchi, no rales, no wheezing, and no accessory muscle usage. Abdominal: soft, nontender to palpation, no guarding, no appreciable organomegaly Ext: ROM intact. No gross muscle atrophy, no edema, no contractures Neuro: Speech clear, face symmetrical and CN II-XII grossly intact with no noted focal neuro deficits Psych: Alert and oriented to person, place, time, and situation. Appropriate and pleasant affect. A total of 31 minutes of time were spent preparing this complex discharge summary. Pt was discharged on 08/24/2024 at 2:55 PM. Patient was seen independently by Nurse Practitioner. This document was prepared using [employer] dictation software. Please allow for errors in air defense specialist while rare they do occur. Souleymane Chapa NP rendered care for this patient independently, reviewed the findings and plan as documented in the note above. I did not physically speak with or examine the patient on this date. Patient Condition at Discharge: Stable Plan - Discharge Summary New Discharge Prescriptions: New FLUoxetine HCL [PROzac] 40 mg PO DAILY 15 Days #30 cap Continue Paliperidone IM [Invega Sustenna] 156 mg IM Q21D Discontinued FLUoxetine HCL [PROzac] 30 mg PO DAILY 30 Days #90 cap Discharge Medication List Paliperidone IM [Invega Sustenna] 156 mg IM Q21D 08/22/24 [History] FLUoxetine HCL [PROzac] 40 mg PO DAILY 15 Days #30 cap 08/24/24 [Rx] Follow up Appointment(s)/Referral(s): [facility] [NON-STAFF] - 1 Week Patient Instructions/Handouts: Depression (DC), Help Prevent Suicide (DC), COVID-19 (Coronavirus Disease 2019) (DC) Activity/Diet/Wound Care/Special Instructions: Activity: As tolerated. Diet: Regular diet Special Instructions: Take all of your medications as directed and remember to keep all of your doc tor's appointments and follow-up as needed. Make sure you reschedule your appointment with [facility] for posthospitalization follow-up. You are provided with a 2-week prescription as recommended by psychiatry for your increased dose of Prozac. You will need additional scripts/refills from [facility]. Thank you for allowing us to participate in your care, it was truly a pleasure having you for our patient!!! Discharge/Stand Alone Forms: Outpatient Therapy List, Outpatient Counseling, Who Do I Call? Discharge Disposition: HOME SELF-CARE
[2024-08-24 15:27] VITALS: BP 122/78; RESP 18
--- NOTE | 2024-08-24 16:14 | P.PN ---
Subjective Progress Note Date: 08/24/24 Hospital course Patient is a 24-year-old female with a past medical history of autism spectrum disorder, schizoaffective disorder, depression, and PTSD. She presented to the emergency department on 08/21/2024 with a chief complaint of depression and suicidal ideations stating she has been having thoughts of cutting herself over the past 3 days as well as thoughts of jumping or throwing herself down a flight of stairs. On arrival to our facility, patient underwent evaluation in the emergency department. Vital signs upon arrival show blood pressure 114/74, heart rate 83, respiratory rate 17, temp 98.0 F, and SpO2 of 97% on room and urine drug screen completed in the emergency department was negative. Patient was awaiting available bed for inpatient admission to mental health unit when she incidentally tested positive for COVID. Patient transferred under our services for inpatient admission and to be transferred to inpatient mental health unit once cleared by psychiatry per their units COVID regulations/policy. Physical exam: Patient seen and fully evaluated at bedside. She reports feeling much better today states that she is no longer feeling depressed or having thoughts of hurting herself. Vital signs reviewed and stable. General: Nontoxic, no distress and appears stated age. Derm: Skin warm and dry, normal coloration for ethnicity. Head: Atraumatic, normocephalic and symmetric. Eyes: EOM's intact, no lid lag, and anicteric sclera Mouth: no lip lesions, mucus membranes moist Cardiovascular: regular rate and rhythm with normal S1S2, no murmur, positive posterior tibial pulses bilaterally, and cap refill < 2 seconds. Lungs: Respirations even, regular, and unlabored on room air. Lungs CTA bilaterally, no rhonchi, no rales, no wheezing, and no accessory muscle usage. Abdominal: soft, nontender to palpation, no guarding, no appreciable organomegaly Ext: ROM intact. No gross muscle atrophy, no edema, no contractures Neuro: Speech clear, face symmetrical and CN II-XII grossly intact with no noted focal neuro deficits Psych: Alert and oriented to person, place, time, and situation. Appropriate and pleasant affect. Assessment and Plan of Care: Depression with suicidal ideations with expressed thoughts of cutting herself and/or throwing herself down a flight of stairs Autism spectrum disorder Schizoaffective disorder PTSD Anxiety with depression -Patient initially admitted to inpatient mental health unit and was awaiting bed assignment when she incidentally tested positive for COVID-19 virus. Patient admitted to inpatient medicine per psychiatric unit as COVID regulation/guidelines. -Suicide precautions in place. -Patient to have continuous one-on-one sitter until further recommendations are provided by psychiatrist. -Home psychiatric medications will be reordered once verified. -Psychiatrist evaluated increasing patient's Prozac to 40 mg daily and increasing her on Invega 156 mg IM q. 21 days. COVID-19 virus detected -Patient currently asymptomatic. Provide supportive and symptomatic care. Data reviewed: -Vitals reviewed. Blood pressure 114/66, heart rate 78, respiratory rate 16, t emp 98.4 F, and SpO2 of 97% on room air CODE STATUS Full Code Anticipated discharge date: Pending clinical course Anticipated discharge place: Psychiatric Unit Patient was seen independently by Nurse Practitioner. This document was prepared using EPIS dictation software. Please allow for errors in pet feeder while rare they do occur. Souleymane Chapa NP rendered care for this patient independently, reviewed the findings and plan as documented in the note above and agree with plan. I did not physically speak with or examine the patient on this date. Objective - Vital Signs Vital signs: Vital Signs Temp 98.4 F 08/24/24 07:39 Pulse 78 08/24/24 07:39 Resp 16 08/24/24 07:39 BP 114/66 08/24/24 07:39 Pulse Ox 97 08/24/24 07:39 FiO2 - Labs CBC & Chem 7: 08/22/24 09:43
== END 2024-08-24 15:41 | disposition home or self-care (01) ==
LOC: EC 16:45 → 6NMEDSUR 08-22 06:01
PROVIDERS: ADMIT Student in an Organized Health Care Education/Training Program; ATTEND Student in an Organized Health Care Education/Training Program
DX: U07.1 COVID-19 (principal); R45.851 Suicidal ideations; F25.1 Schizoaffective disorder, depressive type; F43.21 Adjustment disorder with depressed mood; F32.9 Major depressive disorder, single episode, unspecified; F84.0 Autistic disorder; F43.10 Post-traumatic stress disorder, unspecified; F41.9 Anxiety disorder, unspecified; Z79.899 Other long term (current) drug therapy; Z56.0 Unemployment, unspecified; Z91.51 Personal history of suicidal behavior; Z74.3 Need for continuous supervision
CPT/HCPCS: 96372; 99285; 84443; 83735; 85025; 81001; 81025; 80306; 80143; 87635; 80179; G0378 ×2; J2426